=== PATIENT | female | born 1965 | race Caucasian/White ===

== ENCOUNTER 2016-06-18 16:03 | Emergency (ER) | payer BC ==
--- NOTE | 2016-06-18 17:11 | ED ---
General Adult HPI - General Chief complaint: Psychiatric Symptoms Stated complaint: Can't Sleep Time Seen by Provider: 06/18/16 16:38 Source: patient, family, RN notes reviewed Mode of arrival: ambulatory Limitations: no limitations - History of Present Illness Initial comments: Chief complaint and history of present illness is a 50-year-old female with a complaint of not being able to sleep for a prolonged period of time. States she 's been depressed. Denies being suicidal but says he just doesn't care anymore. - Related Data Home Medications Medication Instructions Recorded Confirmed QUEtiapine [SEROquel] 150 mg PO HS 06/18/16 06/18/16 Topiramate [Topamax] 100 mg PO HS 06/18/16 06/18/16 clonazePAM [KlonoPIN] 1 mg PO BID 06/18/16 06/18/16 Allergies Allergy/AdvReac Type Severity Reaction Status Date / Time Tetracyclines Allergy Anaphylaxis Verified 06/18/16 16:46 Review of Systems ROS Statement: Those systems with pertinent positive or pertinent negative responses have been documented in the HPI. Review of systems denying any headache or chest pain or shortness of breath no GI/ problems this time. Emotionally the patient is distressed Sleep. She seeing a psychiatrist has been manipulating medications nor can her sleep which she's not been able to. She does report she drinks wine 3 times weekly in order to help her sleep but is only good for several hours. Patient denying any chronic medical problems that need treatment at this time. All systems reviewed. Past medical problems significant for depression which started after she lost boy twin at 26 weeks of gestation. The sister survived. She is 25 years old now. The patient has had multiple surgeries to of which were new [place] pl[place] for hiatal hernia. The last one just 4 months ago. While in the hospital that time she started him difficulty sleeping has not been helpful to become regular since then. Other medical problems include chronic neck pain for which she is taking Botox injections which haven't helped. She's had a surgeries include hysterectomy, benign left knee surgeries 1 right knee surgery. Reconstruction left ankle, surgery left rotator cuff, tonsils and adenoids and cholecystectomy. Family history mother had uterine cancer, and uncle had colon cancer and a grandmother had pink ready cancer. She does not smoke. Drinks wine 3 times weekly. ROS Other: All systems not noted in ROS Statement are negative. Past Medical History Past Medical History: GERD/Reflux Additional Past Medical History / Comment(s): hypotension, CHRONIC NAUSEA History of Any Multi-Drug Resistant Organisms: None Reported Past Surgical History: Section, Cholecystectomy, Hysterectomy, Orthopedic Surgery Additional Past Surgical History / Comment(s): left shoulder, left knee x9, left ankle ligament sx, right leg burstula, breast cyst, hip cyst, neck surgery , greg 4 years ago Past Anesthesia/Blood Transfusion Reactions: No Reported Reaction Past Psychological History: Anxiety, Depression Smoking Status: Former smoker Past Alcohol Use History: Occasional Past Drug Use History: None Reported - Past Family History Mother Family Medical History: Cancer Additional Family Medical History / Comment(s): cervical cancer General Exam - General Exam Comments Initial Comments: General: The patient is awake and alert, crying and distress. States she is depressed, states she just doesn't care anymore. States she's not able to sleep at all. His fatigued all the time. Medication alterations by her psychiatrist haven't resulted in adequate resolution of the sleep problems. Vital signs show temperature 90.8 pulse 83 respiratory rate 20 pulse ox 98% room air blood pressure 137/101. Elevated systolic diastolic noted. Patient will be observed Eye: Pupils are equal, round and reactive to light, extra-ocular movements are intact ; there is normal conjunctiva bilaterally. No signs of icterus. Ears, nose, mouth and throat: There are moist mucous membranes and no oral lesions. Neck: The neck is supple, there is no tenderness or JVD. Cardiovascular: There is a regular rate and rhythm. No murmur, rub or gallop is appreciated. Respiratory: Lungs are clear to auscultation, respirations are non-labored, breath sounds are equal. No wheezes, stridor, rales, or rhonchi. Gastrointestinal: Soft, non-distended, non-tender abdomen without masses or organomegaly noted. There is no rebound or guarding present. No CVA tenderness. Bowel sounds are unremarkable. Back: There is no tenderness to palpation in the midline. There is no obvious deformity. No rashes noted. Musculoskeletal: Normal ROM, no tenderness, There is no pedal edema. There is no calf tenderness or swelling. Sensation intact. Pulses equal bilaterally 2+. Neurological: No evidence of any neuro deficits. No complaints of weakness numbness or tingling. Skin: Skin is warm and dry and no rashes or lesions are noted. Psychiatric: Cooperative, sad, depressed, denies suicide but states she just doesn't care anymore. Unable to sleep. No medications are helping. History of depression.. Limitations: no limitations Course Vital Signs 06/18/16 06/18/16 16:09 19:09 Temperature 98.4 F Pulse Rate 83 78 Respiratory 20 16 Rate Blood Pressure 137/101 131/94 O2 Sat by Pulse 98 98 Oximetry Medical Decision Making - Medical Decision Making Patient's breath alcohol was negative. Her urine drugs negative. She was evaluated by the psychiatric nurse who spoke with psychiatrist on-call. The plans for the patient be discharged home to the care of her . Her cervical be doubled the current dose. And she'll be following up with her psychiatrist this week. was told return emergency room with her should she have any difficulties. - Lab Data Lab Results 06/18/16 Range/Units 16:10 Urine Opiates Screen Not Detected (NotDetected) Ur Oxycodone Screen Not Detected (NotDetected) Urine Methadone Screen Not Detected (NotDetected) Ur Propoxyphene Screen Not Detected (NotDetected) Ur Barbiturates Screen Not Detected (NotDetected) U Tricyclic Antidepress Not Detected (NotDetected) Ur Phencyclidine Scrn Not Detected (NotDetected) Ur Amphetamines Screen Not Detected (NotDetected) U Methamphetamines Scrn Not Detected (NotDetected) U Benzodiazepines Scrn Not Detected (NotDetected) Urine Cocaine Screen Not Detected (NotDetected) U Marijuana (THC) Screen Not Detected (NotDetected) Disposition Clinical Impression: Depression Disposition: HOME SELF-CARE Condition: Fair Instructions: Depression (ED) Additional Instructions: Follow-up with your psychiatrist this week. He wants to do double her Seroquel dose here currently taking. Time of Disposition: 19:23
[2016-06-18 19:10] VITALS: RESP 16
[2016-06-18 20:45] VITALS: BP 137/90; PULSE 81; TEMP 98.1
== END 2016-06-18 20:44 | disposition home or self-care (01) ==
LOC: EC 16:03
DX: F32.9 Major depressive disorder, single episode, unspecified (principal); F41.9 Anxiety disorder, unspecified; Z87.891 Personal history of nicotine dependence; Z79.899 Other long term (current) drug therapy; Z88.1 Allergy status to other antibiotic agents
CPT/HCPCS: 80306; 82075; 99283

== ENCOUNTER → 2016-10-20 | Outpatient (CLI) | payer BC ==
--- NOTE | 2016-10-21 06:32 | CONS ---
DATE OF CONSULTATION: 10/20/2016 A 50-year-old lady had been evaluated in sleep center for sleep problem and possible obstructive sleep apnea hypopnea syndrome. HISTORY OF PRESENT ILLNESS/SLEEP WAKE EVALUATION: SLEEP SCHEDULE: The patient usually goes to bed around 9:30 to 10 p.m. FALLING ASLEEP: Sometimes she falls asleep well, but sometimes she takes for her long time to fall asleep and sometimes she referred that she does not sleep at all, although according to her she possibly sleeps, but does not realize how much. DURING SLEEP: She sleeps very short intervals and she wakes up multiple times with episodes of nocturia up to 3 times. She snores, wakes up with grinding teeth, dry mouth, panic attack, heartburn, restless legs, sweating. She has jerking movements and possible kicking during the night, night sweats. No clear history of hypnagogic hallucinations, sleep paralysis or cataplexy. DURING THE DAY/WAKE STATE: During the day, she feels extremely sleepy according to her. [place] sleepiness scale which increased to 24. PAST MEDICAL HISTORY: Positive for acid reflux, irritable bowel syndrome, allergy. PAST SURGICAL HISTORY: Tawnya fundoplication, hysterectomy, neck surgery, C- section, cholecystectomy, tonsillectomy, left knee surgery, left hip surgery and left shoulder surgery. MEDICATIONS: ( ), Flexeril, Prilosec, Topamax, Bentyl, multivitamins, Flonase, Zofran. SOCIAL HISTORY: Positive for smoking up to 2 packs a day for 20 years, quit about 7 years ago. Alcohol consumption occasional. REVIEW OF SYSTEMS: Awakenings from sleep, pain in her neck, probably with the bowel movements.No fevers. No double vision. No recent chest pain. No shortness of breath. No abdominal pain. No bleeding episodes. No blood in urine. No seizure episodes. FAMILY HISTORY: Hypertension, angina, heart problems, hyperlipidemia, stroke, arthritis, asthma, sinus problems, bronchitis, lung problems, sleep apnea, snoring, pneumonia, headaches, cancer, insomnia, acid reflux, ulcers, nasal polyps, anemia, mental illness, restless legs. PHYSICAL EXAMINATION: During physical exam, a 50-year-old lady without distress. VITAL SIGNS: BP 118/81. HR 82. RR 12. Height 64-1/2 inches, weight 142.2. BMI 23.9. Neck 13 inches in circumference. Temperature 98.. Oxygen saturation in room air 94%. HEENT: PERRLA, EOMI: Evaluation of oropharynx showed moderately low position of soft palate. Practically normal distance between soft palpate and posterior pharyngeal wall, slight restriction of nasal breathing. NECK: Supple No JVD. Thyroid is not palpable. LUNGS: Clear to percussion and to auscultation. Good air exchange. No wheezing or rhonchi. HEART: S1, S2 regular. No murmurs, gallops or rubs. ABDOMEN: Soft and nontender. Bowels sounds are present. No organomegaly appreciated. EXTREMITIES: No clubbing or cyanosis. RADIOLOGIC ELECTRONIC SPECIALIST: Awake, alert and oriented x3. Cranial nerves 2 to 7 intact. There is no fasciculation or atrophy noted. No focal deficits observed. IMPRESSION: 1. Snoring, multiple awakenings from sleep with multiple episodes of ( ) , tiredness and sleepiness during the day with extremely high [place] sleepiness scale 24. Rule out obstructive sleep apnea hypopnea syndrome. 2. Sleep state misperception. 3. History of kicking at night, periodic limb movements. 4. Restless leg syndrome. 5. Acid reflux. 6. Allergy. 7. Irritable bowel syndrome. 8. Status post Tawnya fundoplication. 9. Status post hysterectomy. 10. Status post left shoulder surgery. 11. Status post neck surgery. 12. Status post cholecystectomy. 13. Status post tonsillectomy. 14. Status post left knee surgery. 15. Status post left hip surgery. PLAN: 1. Polysomnography for evaluation of patient's breathing during sleep. 2. CPAP/BiPAP titration if sleep study confirms obstructive sleep apnea- hypopnea syndrome. 3. Preferable position during sleep on the side. 4. No driving if patient feels any sleepiness. Patient is aware of civil and criminal liability for unsafe driving. 5. I will see patient for follow-up visit to explain results of the testing and following plan. Thank you very much for referring this patient for consultation. Sincerely, Garrett Lopez MD, PhD, FAASM Diplomat of [place] [employer] Sleep Medicine Board by [place] [employer] [place] [employer] Network Support Analyst of [facility] [place]. PATRICK
== END | disposition home or self-care (01) ==
LOC: SLEEP 11:56
PROVIDERS: ATTEND Internal Medicine
DX: F51.02 Adjustment insomnia (principal); R06.83 Snoring; G25.81 Restless legs syndrome; K21.9 Gastro-esophageal reflux disease without esophagitis; T78.40XA Allergy, unspecified, initial encounter; K58.9 Irritable bowel syndrome, unspecified; Z90.710 Acquired absence of both cervix and uterus; Z90.49 Acquired absence of other specified parts of digestive tract; Z87.891 Personal history of nicotine dependence; Z98.890 Other specified postprocedural states
CPT/HCPCS: 99211

== ENCOUNTER → 2017-04-14 | Outpatient (CLI) | payer BC ==
--- NOTE | 2017-04-17 19:58 | MR ---
EXAMINATION TYPE: MR cervical spine wo/w con DATE OF EXAM: 04/14/2017 COMPARISON: Cervical spine radiographs dated 12/04/2014 HISTORY: Neck pain, headaches, BUE weakness TECHNIQUE: Multiplanar, multisequence images of the cervical spine were acquired utilizing 7.5 mL intravenous Ga davist gadolinium contrast. Diffusion weighted imaging was performed. FINDINGS: There is postsurgical anterior cervical fusion device from C4 through C6. Multilevel disc d esiccation is seen in the cervical spine. There is no evidence of malalignment or vertebral body heig ht loss. T1/T2 hyperintense well-circumscribed vertebral body hemangioma is present of T3. Degenerati ve endplate changes seen at the inferior end plate of C2. Otherwise bone marrow signal is within norm al limits. Spinal cord segment is also within normal limits. There is no abnormal postcontrast enhanc ement within the spinal cord or cervical spine. Visualized portion of the posterior fossa is grossly unremarkable. C2-C3: There is a broad-based posterior central disc osteophyte complex without significant spinal ca nal stenosis or neural foraminal narrowing. C3-C4: There is a small posterior disc osteophyte complex minimally narrowing the spinal canal gratin g mild spinal canal stenosis as it narrows the ventral subarachnoid space. No neural foraminal narrow ing is seen. C4-C5: Postsurgical changes of a cervical fusion are noted. No significant residual disc disease or n eural foraminal narrowing. No spinal canal stenosis. C5-C6: Postsurgical changes of a cervical fusion are noted. No significant residual disc disease or r ight-sided foraminal narrowing. Uncovertebral hypertrophy creates mild left neural foraminal narrowin g. No spinal canal stenosis. C6-C7: Small left paracentral disc herniation creates mild spinal canal stenosis as a narrows the anat tral subarachnoid space. Uncovertebral hypertrophy also creates mild bilateral neural foraminal narro wing. C7-T1: No evidence for degenerative disc disease. No disc bulge/herniation or protrusion. No Canal stenosis. Foramina are patent bilaterally. Cervical segments are intact. There is normal alignment. Cervical spinal cord is of normal signal. Craniovertebral junction relationships are within normal limits. IMPRESSION: Small left paracentral disc herniation at C6-C7 creating mild spinal canal stenosis. Uncovertebral hy pertrophy at this level creates mild bilateral neural foraminal narrowing. 2. Postsurgical changes of anterior cervical fusion device from C4 through C6 without abnormal postco ntrast enhancement to suggest epidural fibrosis. 3. Mild multilevel degenerative disc disease of the cervical spine as described above creating mild l eft neural foraminal narrowing at C5-C6, mild spinal canal stenosis at C3-C4, and mild bilateral neur al foraminal narrowing at C6-C7.
== END | disposition home or self-care (01) ==
LOC: RADMRIMAIN 15:45
PROVIDERS: ATTEND Family Medicine
DX: M48.02 Spinal stenosis, cervical region (principal); M99.71 Connective tissue and disc stenosis of intervertebral foramina of cervical region; M50.123 Cervical disc disorder at C6-C7 level with radiculopathy; Z98.1 Arthrodesis status
CPT/HCPCS: 72156; A9581

== ENCOUNTER 2017-05-13 09:19 | Emergency (ER) | payer BC ==
[2017-05-13 09:25] VITALS: RESP 16
[2017-05-13] MEDS ORDERED: PROPARACAINE 0.5% OPHTH DROPS 15 ML BTL ONE (09:46)
[2017-05-13] MEDS ORDERED: PROPARACAINE 0.5% OPHTH DROPS 15 ML BTL LEFT EYE STA (09:46)
--- NOTE | 2017-05-13 10:29 | ED ---
General Adult HPI - General Chief complaint: Eye Problems Stated complaint: [place] paint in eye Time Seen by Provider: 05/13/17 09:45 Source: patient, family, RN notes reviewed Mode of arrival: ambulatory Limitations: no limitations - History of Present Illness Initial comments: Patient 51-year-old female who presents emergency room today with chief complaint of increased irritation to both right and left side. She states that yesterday she was using some spray pain. She states she uses turpentine to cleaning up afterwards. She states she believes and she washed her face and maybe had some leftover residue of the turpentine and hands. She states as the day went on she had increased irritation especially to the right eye with some mild irritation to the left. Patient does admit that she did something similar back in the summer time. She denies any other complaints or symptoms. Patient denies any recent fever, chills, shortness of breath, chest pain, back pain, abdominal pain, nausea or vomiting, numbness or tingling, headaches, or any other complaints. - Related Data Home Medications Medication Instructions Recorded Confirmed QUEtiapine [SEROquel] 150 mg PO HS 06/18/16 06/18/16 Topiramate [Topamax] 100 mg PO HS 06/18/16 06/18/16 clonazePAM [KlonoPIN] 1 mg PO BID 06/18/16 06/18/16 Previous Rx's Medication Instructions Recorded Tobramycin 0.3% Ophth Soln [Tobrex 1 - 2 drop BOTH EYES QID 7 Days ml 05/13/17 0.3% Ophth Soln] Allergies Allergy/AdvReac Type Severity Reaction Status Date / Time Tetracyclines Allergy Anaphylaxis Verified 05/13/17 09:25 Review of Systems ROS Statement: Those systems with pertinent positive or pertinent negative responses have been documented in the HPI. ROS Other: All systems not noted in ROS Statement are negative. Past Medical History Past Medical History: GERD/Reflux Additional Past Medical History / Comment(s): hypotension, CHRONIC NAUSEA History of Any Multi-Drug Resistant Organisms: None Reported Past Surgical History: Section, Cholecystectomy, Hysterectomy, Orthopedic Surgery Additional Past Surgical History / Comment(s): left shoulder, left knee x9, left ankle ligament sx, right leg burstula, breast cyst, hip cyst, neck surgery , greg 4 years ago Past Anesthesia/Blood Transfusion Reactions: No Reported Reaction Past Psychological History: Anxiety, Depression Smoking Status: Former smoker Past Alcohol Use History: Occasional Past Drug Use History: None Reported - Past Family History Mother Family Medical History: Cancer Additional Family Medical History / Comment(s): cervical cancer General Exam - General Exam Comments Initial Comments: General: The patient is awake and alert, in no distress, and does not appear acutely ill. Eye: Pupils are equal, round and reactive to light, extra-ocular movements are intact. No nystagmus. There is normal conjunctiva bilaterally. No signs of icterus. Watery discharge bilaterally. Ears, nose, mouth and throat: There are moist mucous membranes and no oral lesions. Neck: The neck is supple, there is no tenderness or JVD. Musculoskeletal: Normal ROM, no tenderness. Strength 5/5. Sensation intact. Pulses equal bilaterally 2+. Neurological: A&O x 3. CN II-XII intact, There are no obvious motor or sensory deficits. Coordination appears grossly intact. Speech is normal. Skin: Skin is warm and dry and no rashes or lesions are noted. Psychiatric: Cooperative, appropriate mood & affect, normal judgment. Limitations: no limitations Course Vital Signs 05/13/17 09:22 Temperature 97.8 F Pulse Rate 91 Respiratory 16 Rate Blood Pressure 119/58 O2 Sat by Pulse 98 Oximetry Procedures - Procedures Initial comment: Both left and right eye were anesthetized locally with proparacaine. Fluorescein was used to stain the eyes with Wood's lamp revealing small abrasions on conjunctiva bilaterally. No signs of foreign body which were inverted. Patient's eyes were flushed with saline. Feeling much better at this time. Will be discharged home placed on antibiotic to cover for any infection. Advised follow-up with refuge manager over the next 2 days. Advised use artificial tears without preservative as needed for comfort. Disposition Clinical Impression: Corneal abrasion Disposition: HOME SELF-CARE Condition: Good Instructions: Corneal Abrasion (ED) Additional Instructions: Please use eyedrops as prescribed in artificial tears without preservative as needed for comfort. Please follow-up the refuge manager over the next 2 days if symptoms persist or return here to emergency room if any symptoms increase or worsen or for any other concerns. Prescriptions: Tobramycin 0.3% Ophth Soln [Tobrex 0.3% Ophth Soln] 1 - 2 drop BOTH EYES QID 7 Days ml Referrals: Raghavendra Hodge Jr, [Primary Care Provider] - 1-2 days Arvin Tineo MD [STAFF PHYSICIAN] - 1-2 days Time of Disposition: 10:27
[2017-05-13 10:34] VITALS: BP 121/60; PULSE 82; TEMP 97.9
== END 2017-05-13 10:34 | disposition home or self-care (01) ==
LOC: EC 09:19
DX: S05.02XA Injury of conjunctiva and corneal abrasion without foreign body, left eye, initial encounter (principal); S05.01XA Injury of conjunctiva and corneal abrasion without foreign body, right eye, initial encounter; F32.9 Major depressive disorder, single episode, unspecified; Z87.891 Personal history of nicotine dependence; Z79.899 Other long term (current) drug therapy; Z88.1 Allergy status to other antibiotic agents; X58.XXXA Exposure to other specified factors, initial encounter; Y93.89 Activity, other specified
CPT/HCPCS: 99283

== ENCOUNTER → 2017-07-06 | Outpatient (CLI) | payer BC ==
[2017-07-06 16:07] LABS: Partial Thromboplastin Time 24.1 sec (22.0-30.0); Prothrombin Time 9.8 sec (9.0-12.0)
[2017-07-06 16:34] LABS: T4, Free (Free Thyroxine) 0.72 ng/dL (0.78-2.19)
[2017-07-07 00:41] LABS: Protein, Total 6.7 g/dL (6.2-8.2)
[2017-07-07 00:50] LABS: DNA Double-Stranded NEGATIVE (NEGATIVE)
[2017-07-07 04:01] LABS: Hemoglobin A1C 5.3 % (4.0-6.0)
[2017-07-07 13:21] LABS: Lyme IgG/IgM 0.1 Index
== END | disposition home or self-care (01) ==
LOC: LABWHC1 15:25
PROVIDERS: ATTEND Psychiatry & Neurology Neurology
DX: R53.1 Weakness (principal); G62.9 Polyneuropathy, unspecified
CPT/HCPCS: 36415; 82550; 82607; 82747; 83036; 84165; 84439; 84443; 85610; 85652; 85730; 86038; 86225; 86618; 86780

== ENCOUNTER → 2017-07-21 | Outpatient (CLI) | payer BC ==
--- NOTE | 2017-07-21 13:45 | MR ---
EXAMINATION TYPE: MR angio head wo con DATE OF EXAM: 07/21/2017 COMPARISON: NONE HISTORY: Migraine without aura CONTRAST: None TECHNIQUE: Multiplanar multiecho imaging on a 3.0 Kimberly magnet is performed through the [place]. 3-D [id number] imaging is performed. Source images are reviewed on the computer in the axi al plane. Reconstructed images rotating on the computer are reviewed. FINDINGS: The internal carotid arteries bifurcate normally into A1 and M1 segments. The A2 segments are normal. Middle cerebral artery branches are normal. Anterior communicating artery is patent. The right posterior communicating artery is small but patent. The left posterior communicating artery is small but patent. Vertebrobasilar arteries within the [id number] are normal. Posterior cerebral vasculature is norm al. No suspicious aneurysm or aneurysmal dilatation is evident. No obstructions are identified. No significant flow-limiting stenosis is evident. IMPRESSIONS: 1. NORMAL MRA [place].
--- NOTE | 2017-07-21 13:52 | MR ---
EXAMINATION TYPE: MR brain wo/w con DATE OF EXAM: 07/21/2017 COMPARISON: NONE HISTORY: Migraine without aura CONTRAST: Performed utilizing 6.5 mL intravenous Gadavist gadolinium contrast. TECHNIQUE: Multiplanar, multiecho imaging on a 3.0 Kimberly magnet is performed through the brain. Stud y is performed within 24 hours of arrival to the hospital. The craniovertebral junction is normal. The pituitary is normal. Diffusion-weighted imaging is performed. No abnormal hyperintensity is present to suggest an acute i ntracranial infarct or acute ischemic change. There are 4 punctate hyperintensities on T2 and inversion recovery weighted sequences. The largest in the anterior frontal lobe adjacent to the anterior horn lateral ventricle. Series 501 image 18. Thi s measures 0.4 cm in diameter . The largest on the right is in the superior subcortical right lobe fr ontal white matter and measures 0.3 cm series 501 image 25. Findings are nonspecific. Findings can be compatible with migraine headaches. Microvascular ischemic change among other etiologies should be c onsidered. Ventricles and sulci are appropriate for the patient age. No abnormal enhancement is evident. IMPRESSIONS: 1. Nonspecific white matter changes not out of portion of the patient age. This finding can be associ ated with migraine headaches. 2. No acute abnormality evident
== END | disposition home or self-care (01) ==
LOC: RADMRIMAIN 12:12
PROVIDERS: ATTEND Psychiatry & Neurology Neurology
DX: R90.89 Other abnormal findings on diagnostic imaging of central nervous system (principal); G43.019 Migraine without aura, intractable, without status migrainosus
CPT/HCPCS: 70544; 70553; A9581

== ENCOUNTER → 2017-10-11 | Outpatient (CLI) | payer BC ==
--- NOTE | 2017-10-12 10:45 | MM ---
Reason for exam: screening (asymptomatic). Last mammogram was performed 2 years and 10 months ago. History: 2 benign excisional biopsies of the left breast. Took hormonal contraceptives for 10 years beginning at age 18. Physical Findings: A clinical breast exam by your physician is recommended on an annual basis and results should be correlated with mammographic findings. MG Screening Mammo w CAD Bilateral CC and MLO view(s) were taken. Prior study comparison: December 04, 2014, bilateral MG screening mammo w CAD. November 01, 2013, bilateral MG screening mammo w CAD. The breast tissue is extremely dense which could obscure a lesion on mammography. There is no discrete abnormality. No significant changes when compared with prior studies. ASSESSMENT: Negative, BI-RAD 1 RECOMMENDATION: Routine screening mammogram of both breasts in 1 year.
== END | disposition home or self-care (01) ==
LOC: RADMAMWWP 14:15
PROVIDERS: ATTEND Obstetrics & Gynecology
DX: Z12.31 Encounter for screening mammogram for malignant neoplasm of breast (principal)
CPT/HCPCS: 77067

== ENCOUNTER → 2017-10-24 | Outpatient (CLI) | payer BC ==
--- NOTE | 2017-10-24 17:31 | MR ---
EXAMINATION TYPE: MR cervical spine wo/w con DATE OF EXAM: 10/24/2017 COMPARISON: 04/14/2017 HISTORY: 51-year-old female cervicalgia and neck pain, prior surgery Technique: Multiplanar, multisequence images of the cervical spine were obtained before and after adm inistration of 6 mL intravenous Gadavist gadolinium contrast. FINDINGS: The craniocervical junction anomaly, predental space widening, or prevertebral soft tissue swelling. Redemonstrated postsurgical changes of C4-C6 ACDF. There is a component of very mild congenital spina l canal narrowing of the cervical spine with AP canal dimension of 1.1 cm. Mild degenerative disc disease along the unfused portion characterized by disc desiccation. Redemonstrated tiny left paracentral disc protrusion at C6-C7 below the fusion now with an annular fi ssure. Scattered facet degenerative changes present. At C2-C3, there is facet degenerative change without significant canal or foraminal stenosis. At C3-C4, tiny central disc protrusion may be slightly increased but does not contribute to significa nt spinal canal stenosis. Mild facet degenerative change without significant neural foraminal stenosi s. At C4-C5, diffuse level, mild facet arthropathy without significant canal or foraminal stenosis. At C5-C6, there is some posterior osteophytic ridging with uncovertebral joint arthropathy on the rig ht and mild facet degenerative change. This causes mild right-sided neural foraminal narrowing, simil ar to the prior exam. Similar relatively mild narrowing of the canal without significant spinal canal stenosis. At C6-C7, tiny left paracentral disc protrusion. This slightly accentuates the mild congenital canal narrowing as seen previously. No cord compression or significant cord deformity. Uncovertebral joint and facet degenerative changes present without significant neural foraminal stenosis. At C7-T1, mild facet degenerative change without significant canal or foraminal stenosis. Normal course and signal intensity of the cervical cord. No abnormal enhancement within the spinal canal. IMPRESSION: 1. Redemonstrated post surgical changes of C4-C6 ACDF. 2. A component of mild congenital spinal canal narrowing throughout the cervical spine. There is supe rimposed multilevel mild degenerative disc disease along the unfused portions and scattered mild unco vertebral joint and facet arthropathy. 3. Redemonstrated tiny left paracentral disc protrusion at C6-C7. This slightly accentuates the mild congenital canal narrowing but does not cause any cord deformation or canal compromise. There is a ne w posterior annular fissure here. 4. Facet and uncovertebral joint arthropathy contribute to similar mild right-sided neural foraminal stenosis at C5-C6.
== END | disposition home or self-care (01) ==
LOC: RADMRIMAIN 15:42
PROVIDERS: ATTEND Physical Medicine & Rehabilitation
DX: M99.71 Connective tissue and disc stenosis of intervertebral foramina of cervical region (principal); M50.223 Other cervical disc displacement at C6-C7 level; M50.10 Cervical disc disorder with radiculopathy, unspecified cervical region; M46.92 Unspecified inflammatory spondylopathy, cervical region; G89.4 Chronic pain syndrome; R20.2 Paresthesia of skin; M75.50 Bursitis of unspecified shoulder; K59.03 Drug induced constipation; Z79.891 Long term (current) use of opiate analgesic; Z98.890 Other specified postprocedural states
CPT/HCPCS: 72156; A9581

== ENCOUNTER 2018-02-03 11:45 | Emergency (ER) | payer BC ==
[2018-02-03 11:53] VITALS: RESP 18
[2018-02-03] MEDS ORDERED: MORPHINE SULFATE 4 MG/ML SYRINGE IV STA (12:20)
[2018-02-03] MEDS ORDERED: ONDANSETRON 4 MG/2 ML VIAL IVP STA (12:20)
[2018-02-03] MEDS ORDERED: SODIUM CHLORIDE 0.9% 500 ML 500 ML IV STA (12:20)
[2018-02-03] MEDS ORDERED: PANTOPRAZOLE 40 MG/10 ML VIAL IVP STA (12:20)
[2018-02-03] MEDS ORDERED: SODIUM CHLORIDE 0.9% 1,000 ML IV STA ×3 (12:20→13:41)
--- NOTE | 2018-02-03 12:31 | ED ---
Abdominal Pain HPI - General Chief Complaint: Abdominal Pain Stated Complaint: Abd Pain Time Seen by Provider: 02/03/18 12:02 Source: patient, RN notes reviewed, old records reviewed Mode of arrival: ambulatory Limitations: no limitations - History of Present Illness Initial Comments: This is a 52-year-old female the ER for evaluation of epigastric abdominal pain , abdominal tenderness with nausea vomiting diarrhea. Patient has history of severe gastritis, she is having these patient, she does have history of pancreatitis or gallbladder has been removed. This feels just like prior history of pancreatitis MD Complaint: abdominal pain -: hour(s) Location: diffuse, epigastric Radiation: back Migration to: no migration Severity: severe Severity scale (1-10): 8 Quality: aching, dull, burning Consistency: constant Improves With: nothing Worsens With: nothing Associated Symptoms: nausea, vomiting, diarrhea - Related Data Home Medications Medication Instructions Recorded Confirmed Cetirizine HCl [Zyrtec] 10 mg PO HS 02/03/18 02/03/18 Cyclobenzaprine [Flexeril] 5 mg PO TID 02/03/18 02/03/18 Dicyclomine [Bentyl] 10 mg PO BID PRN 02/03/18 02/03/18 Fluticasone Nasal [place] [Flonase 2 spr EA NOSTRIL DAILY 02/03/18 02/03/18 Nasal [place]] L.acidoph,Paracasei, B.lactis 1 cap PO DAILY 02/03/18 02/03/18 [Probiotic] Lidocaine 5% Patch [Lidoderm] 3 patch TOPICAL HS 02/03/18 02/03/18 Naloxegol Oxalate [Movantik] 25 mg PO DAILY 02/03/18 02/03/18 Nitrofurantoin Monohyd/M-Cryst 100 mg PO DAILY PRN 02/03/18 02/03/18 [Macrobid] Omeprazole [PriLOSEC] 20 mg PO AC-BID 02/03/18 02/03/18 Ondansetron HCl [Zofran] 8 mg PO Q4H 02/03/18 02/03/18 Tapentadol HCl [Nucynta] 100 mg PO Q6H 02/03/18 02/03/18 traZODone HCL [Desyrel] 400 mg PO HS 02/03/18 02/03/18 Allergies Allergy/AdvReac Type Severity Reaction Status Date / Time Tetracyclines Allergy Anaphylaxis Verified 02/03/18 14:08 Review of Systems ROS Statement: Those systems with pertinent positive or pertinent negative responses have been documented in the HPI. ROS Other: All systems not noted in ROS Statement are negative. Past Medical History Past Medical History: GERD/Reflux Additional Past Medical History / Comment(s): hypotension, CHRONIC NAUSEA, chronic neck pain, migraines, pancreatitis History of Any Multi-Drug Resistant Organisms: None Reported Past Surgical History: Section, Cholecystectomy, Hysterectomy, Orthopedic Surgery Additional Past Surgical History / Comment(s): left shoulder, left knee x9, left ankle ligament sx, right leg burstula, breast cyst, hip cyst, neck surgery , greg 4 years ago Past Anesthesia/Blood Transfusion Reactions: No Reported Reaction Past Psychological History: Anxiety, Depression Smoking Status: Former smoker Past Alcohol Use History: Occasional Past Drug Use History: None Reported - Past Family History Mother Family Medical History: Cancer Additional Family Medical History / Comment(s): cervical cancer General Exam Limitations: no limitations General appearance: alert, in no apparent distress, anxious Head exam: Present: atraumatic, normocephalic, normal inspection Eye exam: Present: normal appearance, PERRL, EOMI. Absent: scleral icterus, conjunctival injection, periorbital swelling ENT exam: Present: normal exam, mucous membranes moist Neck exam: Present: normal inspection. Absent: tenderness, meningismus, lymphadenopathy Respiratory exam: Present: normal lung sounds bilaterally. Absent: respiratory distress, wheezes, rales, rhonchi, stridor Cardiovascular Exam: Present: regular rate, normal rhythm, normal heart sounds. Absent: systolic murmur, diastolic murmur, rubs, gallop, clicks GI/Abdominal exam: Present: soft, tenderness, guarding (epigastric), normal bowel sounds. Absent: distended, rebound, rigid Extremities exam: Present: normal inspection, full ROM, normal capillary refill. Absent: tenderness, pedal edema, joint swelling, calf tenderness Back exam: Present: normal inspection Neurological exam: Present: alert, oriented X3, CN II-XII intact Psychiatric exam: Present: normal affect, normal mood Skin exam: Present: warm, dry, intact, normal color. Absent: rash Course Vital Signs 02/03/18 11:51 Temperature 97 F L Pulse Rate 84 Respiratory 18 Rate Blood Pressure 109/69 O2 Sat by Pulse 95 Oximetry - Reevaluation(s) Reevaluation #1: 02/03/18 12:29 Medical record is reviewed Reevaluation #2: 02/03/18 12:29 Patient has adequate pain control Medical Decision Making - Medical Decision Making 52 female presents ER today for evaluation of bowel pain possible pancreatitis. Labwork is normal CT scan is negative, patient will be discharged home pain is now controlled - Lab Data Result diagrams: 02/03/18 12:38 02/03/18 12:38 Lab Results 02/03/18 02/03/18 Range/Units 12:38 12:38 WBC 4.1 (3.8-10.6) k/uL RBC 4.16 (3.80-5.40) m/uL Hgb 14.0 (11.4-16.0) gm/dL Hct 42.3 (34.0-46.0) % MCV 101.7 H (80.0-100.0) fL MCH 33.8 (25.0-35.0) pg MCHC 33.2 (31.0-37.0) g/dL RDW 12.3 (11.5-15.5) % Plt Count 239 (150-450) k/uL Neutrophils % 64 % Lymphocytes % 25 % Monocytes % 8 % Eosinophils % 1 % Basophils % 0 % Neutrophils # 2.6 (1.3-7.7) k/uL Lymphocytes # 1.0 (1.0-4.8) k/uL Monocytes # 0.3 (0-1.0) k/uL Eosinophils # 0.0 (0-0.7) k/uL Basophils # 0.0 (0-0.2) k/uL Sodium 137 (137-145) mmol/L Potassium 4.4 (3.5-5.1) mmol/L Chloride 104 (98-107) mmol/L Carbon Dioxide 26 (22-30) mmol/L Anion Gap 7 mmol/L BUN 14 (7-17) mg/dL Creatinine 0.67 (0.52-1.04) mg/dL Est GFR (CKD-EPI)AfAm >90 (>60 ml/min/1.73 sqM) Est GFR (CKD-EPI)NonAf >90 (>60 ml/min/1.73 sqM) Glucose 93 (74-99) mg/dL Calcium 10.0 (8.4-10.2) mg/dL Total Bilirubin 0.4 (0.2-1.3) mg/dL AST 26 (14-36) U/L ALT 43 (9-52) U/L Alkaline Phosphatase 31 L (38-126) U/L Total Protein 6.4 (6.3-8.2) g/dL Albumin 3.7 (3.5-5.0) g/dL Amylase 87 (30-110) U/L Lipase 154 (23-300) U/L - Radiology Data Radiology results: report reviewed (CT abdomen and pelvis negative for acute disease), image reviewed Disposition Clinical Impression: Abdominal pain Disposition: HOME SELF-CARE Condition: Good Instructions: Abdominal Pain (ED) Is patient prescribed a controlled substance at d/c from ED?: No Referrals: Raghavendra Hodge Jr, [Primary Care Provider] - 1-2 days
[2018-02-03 12:48] LABS: Basophils % (A) 0 %; Eosinophils % (A) 1 %; HCT 42.3 % (34.0-46.0); Lymphocytes % (A) 25 %; MCH 33.8 pg (25.0-35.0); MCHC 33.2 g/dL (31.0-37.0); MCV 101.7 fL (80.0-100.0); Mean Platelet Volume 6.8; Monocytes # (A) 0.3 k/uL (0-1.0); Monocytes % (A) 8 %; Neutrophils # (A) 2.6 k/uL (1.3-7.7); Neutrophils % (A) 64 %; Platelet Count 239 k/uL (150-450); RBC 4.16 m/uL (3.80-5.40); RDW 12.3 % (11.5-15.5); WBC 4.1 k/uL (3.8-10.6)
[2018-02-03 12:59] LABS: ALT 43 U/L (9-52); AST 26 U/L (14-36); Albumin 3.7 g/dL (3.5-5.0); Alkaline Phosphatase 31 U/L (38-126); Amylase 87 U/L (30-110); Anion Gap 7 mmol/L; Blood Urea Nitrogen 14 mg/dL (7-17); Carbon Dioxide 26 mmol/L (22-30); Chloride 104 mmol/L (98-107); Glucose 93 mg/dL (74-99); Lipase 154 U/L (23-300); Potassium 4.4 mmol/L (3.5-5.1); Sodium 137 mmol/L (137-145); Total Bilirubin 0.4 mg/dL (0.2-1.3); Total Protein 6.4 g/dL (6.3-8.2)
--- NOTE | 2018-02-03 14:28 | CT ---
EXAMINATION TYPE: CT abdomen pelvis w con DATE OF EXAM: 02/03/2018 COMPARISON: 03/25/2015 HISTORY: 52-year-old female with Right flank pain. TECHNIQUE: Contiguous axial scanning of the abdomen and pelvis following administration of 100 ml Iso luis 300 IV contrast. Delayed images through the kidneys and coronal/sagittal reconstructions perform ed. CT DLP: 563.9 mGycm Automated exposure control for dose reduction was used. FINDINGS: Heart normal size without pericardial effusion. Mild dependent atelectasis is mild peribronchial cuff ing in the visualized lower lungs. No pleural effusion. Some post surgical changes at the GE junction, suspected recent fundoplication. Liver limits of normal in size at 17.4 cm. There is mild intrahepatic biliary ductal dilatation rede monstrated. The bile duct measures 1.1 cm which is mildly dilated versus 1.0 cm, previously. Adrenal glands, spleen, and pancreas appear grossly unremarkable. Subcentimeter hypodensities in both kidneys too small for accurate CT characterization, likely cysts. Bilateral extrarenal pelves incidentally noted. Symmetric uptake and excretion of contrast from the kidneys. No dilated small bowel, free fluid, or free air. Some prominent fluid-filled small bowel loops in the lower abdomen and pelvis. No mesenteric or retroperitoneal lymphadenopathy identified. Normal appendix. Small Evans umbilical hernia involving a short segment small bowel loop. There is scattered mild stool. Segmental areas of moderate circumferential wall thickening suggested involving the cecum, proximal third transverse colon, the descending colon, and segments of the sigmo id colon. A few retained medication tablets are noted one in the sigmoid colon and a couple near the sigmoid colon. Mild circumferential bladder wall thickening. Uterus appears surgically absent. There is mild pelvic ascites. Pelvic phleboliths. Ovaries are visualized. 1.5 cm cyst within the right ovary is unchanged from 2015. Bones: Osteitis pubis. Mild degenerative changes at the SI joints. No osseous destructive process. IMPRESSION: 1. NONSPECIFIC COLITIS WITH SEGMENTAL AREAS OF MODERATE CIRCUMFERENTIAL WALL THICKENING OF THE COLON. 2. MILD PELVIC ASCITES IS LIKELY REACTIVE. 3. BILE DUCT MILDLY DILATED AT 1.1 CM LIKELY RELATING TO POST CHOLECYSTECTOMY STATUS. THIS CAN BE COR RELATED WITH ALKALINE PHOSPHATASE AND BILIRUBIN LEVELS. 4. SMALL EVANS-TYPE UMBILICAL HERNIA INVOLVING A SHORT SEGMENT SMALL BOWEL LOOP. 5. MILD CIRCUMFERENTIAL BLADDER WALL THICKENING. CORRELATE TO EXCLUDE CYSTITIS.
[2018-02-03] MEDS ORDERED: HYDROmorphone 1 MG/ML 1 ML SYRINGE IVP STA (14:35)
[2018-02-03 16:08] VITALS: BP 113/72; PULSE 61; TEMP 97.6
== END 2018-02-03 16:12 | disposition home or self-care (01) ==
LOC: EC 11:45
DX: R10.13 Epigastric pain (principal); R11.2 Nausea with vomiting, unspecified; R19.7 Diarrhea, unspecified; K21.9 Gastro-esophageal reflux disease without esophagitis; F41.9 Anxiety disorder, unspecified; F32.9 Major depressive disorder, single episode, unspecified; Z79.899 Other long term (current) drug therapy; Z88.1 Allergy status to other antibiotic agents; Z87.891 Personal history of nicotine dependence; Z90.49 Acquired absence of other specified parts of digestive tract; Z90.710 Acquired absence of both cervix and uterus
CPT/HCPCS: 36415; 80053; 82150; 83690; 85025; 74177; 99284; 96374; 96375 ×3; 96361 ×3; J2270; J2405; J1170; C9113; Q9967

== ENCOUNTER 2018-03-08 12:02 | Emergency (ER) | payer BC ==
[2018-03-08 12:06] VITALS: RESP 18
[2018-03-08] MEDS ORDERED: HYDROmorphone 1 MG/ML 1 ML SYRINGE IVP STA ×2 (12:28→14:11)
--- NOTE | 2018-03-08 13:51 | US ---
EXAMINATION TYPE: US venous doppler duplex LE LT DATE OF EXAM: 03/08/2018 1:17 PM COMPARISON: NONE CLINICAL HISTORY: Pain. Left total knee replacement on 02/27/2018. Pain. On blood thinners. SIDE PERFORMED: Left TECHNIQUE: The lower extremity deep venous system is examined utilizing real time linear array sonog el with graded compression, doppler sonography and color-flow sonography. VESSELS IMAGED: External Iliac Vein (EIV) Common Femoral Vein Deep Femoral Vein Greater Saphenous Vein * Femoral Vein Popliteal Vein Small Saphenous Vein * Proximal Calf Veins (* superficial vessels) Left Leg: Negative for DVT Grayscale, color doppler, spectral doppler imaging performed of the deep veins of the left lower extr emity. There is normal flow, compressibility, vascular waveforms. IMPRESSION: No ultrasound evidence for acute DVT in the left lower extremity.
--- NOTE | 2018-03-08 14:42 | ED ---
Extremity Problem HPI - General Chief complaint: Extremity Problem,Nontraumatic Stated complaint: POSS BLOOD CLOT LEFT LEG POST OP Time Seen by Provider: 03/08/18 12:14 Source: patient Mode of arrival: wheelchair Limitations: no limitations - History of Present Illness Initial comments: 52-year-old female with past medical history of multiple orthopedic procedure with most recent a TKA left performed by Dr. Yassine Hamilton at [facility] on 02/26. Pt states that she was at PT when she began experiencing posterior knee pain to palpation that stretched toward the left calf. Pt states that she takes eliquis only once daily instead of BID because she was told by her surgeon to reduce the dose due to pt experiencing nose bleeds on BID dosing. Pt was worried that she was subtherapeutic on only daily dosing and was concerned for possible blood clot of the left LE and presented for evaluation. Pt denies fever , chills,night sweats, increasing pain, redness or drainage from surgical site. Pt is afebrile upon arrival, however complains of post operative pain that has not changed since her surgery. Upon arrival pt appears well, ambulating with walker. VS revealed tachycardia otherwise within acceptable limits. - Related Data Home Medications Medication Instructions Recorded Confirmed Cetirizine HCl [Zyrtec] 10 mg PO HS 02/03/18 03/08/18 Cyclobenzaprine [Flexeril] 5 mg PO TID 02/03/18 03/08/18 Dicyclomine [Bentyl] 10 mg PO BID PRN 02/03/18 03/08/18 Fluticasone Nasal [place] [Flonase 2 spr EA NOSTRIL DAILY 02/03/18 03/08/18 Nasal [place]] L.acidoph,Paracasei, B.lactis 1 cap PO DAILY 02/03/18 03/08/18 [Probiotic] Lidocaine 5% Patch [Lidoderm] 3 patch TOPICAL HS 02/03/18 03/08/18 Naloxegol Oxalate [Movantik] 25 mg PO DAILY 02/03/18 03/08/18 Nitrofurantoin Monohyd/M-Cryst 100 mg PO DAILY PRN 02/03/18 03/08/18 [Macrobid] Omeprazole [PriLOSEC] 20 mg PO AC-BID 02/03/18 03/08/18 Ondansetron HCl [Zofran] 8 mg PO Q4H 02/03/18 03/08/18 Tapentadol HCl [Nucynta] 100 mg PO Q6H 02/03/18 03/08/18 traZODone HCL [Desyrel] 400 mg PO HS 02/03/18 03/08/18 Apixaban [Eliquis] 2.5 mg PO DAILY 03/08/18 03/08/18 Lubiprostone [Amitiza] 24 mcg PO BID 03/08/18 03/08/18 clonazePAM [KlonoPIN] 1 mg PO BID 03/08/18 03/08/18 Allergies Allergy/AdvReac Type Severity Reaction Status Date / Time Tetracyclines Allergy Anaphylaxis Verified 03/08/18 13:26 Review of Systems ROS Statement: Those systems with pertinent positive or pertinent negative responses have been documented in the HPI. ROS Other: All systems not noted in ROS Statement are negative. ENT: Denies: ear pain, throat pain Respiratory: Denies: cough, dyspnea, wheezes, hemoptysis, stridor Cardiovascular: Denies: chest pain, palpitations Gastrointestinal: Denies: abdominal pain, nausea, vomiting, diarrhea, constipation, hematemesis Genitourinary: Denies: urgency, dysuria Musculoskeletal: Reports: arthralgia (left knee pain post operative). Denies: as per HPI, back pain Neurological: Denies: weakness, numbness, paresthesias, confusion, abnormal gait Past Medical History Past Medical History: GERD/Reflux Additional Past Medical History / Comment(s): hypotension, CHRONIC NAUSEA, chronic neck pain, migraines, pancreatitis History of Any Multi-Drug Resistant Organisms: None Reported Past Surgical History: Section, Cholecystectomy, Hysterectomy, Joint Replacement, Orthopedic Surgery Additional Past Surgical History / Comment(s): left shoulder, left knee x9, left ankle ligament sx, right leg burstula, breast cyst, hip cyst, neck surgery , greg 4 years ago Past Anesthesia/Blood Transfusion Reactions: No Reported Reaction Past Psychological History: Anxiety, Depression Smoking Status: Former smoker Past Alcohol Use History: Occasional Past Drug Use History: None Reported - Past Family History Mother Family Medical History: Cancer Additional Family Medical History / Comment(s): cervical cancer General Exam - General Exam Comments Initial Comments: General: The patient is awake and alert, in no distress, and does not appear acutely ill. Eye: Pupils are equal, round and reactive to light, extra-ocular movements are intact. No nystagmus. There is normal conjunctiva bilaterally. No signs of icterus. Ears, nose, mouth and throat: There are moist mucous membranes and no oral lesions. Neck: The neck is supple, there is no tenderness or JVD. Cardiovascular: There is a regular rate and rhythm. No murmur, rub or gallop is appreciated. Respiratory: Lungs are clear to auscultation, respirations are non-labored, breath sounds are equal. No wheezes, stridor, rales, or rhonchi. Musculoskeletal: Pt able to range with some discomfort of the left knee. Strength 5/5. Sensation intact of the LE. Dp pulses equal bilaterally 2+. Neurological: A&O x 3. CN II-XII intact, There are no obvious motor or sensory deficits. Coordination appears grossly intact. Speech is normal. Skin: Skin is warm and dry and no rashes or lesions are noted. No masses lesions of the posterior knee. Knees are nonerythematous, there is midline incision on the anterior knee steristrips in place, C/D/I. No drainage. No erythema. Mild warmth to palpation.There is mild bruising to the medial aspect of the left knee. (-) Homans. Pain to palpation of the posterior left calf ~ 4inches from the posterior knee. Psychiatric: Cooperative, appropriate mood & affect, normal judgment. Limitations: no limitations Course Vital Signs 03/08/18 03/08/18 12:03 14:56 Temperature 98.3 F 97.9 F Pulse Rate 111 H 97 Respiratory 18 18 Rate Blood Pressure 114/75 100/75 O2 Sat by Pulse 99 99 Oximetry Medical Decision Making - Medical Decision Making Pt stated she hasnt taken home pain medication in some time, requesting Dilaudid for pain medication. Given total 1mg during visit, improved pain. Duplex US L LE (-) for DVT. Post operative changes on PE, no signs of infection at this time. There was mild warmth without erythema of the left knee, minimal swelling. All changes appeared to be consistent with post-operative changes. I contacted pt surgeon speaking to Dr. Orellana who was abalone fisherman for his colleague Dr. Hamilton. He states that warmth is consistent with post-operative changes. He stated as long as I had low suspicion for infection pt is stable for d/c with f/ u as scheduled with Dr. Hamilton. At this time I do no feel pt has an infection, pt was discharged with primary and surgical f/u recommendation. pt is agreeable with plan, ready for discharge. Pt discharged in stable condition after discussing case with Dr. Burgos. Disposition Clinical Impression: Pain of left calf Disposition: HOME SELF-CARE Condition: Good Instructions: Knee Replacement (DC) Additional Instructions: Please use previously prescribed medication as discussed. Please follow-up with your orthopedic surgeon as scheduled. Please see primary care provider Monday. Please return to emergency room if the symptoms increase or worsen or for any other concerns, including developing fever, chills, nightsweats. Is patient prescribed a controlled substance at d/c from ED?: No Referrals: Raghavendra Hodge Jr, DO [Primary Care Provider] - 1-2 days Time of Disposition: 14:42
[2018-03-08 14:57] VITALS: BP 100/75; PULSE 97; TEMP 97.9
== END 2018-03-08 14:56 | disposition home or self-care (01) ==
LOC: EC 12:02
DX: M25.562 Pain in left knee (principal); M25.462 Effusion, left knee; M54.2 Cervicalgia; G89.29 Other chronic pain; F32.9 Major depressive disorder, single episode, unspecified; F41.9 Anxiety disorder, unspecified; Z87.891 Personal history of nicotine dependence; Z79.01 Long term (current) use of anticoagulants; Z79.899 Other long term (current) drug therapy; Z88.1 Allergy status to other antibiotic agents; Z96.652 Presence of left artificial knee joint
CPT/HCPCS: 93971; 99284; 96374; 96376; J1170

== ENCOUNTER 2018-04-09 12:14 | Emergency (ER) | payer BC ==
[2018-04-09 12:22] VITALS: BP 96/62; PULSE 91; RESP 18; TEMP 97.6
--- NOTE | 2018-04-09 13:25 | ED ---
General Adult HPI - General Chief complaint: Skin/Abscess/Foreign Body Stated complaint: Rash on lt leg Time Seen by Provider: 04/09/18 12:45 Source: patient, RN notes reviewed Mode of arrival: ambulatory Limitations: no limitations - History of Present Illness Initial comments: Patient's a 52-year-old female presented to the emergency room today with a chief complaint of a rash to the left leg. She does admit that started one week ago. Patient does admit that she had a knee replacement done approximately 6-7 weeks ago. She did see her orthopedic doctor last week also and he was not concerned with the rash. Patient states that she's not had any new contacts or soaps or laundry detergents. Denies any lotions. Patient does admit that very itchy. Patient denies any other complaints or symptoms. Patient denies any recent fever, chills, shortness of breath, chest pain, back pain, abdominal pain, nausea or vomiting, numbness or tingling, headaches or visual changes, or any other complaints. - Related Data Home Medications Medication Instructions Recorded Confirmed Cetirizine HCl [Zyrtec] 10 mg PO HS 02/03/18 03/08/18 Cyclobenzaprine [Flexeril] 5 mg PO TID 02/03/18 03/08/18 Dicyclomine [Bentyl] 10 mg PO BID PRN 02/03/18 03/08/18 Fluticasone Nasal [place] [Flonase 2 spr EA NOSTRIL DAILY 02/03/18 03/08/18 Nasal [place]] L.acidoph,Paracasei, B.lactis 1 cap PO DAILY 02/03/18 03/08/18 [Probiotic] Lidocaine 5% Patch [Lidoderm] 3 patch TOPICAL HS 02/03/18 03/08/18 Naloxegol Oxalate [Movantik] 25 mg PO DAILY 02/03/18 03/08/18 Nitrofurantoin Monohyd/M-Cryst 100 mg PO DAILY PRN 02/03/18 03/08/18 [Macrobid] Omeprazole [PriLOSEC] 20 mg PO AC-BID 02/03/18 03/08/18 Ondansetron HCl [Zofran] 8 mg PO Q4H 02/03/18 03/08/18 Tapentadol HCl [Nucynta] 100 mg PO Q6H 02/03/18 03/08/18 traZODone HCL [Desyrel] 400 mg PO HS 02/03/18 03/08/18 Apixaban [Eliquis] 2.5 mg PO DAILY 03/08/18 03/08/18 Lubiprostone [Amitiza] 24 mcg PO BID 03/08/18 03/08/18 clonazePAM [KlonoPIN] 1 mg PO BID 03/08/18 03/08/18 Previous Rx's Medication Instructions Recorded Sulfamethox-Tmp 800-160Mg [Bactrim 1 tab PO Q12HR #20 tab 04/09/18 DS 800-160 mg] hydrOXYzine HCL [Atarax] 1 - 2 tab PO QID PRN #30 tab 04/09/18 Allergies Allergy/AdvReac Type Severity Reaction Status Date / Time acetaminophen [From Percocet] Allergy Rash/Hives Verified 04/09/18 12:22 oxycodone [From Percocet] Allergy Rash/Hives Verified 04/09/18 12:22 Tetracyclines Allergy Anaphylaxis Verified 04/09/18 12:22 Review of Systems ROS Statement: Those systems with pertinent positive or pertinent negative responses have been documented in the HPI. ROS Other: All systems not noted in ROS Statement are negative. Past Medical History Past Medical History: GERD/Reflux Additional Past Medical History / Comment(s): hypotension, CHRONIC NAUSEA, chronic neck pain, migraines, pancreatitis History of Any Multi-Drug Resistant Organisms: None Reported Past Surgical History: Section, Cholecystectomy, Hysterectomy, Joint Replacement, Orthopedic Surgery Additional Past Surgical History / Comment(s): left shoulder, left knee x9, left ankle ligament sx, right leg burstula, breast cyst, hip cyst, neck surgery , greg 4 years ago Past Anesthesia/Blood Transfusion Reactions: No Reported Reaction Past Psychological History: Anxiety, Depression Smoking Status: Former smoker Past Alcohol Use History: Occasional Past Drug Use History: None Reported - Past Family History Mother Family Medical History: Cancer Additional Family Medical History / Comment(s): cervical cancer General Exam - General Exam Comments Initial Comments: General: The patient is awake and alert, in no distress, and does not appear acutely ill. Eye: There is normal conjunctiva bilaterally. No signs of icterus. Neck: The neck is supple Musculoskeletal: Normal ROM, no tenderness. Strength 5/5. Sensation intact. Pulses equal bilaterally 2+. Neurological: A&O x 3. CN II-XII intact, There are no obvious motor or sensory deficits. Coordination appears grossly intact. Speech is normal. Skin: Patient does have red raised bumps throughout the leg. Rash consistent with folliculitis. No local redness or swelling to left knee. Psychiatric: Cooperative, appropriate mood & affect, normal judgment. Limitations: no limitations Course Vital Signs 04/09/18 12:19 Temperature 97.6 F Pulse Rate 91 Respiratory 18 Rate Blood Pressure 96/62 O2 Sat by Pulse 98 Oximetry Medical Decision Making - Medical Decision Making Case discussed in detail with attending physician Dr. Zee. Patient will be started on antibiotics cover for folliculitis. Patient will be given Atarax for itching. Patient advised follow-up family doctor over the next 2 days returning if symptoms increase worsen. Disposition Clinical Impression: Folliculitis Disposition: HOME SELF-CARE Condition: Good Instructions: Folliculitis (ED) Additional Instructions: Please use medication as discussed. Please follow-up with family doctor in the next 2 days of symptoms have not improved. Please return to emergency room if the symptoms increase or worsen or for any other concerns. Prescriptions: hydrOXYzine HCL [Atarax] 1 - 2 tab PO QID PRN #30 tab PRN Reason: Itching Sulfamethox-Tmp 800-160Mg [Bactrim DS 800-160 mg] 1 tab PO Q12HR #20 tab Is patient prescribed a controlled substance at d/c from ED?: No Referrals: Raghavendra Hodge Jr, DO [Primary Care Provider] - 1-2 days Time of Disposition: 13:25
== END 2018-04-09 13:35 | disposition home or self-care (01) ==
LOC: EC 12:14
DX: L73.9 Follicular disorder, unspecified (principal); K21.9 Gastro-esophageal reflux disease without esophagitis; F41.9 Anxiety disorder, unspecified; F32.9 Major depressive disorder, single episode, unspecified; Z96.612 Presence of left artificial shoulder joint; Z96.652 Presence of left artificial knee joint; Z87.891 Personal history of nicotine dependence; Z79.891 Long term (current) use of opiate analgesic; Z79.01 Long term (current) use of anticoagulants; Z79.899 Other long term (current) drug therapy; Z88.6 Allergy status to analgesic agent; Z88.5 Allergy status to narcotic agent; Z88.1 Allergy status to other antibiotic agents
CPT/HCPCS: 99282

== ENCOUNTER → 2018-10-15 | Outpatient (CLI) | payer BC ==
[2018-10-15 16:11] LABS: Basophils % (A) 1 %; Eosinophils % (A) 1 %; HCT 40.1 % (34.0-46.0); HGB 12.8 gm/dL (11.4-16.0); Lymphocytes # (A) 1.4 k/uL (1.0-4.8); Lymphocytes % (A) 31 %; MCH 33.5 pg (25.0-35.0); MCHC 31.9 g/dL (31.0-37.0); Macrocytosis Slight; Mean Platelet Volume 6.7; Monocytes # (A) 0.4 k/uL (0-1.0); Monocytes % (A) 9 %; Neutrophils # (A) 2.5 k/uL (1.3-7.7); Neutrophils % (A) 56 %; Platelet Count 268 k/uL (150-450); RBC 3.82 m/uL (3.80-5.40); RDW 12.1 % (11.5-15.5); WBC 4.5 k/uL (3.8-10.6)
== END | disposition home or self-care (01) ==
LOC: LABWHC1 15:21
PROVIDERS: ATTEND Family Medicine
DX: D75.89 Other specified diseases of blood and blood-forming organs (principal); Z98.1 Arthrodesis status
CPT/HCPCS: 36415; 85025

== ENCOUNTER → 2018-12-05 | Outpatient (CLI) | payer BC ==
[2018-12-05 12:45] LABS: Basophils % (A) 1 %; Eosinophils % (A) 1 %; HCT 41.5 % (34.0-46.0); HGB 13.4 gm/dL (11.4-16.0); Lymphocytes # (A) 1.5 k/uL (1.0-4.8); Lymphocytes % (A) 33 %; MCH 33.5 pg (25.0-35.0); MCHC 32.3 g/dL (31.0-37.0); MCV 103.9 fL (80.0-100.0); Macrocytosis Slight; Mean Platelet Volume 7.1; Monocytes # (A) 0.3 k/uL (0-1.0); Monocytes % (A) 7 %; Neutrophils # (A) 2.6 k/uL (1.3-7.7); Neutrophils % (A) 56 %; Platelet Count 317 k/uL (150-450); RBC 3.99 m/uL (3.80-5.40); RDW 13.9 % (11.5-15.5); WBC 4.6 k/uL (3.8-10.6)
[2018-12-05 19:53] LABS: African American GFR (CKD) 97.6 (60.0-200.0); Anion Gap 11.4 mmol/L (4.00-12.00); BUN/Creat Ratio 31.25 Ratio (12.00-20.00); Calcium 9.3 mg/dL (8.7-10.3); Carbon Dioxide 22.6 mmol/L (21.6-31.8); Non-African American GFR(CKD) 84.2 (60.0-200.0); Potassium 4.9 mmol/L (3.5-5.5)
[2018-12-05 20:12] LABS: Folate, Serum >24.0 ng/mL
== END | disposition home or self-care (01) ==
LOC: LABWHC1 11:50
PROVIDERS: ATTEND Family Medicine
DX: D75.89 Other specified diseases of blood and blood-forming organs (principal); K58.1 Irritable bowel syndrome with constipation
CPT/HCPCS: 36415; 80048; 82607; 82746; 85025

== ENCOUNTER → 2019-10-29 | Outpatient (CLI) | payer BC ==
--- NOTE | 2019-10-29 14:16 | MM ---
Reason for exam: clinical finding. Last mammogram was performed 2 years and 1 month ago. History: 2 benign excisional biopsies of the left breast. Took hormonal contraceptives for 10 years beginning at age 18. Physical Findings: Nurse did not find any significant physical abnormalities on exam. MG 3D Diag Mammo W/Cad MANAS Bilateral CC and MLO view(s) were taken. Prior study comparison: October 11, 2017, bilateral MG screening mammo w CAD. December 04, 2014, bilateral MG screening mammo w CAD. The breast tissue is extremely dense which could obscure a lesion on mammography. No significant new findings when compared with previous films. These results were verbally communicated with the patient and result sheet given to the patient on 10/29/19. ASSESSMENT: Negative, BI-RAD 1 RECOMMENDATION: Routine screening mammogram of both breasts in 1 year.
== END | disposition home or self-care (01) ==
LOC: RADMAMWWP 13:10
PROVIDERS: ATTEND Obstetrics & Gynecology
DX: R92.8 Other abnormal and inconclusive findings on diagnostic imaging of breast (principal)
CPT/HCPCS: 77062; 77066

== ENCOUNTER → 2019-12-17 | Outpatient (CLI) | payer BC ==
--- NOTE | 2019-12-17 22:25 | MR ---
MRI CERVICAL SPINE: CLINICAL HISTORY: Cervicalgia and cervical radiculopathy. Headache with neck pain causing pain or wea kness into both arms for 6 years per patient. TECHNIQUE: Multiplanar, multisequence imaging of the cervical spine is performed without and with IV contrast, 7 cc of gadolinium was given intravenously. COMPARISON: Prior MRI cervical spine October 24, 2017.. FINDINGS: Sagittal images of the cervical spine show the craniocervical junction to remain within nor mal limits. The cervical and upper thoracic spinal cord remains normal in course, caliber, and signa l. Vertebral alignment is stable and satisfactory. Redemonstration of artifact from anterior fusion plate C4-C6 levels. Vertebral body heights and disc space heights are maintained above and below surg ical levels. The bone marrow signal intensity is within normal limits above and below surgical level s. No suspicious postcontrast enhancement is seen. Axial images at C2-C3 level redemonstrate mild facet degenerative change bilaterally. No significant interval change. Axial images at C3-C4 level redemonstrate tiny central disc protrusion and mild facet degenerative ch anges bilaterally. No significant interval change. Axial images at C4-C5 level redemonstrated artifact from anterior fusion plate otherwise felt within normal limits. No significant interval progression. Axial images at C5-C6 level shows some posterior spurring and uncovertebral facet degenerative change causing mild effacement anterior thecal sac and right-sided neural foraminal narrowing. No significa nt change from prior MRI. Axial images at the C6-C7 level redemonstrate central disc protrusion mildly effacing the anterior th ecal sac. Prior left paracentral component less well seen. Mild facet Facet arthropathy bilaterally. No significant change from prior. Axial images at C7-T1 level remain within normal limits. IMPRESSION: Postsurgical changes C4-C6 level with stable and satisfactory alignment. Mild multilevel degenerative changes redemonstrated as detailed above. No significant interval change or progression from 2018 MRI.
== END | disposition home or self-care (01) ==
LOC: RADMRIMAIN 15:21
PROVIDERS: ATTEND Nurse Practitioner Women's Health
DX: M47.22 Other spondylosis with radiculopathy, cervical region (principal); M50.123 Cervical disc disorder at C6-C7 level with radiculopathy
CPT/HCPCS: 72156

== ENCOUNTER 2020-02-21 07:33 | Day surgery (SDC) | payer BC ==
[2020-02-20 15:53] VITALS: BMI 28.6
[~2020-02-21 07:33] MED LIST: LACTATED RINGERS 1,000 ML IV SCH
[2020-02-21 07:58] VITALS: TEMP 98.3
[2020-02-21 08:10] LABS: Glucose,Whole Blood 101 mg/dL (75-99)
[2020-02-21] MEDS ORDERED: LIDOCAINE 1% (10MG/ML) FOR IV START INTRADERMA ONE (08:16)
[2020-02-21] MEDS ORDERED: MIDAZOLAM 2 MG/2 ML VIAL ONE (09:04)
[2020-02-21] MEDS ORDERED: PROPOFOL 10 MG/ML 20 ML VIAL IV ONE (09:04)
[2020-02-21] MEDS ORDERED: ROPIVACAINE 5MG/ML 20ML VIAL ONE (09:05)
[2020-02-21] MEDS ORDERED: IV FLUID CONTINUATION 1,000 ML IV ONE (09:42)
[2020-02-21 09:49] VITALS: RESP 16
[2020-02-21 10:13] VITALS: BP 114/77; PULSE 64
--- NOTE | 2020-02-21 10:13 | P.PCN ---
Date of Procedure: 02/21/20 Procedure(s) Performed: PREOPERATIVE DIAGNOSIS: Cervical Spondylosis with Facet Arthropathy.without myelopathy POSTOPERATIVE DIAGNOSIS: Cervical Spondylosis Facet Arthropathy. Without myelopathy PROCEDURES: Diagnostic bilateral C2 , C3, C4 medial branch blocks, with fluoroscopic guidance (fluoroscopy images available in radiology department ) ( to target the facet joint at C2-3 , C3-4 ) ANESTHESIA: Monitored anesthesia care by anesthesia department. EBL: Minimal PROCEDURE INDICATION: The patient with neck pain secondary to cervical arthropathy unresponsive to more conservative treatments. PROCEDURE DESCRIPTION / TECHNIQUE: The patient was seen and identified in the preoperative area. Risks, benefits, complications, and alternatives were discussed with the patient, the patient agreed to proceed with the procedure and signed the consent. IV was started. Vital signs remained stable throughout the procedure. Patient was taken to the OR and time out was completed. The patient was placed in the prone position on the procedure table. A pillow was placed under the patients chest to increase the cervical interlaminar space. The cervical area was prepped and draped in the usual sterile fashion. Critical pause was taken. Vital signs were closely monitored during the procedure. Conscious sedation was used during the procedure to decrease patients anxiety. Using cross-table lateral fluoroscopy, the centroid of the trapezoid of right C2 , C3, C4 , was identified, marked, and localized with 1% lidocaine 1 ml at each level for skin and Sub Q infiltrations . Subsequently, a 22 G 3 spinal needle was advanced guided by fluoroscopy to the centroid of the trapezoid of Right C2 ,C3, C4 ,. [place] tip position was confirmed at the centroid of the trapezoids of Right C2 ,C3 , C4 , with anteroposterior fluoroscopy. Subsequently, 1.5 ml of preservative-free Ropivacaine 0.5% mixed with Depo- Medrol 20 mg and half ml of the mixture was injected after negative aspiration for blood and CSF. [place] was then removed intact the same procedure was repeated at the left C2 , C3 , C4 , levels. COMPLICATIONS: No acute complications. DISPOSITION / PLANS: The patient was placed in a supine position and transferred to the recovery area in a stable condition for observation and was discharged from the recovery room after meeting discharge criteria. Home discharge instructions given to the patient by the staff. The patient was reexamined prior to discharge. The patient will schedule a follow up in the clinic in 2-4 weeks.
--- NOTE | 2020-02-21 11:53 | FL ---
Fluoroscopy HISTORY: Pain 5 seconds fluoroscopy time supplied to the referring clinician. 4 intraoperative C-arm images docume nt the procedure. See dictated report from anesthesia.
== END 2020-02-21 10:15 | disposition home or self-care (01) ==
LOC: ORPAIN 07:33
PROVIDERS: ATTEND Specialist
DX: M47.812 Spondylosis without myelopathy or radiculopathy, cervical region (principal); Z90.710 Acquired absence of both cervix and uterus; Z88.1 Allergy status to other antibiotic agents; Z88.5 Allergy status to narcotic agent
CPT/HCPCS: 64490; 64491; J2250; J2704; J2795; 99152

== ENCOUNTER → 2020-03-06 | Day surgery (SDC) | payer BC ==
[~2020-03-06] MED LIST changes: +IOPAMIDOL M200 10 ML VIAL ONE; +IV FLUID CONTINUATION 1,000 ML IV ONE; +LACTATED RINGERS 1,000 ML IV ONE; -LACTATED RINGERS 1,000 ML IV SCH; +MIDAZOLAM 2 MG/2 ML VIAL ONE; +ROPIVACAINE 5MG/ML 20ML VIAL ONE; +fentaNYL (PF) 50 MCG/ML 2 ML AMP ONE
[2020-03-06 12:36] VITALS: TEMP 97.8
--- NOTE | 2020-03-06 13:23 | P.PCN ---
Date of Procedure: 03/06/20 Description of Procedure: PREOPERATIVE DIAGNOSIS: Cervical Spondylosis with Facet Arthropathy.without myelopathy POSTOPERATIVE DIAGNOSIS: Cervical Spondylosis Facet Arthropathy. Without myelopathy PROCEDURES: Diagnostic bilateral C2 , C3, C4 medial branch blocks, with fluoroscopic guidance #2 (fluoroscopy images available in radiology department ) ( to target the facet joint at C2-3 , C3-4 ) ANESTHESIA: Monitored anesthesia care by anesthesia department. EBL: Minimal PROCEDURE INDICATION: The patient with neck pain secondary to cervical arthropathy unresponsive to more conservative treatments. PROCEDURE DESCRIPTION / TECHNIQUE: The patient was seen and identified in the preoperative area. Risks, benefits, complications, and alternatives were discussed with the patient, the patient agreed to proceed with the procedure and signed the consent. IV was started. Vital signs remained stable throughout the procedure. Patient was taken to the OR and time out was completed. The patient was placed in the prone position on the procedure table. A pillow was placed under the patients chest to increase the cervical interlaminar space. The cervical area was prepped and draped in the usual sterile fashion. Critical pause was taken. Vital signs were closely monitored during the procedure. Conscious sedation was used during the procedure to decrease patients anxiety. Using cross-table lateral fluoroscopy, the centroid of the trapezoid of right C2 , C3, C4 , was identified, marked, and localized with 1% lidocaine 1 ml at each level for skin and Sub Q infiltrations . Subsequently, a 25 G 3 spinal needle was advanced guided by fluoroscopy to the centroid of the trapezoid of Right C2 ,C3, C4 ,. [place] tip position was confirmed at the centroid of the trapezoids of Right C2 ,C3 , C4 , with anteroposterior fluoroscopy. Sub sequently, 0.5 ml of preservative-free Ropivacaine 0.5% was injected after negative aspiration for blood and CSF. [place] was then removed intact the same procedure was repeated at the left C2 , C3 , C4 , levels. COMPLICATIONS: No acute complications. DISPOSITION / PLANS: The patient was placed in a supine position and transferred to the recovery area in a stable condition for observation and was discharged from the recovery room after meeting discharge criteria. Home discharge instructions given to the patient by the staff. The patient was reexamined prior to discharge. The patient will schedule a follow up in the clinic in 2-4 weeks.
--- NOTE | 2020-03-06 13:36 | FL ---
Fluoroscopy History: NECK PAIN CERVICAL STEROID INJECTION, 6SEC FL TIME
[2020-03-06 13:41] VITALS: BP 97/64; PULSE 50; RESP 17
== END ==
LOC: ORPAIN 11:52
PROVIDERS: ATTEND Anesthesiology
DX: M47.812 Spondylosis without myelopathy or radiculopathy, cervical region (principal); K21.9 Gastro-esophageal reflux disease without esophagitis; E78.5 Hyperlipidemia, unspecified; Z79.899 Other long term (current) drug therapy; Z88.1 Allergy status to other antibiotic agents
CPT/HCPCS: 64490; 64491; J2250; J3010; Q9966; J2795

== ENCOUNTER → 2020-03-23 | Outpatient (CLI) | payer BC ==
[2020-03-23 11:17] VITALS: BP 120/78; PULSE 78; RESP 16; TEMP 97.6
--- NOTE | 2020-03-23 21:02 | P.PN ---
Subjective Progress Note Date: 03/23/20 This is allowed visits for this 54 years old female with a chronic history of severe neck pain she is diagnosed with cervical spondylosis with cervical facet arthropathy recently we did a diagnostic medial branch block cervical area the first one her pain level was 7/10 which is dropped to 1/10 after the first diagnostic medial branch block and she gets similar result after the second diagnostic medial branch block and she reported that her pain relief lasted for a few days after each injection, the patient reported that she had the no motor or sensory deficits her pain is continuous and increases with any neck movement interfering with the quality of life and activity of daily livings she denies a ny fever or night sweats. She denies any change in the bowel movement or urination Objective - Vital Signs Vital signs: Vital Signs Temp 97.6 F 03/23/20 11:02 Pulse 78 03/23/20 11:02 Resp 16 03/23/20 11:02 BP 120/78 03/23/20 11:02 Pulse Ox 97 03/23/20 11:02 - Exam Physical Examinations : -Constitutiona : Cooperative , not in acute distress . -HEENT : nech : supple , no Lymphadenopathy , normal thyroid size . : eyes : no ptosis , no icterus, no photophobia . - neurologic : Cranial nerve II to XII intact , no focal neurological deffecit . -psychatric : alert , oriented X 3 , appropriate affect , intact judgment and insight . -Lymphatic : no Lymphadenopathy . - musculoskeltal : Cervical Spine motor stregnth in the deltoid and biceps, normal right side , normal Left side motor stregnth biceps and the wrist extensors normal right side ,normal left side . motor stregnth in the triceps muscle . normal Right side , normal Left side deep tendon reflexes normal at the biceps , normal at Brachioradialis , normal at triceps. cervical facet loading test= Positive Bilaterally Spurling test= positive bilaterally. Neck distraction test= positive bilaterally. Zander sign= positive bilaterally. Multiple trigger point identified in the cervical paraspinal muscles the rhomboid muscles and trapezius muscles Lumber spine moter stegnth lower extremities ,thigh and legs 5/5 Right side , 5/5 Left side Assessment and Plan Plan: Assessment and plan=1-cervical spondylosis with cervical facet arthropathy without myelopathy. 2-myofascial pain syndrome and cervical paraspinal muscles and trapezius muscles and rhomboid muscles Patient gets excellent pain relief after diagnostic medial branch block cervical area C2 ,C3 and C4, She will be good candidate to have RFA of the medial branch cervical area at C2 , C3, C4 bilaterally Also patient could benefit from trigger point injection at the cervical paraspinal muscles and trapezius and rhomboid muscles - PQRS measures = - Patient's medications are documented in the chart. -Tobacco use is negative and counseling.Given. -Patient's has not received pneumococcal vaccine. -Advanced care planning discussed, patient not eligible. -Opiate contract signed. -Pain positive and follow-up visit/procedure is scheduled. -Patient's blood pressure measured [ 120/78] , and documented in the record ,and patient will follow up with the primary care. -Patient's weight was measured and body mass index [26.9 ] above the normal limits and counseling was done. and patient instructed to follow-up with the primary care physician. -Patient was not identified as an unhealthy alcohol user Time with Patient: Less than 30
== END | disposition home or self-care (01) ==
LOC: PNWHC3 10:48
PROVIDERS: ATTEND Specialist
DX: M47.812 Spondylosis without myelopathy or radiculopathy, cervical region (principal); M79.18 Myalgia, other site
CPT/HCPCS: 99211

== ENCOUNTER 2020-04-21 12:35 | Day surgery (SDC) | payer BC ==
[2020-04-14 14:35] VITALS: BMI 26.7
[2020-04-21 12:59] VITALS: TEMP 98.7
[2020-04-21] MEDS ORDERED: LIDOCAINE 1% (10MG/ML) FOR IV START INTRADERMA ONE (12:59)
[2020-04-21] MEDS ORDERED: LACTATED RINGERS 1,000 ML IV ONE (12:59)
[2020-04-21] MEDS ORDERED: ROPIVACAINE 5MG/ML 20ML VIAL ONE (13:31)
[2020-04-21] MEDS ORDERED: IV FLUID CONTINUATION 1,000 ML IV ONE (13:40)
[2020-04-21 13:42] VITALS: RESP 18
--- NOTE | 2020-04-21 13:42 | P.OP ---
Date of Procedure: 04/21/20 Preoperative Diagnosis: Cervical myofascial pain syndrome Postoperative Diagnosis: Cervical myofascial pain syndrome Procedure(s) Performed: Cervical trigger point injection 9( bilateral paraspinal, bilateral trapezius, bilateral levator scapula) Anesthesia: local Surgeon: Hermelindo Sung Estimated Blood Loss (ml): 0 IV fluids (ml): 0 Urine output (ml): 0 Pathology: none sent Condition: stable Disposition: PACU Description of Procedure: Patient had a history of myofascial pain syndrome. Patient tried conservative therapy. Came here for intervention procedure for better pain relief. Procedure description: Patient was seen and identified in the holding area risk benefits competitions alternative discussed with the patient. Patient agreed to proceed for the procedure signed the consent. Patient taken to the procedure area. Timeout was completed. 9 trigger point area was marked with a sterile marker. After ChloraPrep X2 used to clean the area. Critical pause was taken. Using 25-gauge 1-1/2 [address] half way. He entered in each market site one mL of block solution injected at each level. The block solution containing 20 0.5% preservative-free ropivacaine. Needle removed intact skin cleaned and Band-Aid applied. Patient tolerated the procedure well. Disposition: Patient discharge home after meeting the discharge criteria from the recovery. Patient scheduled to follow up with the pain clinic in 4 weeks for follow-up visit Plan - Discharge Summary Discharge Rx Participant: No New Discharge Prescriptions: No Action Lidocaine 5% Patch [Lidoderm] 3 patch TOPICAL HS Nitrofurantoin Monohyd/M-Cryst [Macrobid] 100 mg PO DAILY PRN PRN Reason: INTERCOURSE traZODone HCL [Desyrel] 300 - 400 mg PO HS ondansetron HCL [Zofran] 8 mg PO Q4H Omeprazole [PriLOSEC] 20 mg PO DAILY Cetirizine HCl [Zyrtec] 10 mg PO HS Fluticasone Nasal [place] [Flonase Nasal [place]] 2 spr EA NOSTRIL DAILY clonazePAM [KlonoPIN] 1.5 mg PO BID Hyoscyamine Sulfate [Levsin] 0.125 mg PO TID PRN PRN Reason: gi distress lamoTRIgine [LaMICtal] 25 mg PO DAILY Tegaserod Hydrogen Maleate [Zelnorm] 6 mg PO BID Linaclotide [Linzess] 145 mcg PO DIRECTED valACYclovir HCL [Valtrex] 1,000 mg PO DAILY PRN PRN Reason: Cold Sores Vitamin B Complex 1 each PO DAILY Mucinex (Unknown Dose) 1 tab PO DIRECTED PRN PRN Reason: Allergy Symptoms Diclofenac Sodium [Pennsaid] 1 spray TOPICAL DIRECTED PRN PRN Reason: knee pain Turmeric (Unknown Dose) 1 tab PO BID Pnv No.95/Ferrous Fum/Folic AC [ Multivitamin Tablet] 1 each PO DAILY Phytoestrogens 1 tab PO DIRECTED PRN PRN Reason: hot flashes Baclofen [Lioresal] 10 mg PO TID Advil Dual Action 250/125mg 2 tab PO BID Capnaltrexone 1 cap PO HS Discharge Medication List Cetirizine HCl [Zyrtec] 10 mg PO HS 02/03/18 [History] Fluticasone Nasal [place] [Flonase Nasal [place]] 2 spr EA NOSTRIL DAILY 02/03/18 [History] Lidocaine 5% Patch [Lidoderm] 3 patch TOPICAL HS 02/03/18 [History] Nitrofurantoin Monohyd/M-Cryst [Macrobid] 100 mg PO DAILY PRN 02/03/18 [History] Omeprazole [PriLOSEC] 20 mg PO DAILY 02/03/18 [History] ondansetron HCL [Zofran] 8 mg PO Q4H 02/03/18 [History] traZODone HCL [Desyrel] 300 - 400 mg PO HS 02/03/18 [History] clonazePAM [KlonoPIN] 1.5 mg PO BID 03/08/18 [History] Hyoscyamine Sulfate [Levsin] 0.125 mg PO TID PRN 02/21/20 [History] Linaclotide [Linzess] 145 mcg PO DIRECTED 02/21/20 [History] Tegaserod Hydrogen Maleate [Zelnorm] 6 mg PO BID 02/21/20 [History] lamoTRIgine [LaMICtal] 25 mg PO DAILY 02/21/20 [History] Diclofenac Sodium [Pennsaid] 1 spray TOPICAL DIRECTED PRN 03/18/20 [History] Mucinex (Unknown Dose) 1 tab PO DIRECTED PRN 03/18/20 [History] Phytoestrogens 1 tab PO DIRECTED PRN 03/18/20 [History] Pnv No.95/Ferrous Fum/Folic AC [ Multivitamin Tablet] 1 each PO DAILY 03/18/20 [History] Turmeric (Unknown Dose) 1 tab PO BID 03/18/20 [History] Vitamin B Complex 1 each PO DAILY 03/18/20 [History] valACYclovir HCL [Valtrex] 1,000 mg PO DAILY PRN 03/18/20 [History] Advil Dual Action 250/125mg 2 tab PO BID 04/14/20 [History] Baclofen [Lioresal] 10 mg PO TID 04/14/20 [History] Capnaltrexone 1 cap PO HS 04/21/20 [History] Discharge/Stand Alone Forms: Anes Pain/[place] Instructions Discharge Disposition: HOME SELF-CARE
[2020-04-21] MEDS ORDERED: fentaNYL (PF) 50 MCG/ML 2 ML AMP ONE ×2 (13:54→14:14)
[2020-04-21] MEDS ORDERED: ACETAMINOPHEN TAB 500 MG TAB ONE (14:40)
[2020-04-21 14:44] VITALS: BP 129/80; PULSE 83
== END 2020-04-21 15:10 | disposition home or self-care (01) ==
LOC: ORPAIN 12:35
DX: M79.18 Myalgia, other site (principal); Z79.899 Other long term (current) drug therapy; Z90.710 Acquired absence of both cervix and uterus; Z88.1 Allergy status to other antibiotic agents; Z88.5 Allergy status to narcotic agent
CPT/HCPCS: 20553; J3010; J2795

== ENCOUNTER → 2020-05-18 | Outpatient (CLI) | payer BC ==
[2020-05-18 13:55] VITALS: BP 124/87; PULSE 89; RESP 16; TEMP 97.3
--- NOTE | 2020-05-18 14:07 | P.PN ---
Subjective Progress Note Date: 05/18/20 This is Follow up visits for this 54 years old female with a chronic history of severe neck pain she is diagnosed with cervical spondylosis with cervical facet arthropathy recently we did a diagnostic medial branch block cervical area at C2 ,C3 ,C4 ,x2 and she had positive results and we wanted to do RFA of the medial branch and the cervical area , and her insurance not approve the RFA,, he should continue to have severe neck pain with radiation to the upper extremity, occasional numbness and tingling sensation, the upper extremity, she had the no motor or sensory deficits her pain is continuous and increases with any neck movement interfering with the quality of life and activity of daily livings she denies any fever or night sweats. She denies any change in the bowel movement or urination Objective - Vital Signs Vital signs: Vital Signs Temp 97.3 F L 05/18/20 13:51 Pulse 89 05/18/20 13:51 Resp 16 05/18/20 13:51 BP 124/87 05/18/20 13:51 Pulse Ox 98 05/18/20 13:51 Intake & Output 05/17/20 05/18/20 05/18/20 18:59 06:59 18:59 Weight 72.575 kg - Exam -Constitutiona : Cooperative , not in acute distress . -HEENT : nech : supple , no Lymphadenopathy , normal thyroid size . : eyes : no ptosis , no icterus, no photophobia . - neurologic : Cranial nerve II to XII intact , no focal neurological deffecit . -psychatric : alert , oriented X 3 , appropriate affect , intact judgment and insight . -Lymphatic : no Lymphadenopathy . - musculoskeltal : Cervical Spine motor stregnth in the deltoid and biceps, normal right side , normal Left side motor stregnth biceps and the wrist extensors normal right side ,normal left side . motor stregnth in the triceps muscle . normal Right side , normal Left side deep tendon reflexes normal at the biceps , normal at Brachioradialis , normal at triceps. cervical facet loading test= Positive Bilaterally Spurling test= positive bilaterally. Neck distraction test= positive bilaterally. Zander sign= positive bilaterally. Multiple trigger point identified in the cervical paraspinal muscles the rhomboid muscles and trapezius muscles Lumber spine moter stegnth lower extremities ,thigh and legs 5/5 Right side , 5/5 Left side Assessment and Plan Plan: Assessment and plan=1-cervical spondylosis with cervical facet arthropathy without myelopathy. 2-myofascial pain syndrome and cervical paraspinal muscles and trapezius muscles and rhomboid muscles 3-history of cervical fusion at C4 5 level Patient gets excellent pain relief after diagnostic medial branch block cervical area C2 ,C3 and C4, Insurance did not approve the RFA of the medial branch cervical area patient could benefit from cervical epidural steroid injection at C7-T1 - PQRS measures = - Patient's medications are documented in the chart. -Tobacco use is negative and counseling.Given. -Patient's has not received pneumococcal vaccine. -Advanced care planning discussed, patient not eligible. -Opiate contract not signed. -Pain positive and follow-up visit/procedure is scheduled. -Patient's blood pressure measured [ 121/87] , and documented in the record ,and patient will follow up with the primary care. -Patient's weight was measured and body mass index [27.1 ] above the normal limits and counseling was done. and patient instructed to follow-up with the primary care physician. -Patient was not identified as an unhealthy alcohol user Time with Patient: Less than 30
== END | disposition home or self-care (01) ==
LOC: PNWHC3 13:26
PROVIDERS: ATTEND Specialist
DX: M47.812 Spondylosis without myelopathy or radiculopathy, cervical region (principal); M79.81 Nontraumatic hematoma of soft tissue
CPT/HCPCS: 99211

== ENCOUNTER 2020-06-09 08:05 | Day surgery (SDC) | payer BC ==
[2020-06-04 10:28] VITALS: BMI 27.3
[2020-06-09] MEDS ORDERED: LACTATED RINGERS 1,000 ML IV SCH (08:18)
[2020-06-09] MEDS ORDERED: LIDOCAINE 1% (10MG/ML) FOR IV START INTRADERMA ONE (08:30)
[2020-06-09] MEDS ORDERED: IOPAMIDOL M200 10 ML VIAL ONE (08:43)
[2020-06-09] MEDS ORDERED: MIDAZOLAM 2 MG/2 ML VIAL ONE (08:43)
[2020-06-09] MEDS ORDERED: fentaNYL (PF) 50 MCG/ML 2 ML AMP ONE (08:43)
[2020-06-09] MEDS ORDERED: DEXAMETHASONE SOD PHOSPHATE 10 MG/ML 1 ML VIAL ONE (08:43)
[2020-06-09 08:44] VITALS: RESP 16; TEMP 97.1
--- NOTE | 2020-06-09 08:54 | P.PCN ---
Date of Procedure: 06/09/20 Procedure(s) Performed: . PROCEDURE 1. Cervical epidural steroid injection under fluoroscopic guidance, C7-T1 (fluoroscopy images available in the radiology department ) 2. Cervical epidurogram. PREOPERATIVE DIAGNOSIS: 1- Cervical Degenerative Disc Diseases 2- Cervical radiculopathy., 3-cervical spondylosis with cervical Facet arthropathy without myelopathy POSTOPERATIVE DIAGNOSIS: : 1- Cervical Degenerative Disc Diseases , 2- Cervical radiculopathy. 3-,cervical spondylosis with cervical Facet arthropathy without myelopathy ANESTHESIA: Local anesthesia with lidocaine 1 % , and moderate sedation, with Versed 2 mg ,and Fentanyl 50 mcg. EBL 0 PROCEDURE INDICATION: The patient with neck pain and radiculitis unresponsive to conservative treatment consents for procedure. PROCEDURE DESCRIPTION / TECHNIQUE: The patient was seen and identified in the preoperative area. Risks, benefits, complications, including but not limited to infections ,bleeding , allergic reactions to the medications ,and not complete pain releife, and alternatives were discussed with the patient, the patient agreed to proceed with the procedure and signed the consent. Patient was taken to the OR and time out was completed. The patient was placed in the prone position on the procedure table. A pillow wa s placed under the patients chest to increase the cervical interlaminar space. The cervical area was prepped and draped in the usual sterile fashion. Vital signs were closely monitored during the procedure. Conscious sedation was used during the procedure to decrease patients anxiety. Using anterior-posterior fluoroscopy, the C7-T1 interlaminar space was identified and the skin over this site was marked and then infiltrated with 1% lidocaine subcutaneously. Subsequently, a 20-gauge 3-1/2-inch Tuohy epidural needle was inserted and advanced toward the epidural space by means of the ``hanging-drop technique and guided by AP and lateral fluoroscopy. The correct needle position in the epidural space was verified with the injection of 2 mL of the water soluble contrast dye Isovue-200 and observing an excellent epidurogram with the epidural spread of the dye, after negative aspiration for blood and CSF and in the absence of paresthesias. Again after negative aspiration, mixture containing 20 mg Dexamethasone and 2 ml of preservative- free normal saline injected and a washout of epidurogram was seen. Needle was withdrawn intact, skin was cleansed, and bandages were applied. Complications= none. Disposition= patient was placed in supine position and transferred to the recovery room area in stable condition and there was no evidence of upper or lower extremity motor or sensory deficit after the procedure patient was discharged from recovery room after discharge criteria met and home discharge instructions was given by the staff and patient will follow with the pain clinic in 2-4 weeks
[2020-06-09 09:20] VITALS: BP 107/72; PULSE 59
[2020-06-09] MEDS ORDERED: IV FLUID CONTINUATION 1,000 ML IV ONE (09:22)
--- NOTE | 2020-06-09 11:26 | FL ---
Fluoroscopy HISTORY: Pain 3 seconds fluoroscopy time supplied to the referring clinician. 1 intraoperative C-arm images docume nt the procedure. See dictated report from anesthesia.
== END 2020-06-09 09:31 | disposition home or self-care (01) ==
LOC: ORPAIN 08:05
PROVIDERS: ATTEND Specialist
DX: M50.10 Cervical disc disorder with radiculopathy, unspecified cervical region (principal); M47.22 Other spondylosis with radiculopathy, cervical region; K92.9 Disease of digestive system, unspecified; Z88.5 Allergy status to narcotic agent; Z90.710 Acquired absence of both cervix and uterus; Z88.1 Allergy status to other antibiotic agents; Z97.4 Presence of external hearing-aid
CPT/HCPCS: 62321; J2250; J1100; J3010; Q9966

== ENCOUNTER 2020-06-25 13:24 | Day surgery (SDC) | payer BC ==
[2020-06-22 10:50] VITALS: BMI 27.1
[~2020-06-25 13:24] MED LIST changes: -IOPAMIDOL M200 10 ML VIAL ONE; -IV FLUID CONTINUATION 1,000 ML IV ONE; -LACTATED RINGERS 1,000 ML IV ONE; +LACTATED RINGERS 1,000 ML IV SCH; -MIDAZOLAM 2 MG/2 ML VIAL ONE; -ROPIVACAINE 5MG/ML 20ML VIAL ONE; -fentaNYL (PF) 50 MCG/ML 2 ML AMP ONE
[2020-06-25 13:41] VITALS: TEMP 97.4
[2020-06-25] MEDS ORDERED: IOPAMIDOL M200 10 ML VIAL ONE (14:00)
[2020-06-25] MEDS ORDERED: fentaNYL (PF) 50 MCG/ML 2 ML AMP ONE (14:00)
[2020-06-25] MEDS ORDERED: DEXAMETHASONE SOD PHOSPHATE 10 MG/ML 1 ML VIAL ONE (14:00)
[2020-06-25] MEDS ORDERED: MIDAZOLAM 2 MG/2 ML VIAL ONE (14:00)
--- NOTE | 2020-06-25 14:10 | P.PCN ---
Date of Procedure: 06/25/20 Procedure(s) Performed: PROCEDURE 1. Cervical epidural steroid injection under fluoroscopic guidance, C7-T1 (fluoroscopy images available in the radiology department ) 2. Cervical epidurogram. PREOPERATIVE DIAGNOSIS: 1- Cervical Degenerative Disc Diseases 2- Cervical radiculopathy., 3-cervical spondylosis with cervical Facet arthropathy without myelopathy POSTOPERATIVE DIAGNOSIS: : 1- Cervical Degenerative Disc Diseases , 2- Cervical radiculopathy. 3-,cervical spondylosis with cervical Facet arthropathy without myelopathy ANESTHESIA: Local anesthesia with lidocaine 1 % , and moderate sedation, with Versed 2 mg ,and Fentanyl 50 mcg. EBL 0 PROCEDURE INDICATION: The patient with neck pain and radiculitis unresponsive to conservative treatment consents for procedure. PROCEDURE DESCRIPTION / TECHNIQUE: The patient was seen and identified in the preoperative area. Risks, benefits, complications, including but not limited to infections ,bleeding , allergic reactions to the medications ,and not complete pain releife, and alternatives were discussed with the patient, the patient agreed to proceed with the procedure and signed the consent. Patient was taken to the OR and time out was completed. The patient was placed in the prone position on the procedure table. A pillow was placed under the patients chest to increase the cervical interlaminar space. The cervical area was prepped and draped in the usual sterile fashion. Vital signs were closely monitored during the procedure. Conscious sedation was used during the procedure to decrease patients anxiety. Using anterior-posterior fluoroscopy, the C7-T1 interlaminar space was identified and the skin over this site was marked and then infiltrated with 1% lidocaine subcutaneously. Subsequently, a 20-gauge 3-1/2-inch Tuohy epidural needle was inserted and advanced toward the epidural space by means of the ``hanging-drop technique and guided by AP and lateral fluoroscopy. The correct needle position in the epidural space was verified with the injection of 2 mL of the water soluble contrast dye Isovue-200 and observing an excellent epidurogram with the epidural spread of the dye, after negative aspiration for blood and CSF and in the absence of paresthesias. Again after negative aspiration, mixture containing 20 mg Dexamethasone and 2 ml of preservative- free normal saline injected and a washout of epidurogram was seen. Needle was withdrawn intact, skin was cleansed, and bandages were applied. Complications= none. Disposition= patient was placed in supine position and transferred to the recovery room area in stable condition and there was no evidence of upper or lower extremity motor or sensory deficit after the procedure patient was discharged from recovery room after discharge criteria met and home discharge instructions was given by the staff and patient will follow with the pain clinic in 2-4 weeks
[2020-06-25] MEDS ORDERED: IV FLUID CONTINUATION 750 ML IV ONE (14:15)
[2020-06-25 14:20] VITALS: RESP 20
[2020-06-25 14:44] VITALS: BP 114/72; PULSE 71
--- NOTE | 2020-06-25 16:42 | FL ---
EXAMINATION TYPE: FL guided pain mgmt statistic DATE OF EXAM: 06/25/2020 FLUOROSCOPY Fluoroscopy time of 2 seconds was used during cervical epidural steroid injection. 1 image/s documen t/s the procedure.
== END 2020-06-25 14:15 | disposition home or self-care (01) ==
LOC: ORPAIN 13:24
PROVIDERS: ATTEND Specialist
DX: M47.22 Other spondylosis with radiculopathy, cervical region (principal); M50.10 Cervical disc disorder with radiculopathy, unspecified cervical region; Z88.1 Allergy status to other antibiotic agents; Z88.5 Allergy status to narcotic agent
CPT/HCPCS: 62321; J2250; J1100; J3010; Q9966

== ENCOUNTER → 2020-07-15 | Outpatient (CLI) | payer BC ==
[2020-07-15 11:21] VITALS: BP 111/74; PULSE 85; RESP 16; TEMP 97.8
--- NOTE | 2020-07-15 11:45 | P.PN ---
Subjective Progress Note Date: 07/15/20 Hieu is a 54-year-old female who presents today for follow-up. She recently had a cervical epidural steroid injection which she reports gave her about 60% relief of her neck and shoulder pain. Unfortunately the steroids have caused her to have oral thrush. Stairs also cause significant weight gain. She has noticed that she's had these issues in the past when she's had steroid injections in her joints from orthopedic surgeons. She continues to have neck pain along both sides of her neck, the pain extends into her shoulders without any radiation into her arms. She has had radiofrequency ablation of the cervical spine in the past at [facility] which she reports offered her 8090% relief. She was able to come off opioid medications and off of steroid injections during that time. Unfortunately her insurance company has denied the request for repeat of the radiofrequency ablation despite the relief after the previous radiofrequency ablations. Review of Systems: Denies any New chest pain, short of breath, Nausea/vomitting, abdominal pain, bowel or bladder incontinence, or any overt new neurologic symptoms in his upper or lower extremities. Objective - Vital Signs Vital signs: Vital Signs Temp 97.8 F 07/15/20 11:19 Pulse 85 07/15/20 11:19 Resp 16 07/15/20 11:19 BP 111/74 07/15/20 11:19 Pulse Ox 95 07/15/20 11:19 - Exam General: Awake and alert oriented 3 no distress Respiratory exam: No audible wheezing no accessory muscle usage Cardiovascular exam: regular rate, palpable bilateral pulses, no lower extremity edema Abdominal exam: No distention nontender to palpation Cervical spine: Alignment is midline, Spurling's is negative for any radicular symptoms. Upper extremity strength is normal in the biceps, triceps, brachial radialis. 5 out of 5. Facet loading is positive bilaterally. There is limitation in the range of motion with right and left lateral sidebending. Lumbar spine: Loss of lordosis, normal alignment. Lower extremity strength is 5 out of 5. Neuro exam: Normal sensation in bilateral upper extremities, deep tendon reflexes are 2+ bilateral upper extremities. Normal sensation in bilateral lower extremities. Deep tendon reflexes are 2+ in lower extremities Psych exam: Cooperative, appropriate mood Assessment and Plan Assessment: #1 cervical spondylosis without myelopathy #2 history of opioid dependence Plan: John presented for follow-up today. Unfortunately in the past the cervical radiofrequency ablation has been the most effective procedure for her. Its offered her long-term relief of greater than 80%. Steroids have been causing her some side effects unfortunately, she has not done well with them and really wants to avoid steroids as well as opioids. She has been successful staying off opioid medications at this time. The patient has had successful radio frequency ablation within the last 2 years, she's had successful diagnostic testing as well as MRI reviews. I believe should be an excellent candidate for repeat of the cervical radiofrequency ablation of C2/3, C 3/4 bilaterally. We will attempt to get approval from the insurance and possibly do [id number] review If needed. I have spent 34 minutes on patient care today. The time was used to review the medical records including relevant urine studies and Prescription history (MAPs), review of the available imaging, evaluation and examination of the patient, coordination of care with the medical staff and if applicable referring physicians, as well as creation of the medical record. Maps were checked and appropriate, opioid start talking form is on file and updated, urine drug screens of been appropriate and have been reviewed.
== END ==
LOC: PNWHC3 11:04
PROVIDERS: ATTEND Hospitalist
DX: M47.812 Spondylosis without myelopathy or radiculopathy, cervical region (principal); F11.21 Opioid dependence, in remission; Z87.891 Personal history of nicotine dependence
CPT/HCPCS: 99211

== ENCOUNTER → 2020-10-23 | Outpatient (CLI) | payer BC | END | disposition home or self-care (01) | DX: R22.1 Localized swelling, mass and lump, neck (principal) ==

== ENCOUNTER → 2020-11-16 | Outpatient (CLI) | payer BC ==
--- NOTE | 2020-11-16 15:04 | XR ---
EXAMINATION TYPE: XR chest 2V DATE OF EXAM: 11/16/2020 COMPARISON: 01/05/2015 INDICATION: Cough, congestion TECHNIQUE: Frontal and lateral views of the chest are obtained. FINDINGS: The heart size is normal. The pulmonary vasculature is normal. The lungs are clear. Overlying the breast on the left lateral direction is a curvilinear density not identified on the fro ntal projection.This can be external to the patient. IMPRESSION: 1. No acute pulmonary process. 2. Radiopaque foreign body overlying the breast on the lateral projection of uncertain etiology.
== END | disposition home or self-care (01) ==
LOC: RADXRMAIN 12:25
PROVIDERS: ATTEND Family Medicine
DX: R09.89 Other specified symptoms and signs involving the circulatory and respiratory systems (principal)
CPT/HCPCS: 71046

== ENCOUNTER → 2020-11-16 | Outpatient (CLI) | payer BC ==
[2020-11-16 19:17] LABS: Basophils # (A) 0.04 X 10*3/uL (0.00-0.10); Basophils % (A) 0.7 %; Eosinophils # (A) 0.14 X 10*3/uL (0.04-0.35); Eosinophils % (A) 2.4 %; HCT 41.7 % (37.2-46.3); HGB 13.5 g/dL (12.0-15.0); Lymphocytes # (A) 1.38 X 10*3/uL (0.90-5.00); Lymphocytes % (A) 23.6 %; MCH 33.8 pg (27.0-32.0); MCHC 32.4 g/dL (32.0-37.0); MCV 104.3 fL (80.0-97.0); Mean Platelet Volume 10.8 fL (9.5-12.2); Monocytes % (A) 8.6 %; Neutrophils # (A) 3.76 X 10*3/uL (1.80-7.70); Neutrophils % (A) 64.4 %; Platelet Count 272 X 10*3/uL (140-440); RDW 14.5 % (11.5-14.5); WBC 5.84 X 10*3/uL (4.50-10.00)
[2020-11-16 20:15] LABS: African American GFR (CKD) 73.4 (60.0-200.0); Albumin 4.4 g/dL (3.80-4.90); Albumin/Globulin Ratio 1.69 (1.60-3.17); Anion Gap 6.3 mmol/L (4.00-12.00); Calcium 9.8 mg/dL (8.7-10.3); Carbon Dioxide 27.7 mmol/L (21.6-31.8); Chol/HDL Ratio 2.85; Globulin 2.6 g/dL (1.6-3.3); LDL Cholesterol,Calculated 105.2 mg/dL (0.0-131.0); Non-African American GFR(CKD) 63.4 (60.0-200.0); Potassium 4.7 mmol/L (3.5-5.5); Total Bilirubin 0.3 mg/dL (0.2-1.2); VLDL Calculation 38.8 mg/dL (5.00-40.00)
== END | disposition home or self-care (01) ==
LOC: LABWHC1 12:49
PROVIDERS: ATTEND Family Medicine
DX: Z00.00 Encounter for general adult medical examination without abnormal findings (principal); Z13.29 Encounter for screening for other suspected endocrine disorder; Z13.220 Encounter for screening for lipoid disorders
CPT/HCPCS: 36415; 80053; 80061; 84439; 84443; 84481; 85025; 86803

== ENCOUNTER → 2021-04-29 | Outpatient (CLI) | payer BC ==
--- NOTE | 2021-04-30 09:08 | CT ---
EXAMINATION TYPE: CT chest abdomen w con DATE OF EXAM: 04/29/2021 COMPARISON: Abdomen and pelvis 02/03/2018 HISTORY: 55-year-old female chest pain and reflux TECHNIQUE: Contiguous axial scanning of the chest and abdomen following administration of 100 ml Isov ue 300 IV contrast. Delayed images through the kidneys and coronal/sagittal reconstructions performe d. CT DLP: 830 mGycm Automated exposure control for dose reduction was used. FINDINGS: CHEST: The heart is normal size with trace anterior pericardial fluid. Aorta normal caliber with conventional branching anatomy. No thoracic lymphadenopathy by CT size criteria. No consolidation or pleural effusion. ABDOMEN: Postsurgical change around the GE junction. No hiatal hernia is identified. There is some folding or partial swirling of the fundus of the stomach likely relating to prior fundoplication. The distal eso phagus appears pulled down with the GE junction located 2.8 cm below the level of the diaphragmatic h iatus (refer to sagittal image 54 and 57). The wrap may be incomplete. The images can be reviewed by surgery. Stable 7 mm hypodensity mid liver likely small cyst. Similar mild intrahepatic biliary ductal dilatat ion and bile duct dilated up to 1.1 cm. Gallbladder surgically absent. Adrenal glands, left kidney, spleen, pancreas and no gross abnormality. A couple of subcentimeter cortical hypodensities within the right kidney measuring up to 5 mm likely multiple cortical cysts. No dilated small bowel, free fluid, or free air. Interval development of a small to moderate-sized umbilical hernia containing some omental fat and a partial of nonobstructed small bowel. No mesenteric or retroperitoneal lymphadenopathy. There is moderate mixed liquid and solid stool especially in the right hemicolon. There is some annul ar thickening and narrowing at the splenic flexure of the colon, axial image 60. No pericolonic infla mmatory change. The pelvis is not imaged. BONES: No osseous destructive process. IMPRESSION (chest and abdomen): 1. POSTSURGICAL CHANGE AROUND THE GE JUNCTION. THERE IS SOME FOLDING OR SWIRLING OF THE FUNDUS OF THE STOMACH LIKELY RELATED TO PRIOR FUNDOPLICATION. THE DISTAL ESOPHAGUS APPEARS PULLED DOWN WITH THE GE JUNCTION LOCATED 2.8 CM BELOW THE LEVEL OF THE DIAPHRAGMATIC HIATUS (SAGITTAL IMAGE 54). ALSO, THE W RAP MAY BE INCOMPLETE. THE CLINICAL SIGNIFICANCE OF THESE FINDINGS SHOULD BE ASSESSED BY THE PATIENT' S SURGEON. CONSIDER REVIEWING IMAGES 45 THROUGH 57. 2. MODERATE MIXED LIQUID AND SOLID STOOL ESPECIALLY IN THE RIGHT SIDE OF THE COLON. CORRELATE TO EXCL UDE DIARRHEAL STATE. 3. SOME ANNULAR THICKENING AND NARROWING AT THE SPLENIC FLEXURE OF THE COLON COULD REPRESENT A FOCAL SPASM. DIRECT VISUALIZATION TO EXCLUDE NEOPLASM IF ROUTINE SCREENING COLONOSCOPY IS NOT BEING PERFORM ED.
== END | disposition home or self-care (01) ==
LOC: RADCTMAIN 16:09
PROVIDERS: ATTEND Thoracic Surgery (Cardiothoracic Vascular Surgery)
DX: K63.89 Other specified diseases of intestine (principal); R19.5 Other fecal abnormalities; Z98.890 Other specified postprocedural states
CPT/HCPCS: 71260; 74160; Q9967

== ENCOUNTER → 2021-05-02 | Outpatient (CLI) | payer BC ==
--- NOTE | 2021-05-02 12:29 | MR ---
EXAMINATION TYPE: MR lumbar spine wo/w con DATE OF EXAM: 05/02/2021 COMPARISON: NONE HISTORY: Low back pain that radiates down left leg. TECHNIQUE: T1 and T2 axial and sagittal images of the lumbar spine are submitted. FINDINGS: There is no abnormal signal seen within the visualized spinal cord or paraspinal soft tissu es. At L1-2 there is no disc herniation or canal stenosis. No foraminal encroachment. At L2-3 there is no disc herniation or canal stenosis. No foraminal encroachment. Mild hypertrophic c hange of the facets and ligamentum flavum. At L3-4 there is mild to moderate degenerative disc disease with hypertrophic change of the facets an d ligamentum flavum. Mild broad-based disc bulging and effacement of thecal sac. No Canal stenosis. V odalys minimal bilateral foraminal encroachment. At L4-5 there is annular tear and broad-based central disc bulging without evidence of focal herniati on. Facet arthropathy and ligamentum flavum hypertrophy noted. No Canal stenosis. Minimal bilateral f oraminal encroachment. At L5-S1 there is degenerative disc disease with facet arthropathy but no disc herniation, canal sten osis or foraminal encroachment. No pathologic enhancement postcontrast administration. Visualized spinal cord demonstrates a normal s ignal pattern with no abnormal enhancement. Heterogeneous marrow signal is nonspecific. IMPRESSION: 1. Multilevel mild degenerative disc disease with annular tear L4-L5 but no focal herniation or canal stenosis. 2. broad-based disc bulging with hypertrophic changes L3-L4 and mild effacement of thecal sac but no focal herniation. Very minimal bilateral foraminal encroachment. 3. Nonspecific heterogeneous marrow signal. Associated marrow distribution or osteopenia. Less likely etiologies included within the differential diagnosis includes lymphoproliferative disorders correla te clinically.
== END | disposition home or self-care (01) ==
LOC: RADMRIMAIN 11:31
PROVIDERS: ATTEND Orthopaedic Surgery Orthopaedic Surgery of the Spine
DX: M51.36 Other intervertebral disc degeneration, lumbar region (principal); M51.26 Other intervertebral disc displacement, lumbar region
CPT/HCPCS: 72158; A9585

== ENCOUNTER 2021-08-17 17:10 | Inpatient (IN) | payer BC ==
[2021-08-17] MEDS ORDERED: SODIUM CHLORIDE 0.9% 1,000 ML IV STA (20:26)
[2021-08-17] MEDS ORDERED: METOCLOPRAMIDE 5 MG/ML 2 ML VIAL IVP STA (20:26)
[2021-08-17] MEDS ORDERED: fentaNYL (PF) 50 MCG/ML 2 ML AMP IVP STA ×2 (20:28→21:47)
--- NOTE | 2021-08-17 20:33 | ED ---
General Adult HPI - General Chief complaint: Abdominal Pain Stated complaint: Abdominal Pain, IBS Time Seen by Provider: 08/17/21 20:20 Source: patient, RN notes reviewed, old records reviewed Mode of arrival: ambulatory Limitations: no limitations - History of Present Illness Initial comments: This is a 55-year-old female that presents with constipation for one week. She states that she tried three saline enemas today with no results. She states her last bowel movement was 5 days ago, hard small stool. She states that she does have nausea but no vomiting. She denies any fevers. She is currently seeing Dr. Riley , a colon and rectal surgeon and has an appointment on . Patient has a history of cholecystectomy, hysterectomy and bladder surgery, fibromyalgia, GERD, irritable bowel syndrome and pancreatitis -: week(s) (1) Location: abdomen Severity scale (1-10): 8 Quality: constant Consistency: constant Improves with: none Associated Symptoms: denies other symptoms Treatments Prior to Arrival: other (saline enema x3) - Related Data Home Medications Medication Instructions Recorded Confirmed Fluticasone Nasal [place] [Flonase 1 - 2 spr EA NOSTRIL HS 02/03/18 08/17/21 Nasal [place]] Omeprazole [PriLOSEC] 20 mg PO DAILY 02/03/18 08/17/21 traZODone HCL [Desyrel] 200 mg PO HS 02/03/18 08/17/21 clonazePAM [KlonoPIN] 1 mg PO BID 03/08/18 08/17/21 Hyoscyamine Sulfate [Levsin] 0.125 mg PO Q4H PRN 02/21/20 08/17/21 Cyclobenzaprine [Flexeril] 10 mg PO BID 05/13/20 08/17/21 Ondansetron Odt [Zofran Odt] 8 mg PO AC-TID PRN 05/13/20 08/17/21 Topiramate [Topamax] 50 mg PO BID 06/22/20 08/17/21 Acyclovir 5% Oint [Zovirax Oint] 1 applic TOPICAL Q3H PRN 08/17/21 08/17/21 Azelastine 0.15% Nasal [place] 1 spray EA NOSTRIL DAILY 08/17/21 08/17/21 Botox 1 applic SQ Q90D 08/17/21 08/17/21 Chlorpheniramine Maleate 4 mg PO Q4H PRN 08/17/21 08/17/21 DULoxetine HCL [Cymbalta] 30 mg PO DAILY 08/17/21 08/17/21 Fexofenadine HCl [Candy Allergy] 180 mg PO DAILY 08/17/21 08/17/21 Ibgard 1 cap PO ACHS PRN 08/17/21 08/17/21 Naltrexone 3mg Compounded Caps 3 mg PO HS 08/17/21 08/17/21 Prochlorperazine [Compazine] 5 mg PO Q6H PRN 08/17/21 08/17/21 Simethicone [Gas-X] 125 mg PO ACHS PRN 08/17/21 08/17/21 Super B Complex 1 tab PO DAILY 08/17/21 08/17/21 Valerian Root 1200 Mg 2,400 mg PO HS 08/17/21 08/17/21 Young Living "Essential Zymes-4" 1 cap PO TID-W/MEALS 08/17/21 08/17/21 Allergies Allergy/AdvReac Type Severity Reaction Status Date / Time oxycodone [From Percocet] Allergy Itching Verified 08/17/21 22:40 pregabalin [From Lyrica] Allergy Rash/Hives Verified 08/17/21 22:40 Tetracyclines Allergy Anaphylaxis Verified 08/17/21 22:40 codeine AdvReac Nausea & Verified 08/17/21 22:40 Vomiting Review of Systems ROS Statement: Those systems with pertinent positive or pertinent negative responses have been documented in the HPI. ROS Other: All systems not noted in ROS Statement are negative. Past Medical History Past Medical History: Fibromyalgia, GERD/Reflux Additional Past Medical History / Comment(s): hypotension, CHRONIC NAUSEA, chronic neck pain, migraines, pancreatitis, frequent cold sores, environmental allergies, IBS., receives Botox injections. LOWER BACK PAIN History of Any Multi-Drug Resistant Organisms: None Reported Past Surgical History: Back Surgery, Section, Cholecystectomy, Hysterectomy, Joint Replacement, Orthopedic Surgery Additional Past Surgical History / Comment(s): left shoulder, left knee x10 & total knee.,, left ankle ligament sx, right leg burstula, breast cyst, hip cyst, cervical fusion, greg x2, pain clinic procedures, botox shots., EGD, Past Anesthesia/Blood Transfusion Reactions: No Reported Reaction Past Psychological History: Anxiety, Depression Smoking Status: Former smoker Past Alcohol Use History: Occasional Past Drug Use History: None Reported - Past Family History Mother Family Medical History: Cancer Additional Family Medical History / Comment(s): cervical cancer. General Exam Limitations: no limitations General appearance: alert, in no apparent distress Head exam: Present: atraumatic Eye exam: Absent: scleral icterus, conjunctival injection ENT exam: Present: mucous membranes moist Neck exam: Present: normal inspection, full ROM. Absent: meningismus Respiratory exam: Present: normal lung sounds bilaterally. Absent: respiratory distress, accessory muscle use Cardiovascular Exam: Present: regular rate, normal rhythm GI/Abdominal exam: Present: soft, distended, hyperactive bowel sounds. Absent: tenderness, guarding, rebound, rigid Extremities exam: Present: normal capillary refill. Absent: pedal edema Back exam: Absent: tenderness, CVA tenderness (R), CVA tenderness (L) Neurological exam: Present: alert, oriented X3, normal gait Psychiatric exam: Present: normal affect, normal mood Skin exam: Present: warm, dry, intact, normal color. Absent: cyanosis, diaphoretic, petechiae, pallor Course Vital Signs 08/17/21 08/17/21 08/17/21 17:13 20:15 22:15 Temperature 97.4 F L Pulse Rate 74 86 78 Respiratory 20 18 16 Rate Blood Pressure 117/87 108/81 123/82 O2 Sat by Pulse 98 98 98 Oximetry EKG Findings - EKG Results: EKG: sinus rhythm (Ventricular rate 76, RI interval 0.150, QRS 0.87, QTC 0.410) Medical Decision Making - Medical Decision Making X-ray shows air-fluid levels consistent with ileus or partial bowel obstruction. There is stool within the left colon and rectum. Abdomen is soft but distended. Patient was given 2 doses of fentanyl for pain relief and reglan and zofran for nausea. Patient is not vomiting at this time so NG tube was held. IV fluids were initiated. Patient was admitted to the hospital with surgical consult to Dr. Gomez as patient did not want to be seen by Dr. De La Cruz. Case discussed with Dr. Roy - Lab Data Result diagrams: 08/17/21 20:28 08/17/21 20:59 Lab Results 08/17/21 08/17/21 08/17/21 Range/Units 20:28 20:28 20:28 WBC 6.5 (3.8-10.6) k/uL RBC 4.19 (3.80-5.40) m/uL Hgb 13.8 (11.4-16.0) gm/dL Hct 43.3 (34.0-46.0) % MCV 103.5 H (80.0-100.0) fL MCH 32.9 (25.0-35.0) pg MCHC 31.8 (31.0-37.0) g/dL RDW 12.6 (11.5-15.5) % Plt Count 317 (150-450) k/uL MPV 7.3 Neutrophils % 62 % Lymphocytes % 26 % Monocytes % 6 % Eosinophils % 3 % Basophils % 2 % Neutrophils # 4.0 (1.3-7.7) k/uL Lymphocytes # 1.7 (1.0-4.8) k/uL Monocytes # 0.4 (0-1.0) k/uL Eosinophils # 0.2 (0-0.7) k/uL Basophils # 0.1 (0-0.2) k/uL Macrocytosis Slight PT 9.9 (9.0-12.0) sec INR 0.9 (<1.2) APTT 24.2 (22.0-30.0) sec Sodium (137-145) mmol/L Potassium (3.5-5.1) mmol/L Chloride (98-107) mmol/L Carbon Dioxide (22-30) mmol/L Anion Gap mmol/L BUN (7-17) mg/dL Creatinine (0.52-1.04) mg/dL Est GFR (CKD-EPI)AfAm (>60 ml/min/1.73 sqM) Est GFR (CKD-EPI)NonAf (>60 ml/min/1.73 sqM) Glucose (74-99) mg/dL Plasma Lactic Acid Luis (0.7-2.0) mmol/L Calcium (8.4-10.2) mg/dL Total Bilirubin (0.2-1.3) mg/dL AST (14-36) U/L ALT (4-34) U/L Alkaline Phosphatase (38-126) U/L Total Protein (6.3-8.2) g/dL Albumin (3.5-5.0) g/dL Amylase (30-110) U/L Lipase (23-300) U/L Urine Color Yellow Urine Appearance Cloudy H (Clear) Urine pH 7.5 (5.0-8.0) Ur Specific [place] 1.014 (1.001-1.035) Urine Protein Negative (Negative) Urine Glucose (UA) Negative (Negative) Urine Ketones Negative (Negative) Urine Blood Negative (Negative) Urine Nitrite Negative (Negative) Urine Bilirubin Negative (Negative) Urine Urobilinogen <2.0 (<2.0) mg/dL Ur Leukocyte Esterase Trace H (Negative) Urine RBC 1 (0-5) /hpf Urine WBC 6 H (0-5) /hpf Ur Squamous Epith Cells 8 H (0-4) /hpf Amorphous Sediment Rare H (None) /hpf Urine Bacteria Few H (None) /hpf Hyaline Casts 3 H (0-2) /lpf Waxy Casts 4 (0) /lpf Urine Mucus Rare H (None) /hpf 08/17/21 08/17/21 Range/Units 20:28 20:59 WBC (3.8-10.6) k/uL RBC (3.80-5.40) m/uL Hgb (11.4-16.0) gm/dL Hct (34.0-46.0) % MCV (80.0-100.0) fL MCH (25.0-35.0) pg MCHC (31.0-37.0) g/dL RDW (11.5-15.5) % Plt Count (150-450) k/uL MPV Neutrophils % % Lymphocytes % % Monocytes % % Eosinophils % % Basophils % % Neutrophils # (1.3-7.7) k/uL Lymphocytes # (1.0-4.8) k/uL Monocytes # (0-1.0) k/uL Eosinophils # (0-0.7) k/uL Basophils # (0-0.2) k/uL Macrocytosis PT (9.0-12.0) sec INR (<1.2) APTT (22.0-30.0) sec Sodium 136 L (137-145) mmol/L Potassium 4.4 (3.5-5.1) mmol/L Chloride 102 (98-107) mmol/L Carbon Dioxide 31 H (22-30) mmol/L Anion Gap 3 mmol/L BUN 24 H (7-17) mg/dL Creatinine 0.91 (0.52-1.04) mg/dL Est GFR (CKD-EPI)AfAm 82 (>60 ml/min/1.73 sqM) Est GFR (CKD-EPI)NonAf 71 (>60 ml/min/1.73 sqM) Glucose 91 (74-99) mg/dL Plasma Lactic Acid Luis 0.7 (0.7-2.0) mmol/L Calcium 9.6 (8.4-10.2) mg/dL Total Bilirubin 0.4 (0.2-1.3) mg/dL AST 36 (14-36) U/L ALT 38 H (4-34) U/L Alkaline Phosphatase 69 (38-126) U/L Total Protein 7.2 (6.3-8.2) g/dL Albumin 4.3 (3.5-5.0) g/dL Amylase 112 H (30-110) U/L Lipase 127 (23-300) U/L Urine Color Urine Appearance (Clear) Urine pH (5.0-8.0) Ur Specific [place] (1.001-1.035) Urine Protein (Negative) Urine Glucose (UA) (Negative) Urine Ketones (Negative) Urine Blood (Negative) Urine Nitrite (Negative) Urine Bilirubin (Negative) Urine Urobilinogen (<2.0) mg/dL Ur Leukocyte Esterase (Negative) Urine RBC (0-5) /hpf Urine WBC (0-5) /hpf Ur Squamous Epith Cells (0-4) /hpf Amorphous Sediment (None) /hpf Urine Bacteria (None) /hpf Hyaline Casts (0-2) /lpf Waxy Casts (0) /lpf Urine Mucus (None) /hpf Disposition Clinical Impression: Bowel obstruction Disposition: ADMITTED IP TO THIS [facility] Decision Date: 08/17/21 Decision Time: 21:24
[2021-08-17 20:40] LABS: Basophils # (A) 0.1 k/uL (0-0.2); Basophils % (A) 2 %; Eosinophils # (A) 0.2 k/uL (0-0.7); Eosinophils % (A) 3 %; HCT 43.3 % (34.0-46.0); HGB 13.8 gm/dL (11.4-16.0); Lymphocytes # (A) 1.7 k/uL (1.0-4.8); Lymphocytes % (A) 26 %; MCH 32.9 pg (25.0-35.0); MCHC 31.8 g/dL (31.0-37.0); MCV 103.5 fL (80.0-100.0); Macrocytosis Slight; Mean Platelet Volume 7.3; Monocytes # (A) 0.4 k/uL (0-1.0); Monocytes % (A) 6 %; Neutrophils % (A) 62 %; Platelet Count 317 k/uL (150-450); RBC 4.19 m/uL (3.80-5.40); RDW 12.6 % (11.5-15.5); WBC 6.5 k/uL (3.8-10.6)
--- NOTE | 2021-08-17 20:50 | XR ---
EXAMINATION TYPE: XR KUB DATE OF EXAM: 08/17/2021 8:36 PM INDICATION: Patient age:Female; 55 years old; Reason for study: abdominal pain; COMPARISON: CT abdomen 04/29/2021. TECHNIQUE: One radiographic view of the abdomen was obtained. FINDINGS: Right upper quadrant cholecystectomy clips are present. There is a moderate stool burden mo st pronounced in left colon. There are few scattered air-fluid levels present in the right abdomen. T he osseous structures are intact. No abnormal calcifications are present. Fecal material and gas are demonstrated throughout the colon and rectum. IMPRESSION: Few scattered air-fluid levels correlate for underlying ileus or partial bowel obstruction given fece s seen within the left colon and rectum.
[2021-08-17 20:51] LABS: Amorphous Sediment,Urine Rare /hpf; Appearance,Urine Cloudy (Clear); Bacteria,Urine Few /hpf; Bilirubin,Urine Negative (Negative); Blood,Urine Negative (Negative); Color,Urine Yellow; Glucose,Urine (UA) Negative (Negative); Hyaline Casts,Urine 3 /lpf (0-2); INR 0.9 (<1.2); Ketones,Urine Negative (Negative); Leukocyte Esterase,Urine Trace (Negative); Mucus,Urine Rare /hpf; Nitrite,Urine Negative (Negative); PH, Urine 7.5 (5.0-8.0); Partial Thromboplastin Time 24.2 sec (22.0-30.0); Protein,Urine Negative (Negative); Prothrombin Time 9.9 sec (9.0-12.0); RBC,Urine 1 /hpf (0-5); Specific Gravity,Urine 1.014 (1.001-1.035); Squamous Epithelial Cell,Urine 8 /hpf (0-4); Urobilinogen,Urine <2.0 mg/dL (<2.0); WBC,Urine 6 /hpf (0-5); Waxy Casts,Urine 4 /lpf (0)
[2021-08-17 21:30] LABS: Albumin 4.3 g/dL (3.5-5.0); Total Protein 7.2 g/dL (6.3-8.2)
[2021-08-17 21:31] LABS: Calcium 9.6 mg/dL (8.4-10.2); Potassium 4.4 mmol/L (3.5-5.1); Total Bilirubin 0.4 mg/dL (0.2-1.3)
[2021-08-17] MEDS ORDERED: NALOXONE 0.4 MG/ML 1 ML VIAL IV PRN (21:44)
[2021-08-17] MEDS: SODIUM CHLORIDE 0.9% 1,000 ML IV SCH (23:26)
[2021-08-18] MEDS: HYDROmorphone 1 MG/ML 1 ML SYRINGE IVP PRN ×6 (02:13→22:13)
[2021-08-18] MEDS ORDERED: valACYclovir HCL 1,000 MG TABLET PO PRN (10:20)
[2021-08-18] MEDS ORDERED: MAGNESIUM CITRATE 296 ML BOTTLE PO ONE (12:10)
--- NOTE | 2021-08-18 12:15 | P.GSCN ---
History of Present Illness Consult date: 08/18/21 History of present illness: 55-year-old female presents to the emergency department with significant abdominal pain. She states she has not had a bowel movement in 6 days. She states that her issue with constipation started approximately 2 years ago. She states she underwent a Greg fundoplication with Dr. Salmeron for which things became too tight and she was unable to tolerate oral intake. She states she had significant weight loss. She had to find a new surgeon to fix that previous operation and she found Dr. Pulido in [place]. She did have a partial wrap performed at that time. She states that she has had on and off issues since that time with bowel function. She has followed with the [facility] and is following with colorectal surgery for possibility of colon resection. She states that over the past 24 hours prior to admission she had multiple enemas without success and also tried magnesium without success. She complains of nausea but denies any emesis episodes. She states her last colonoscopy was within the last year or 2 without any significant findings. Review of Systems All systems: negative Past Medical History Past Medical History: Fibromyalgia, GERD/Reflux Additional Past Medical History / Comment(s): hypotension, CHRONIC NAUSEA, chronic neck pain, migraines, pancreatitis, frequent cold sores, environmental allergies, IBS., receives Botox injections. LOWER BACK PAIN History of Any Multi-Drug Resistant Organisms: None Reported Past Surgical History: Back Surgery, Section, Cholecystectomy, Hysterectomy, Joint Replacement, Orthopedic Surgery Additional Past Surgical History / Comment(s): left shoulder, left knee x10 & total knee.,, left ankle ligament sx, right leg burstula, breast cyst, hip cyst, cervical fusion, greg x2, pain clinic procedures, botox shots., EGD, Past Anesthesia/Blood Transfusion Reactions: No Reported Reaction Past Psychological History: Anxiety, Bipolar, Depression Smoking Status: Former smoker Past Alcohol Use History: Occasional Additional Past Alcohol Use History / Comment(s): quit smoking 10 yrs ago. Past Drug Use History: None Reported - Past Family History Mother Family Medical History: Cancer Additional Family Medical History / Comment(s): cervical cancer. Medications and Allergies Home Medications Medication Instructions Recorded Confirmed Type Fluticasone Nasal [place] [Flonase 1 - 2 spr EA NOSTRIL HS 02/03/18 08/17/21 History Nasal [place]] Omeprazole [PriLOSEC] 20 mg PO DAILY 02/03/18 08/17/21 History traZODone HCL [Desyrel] 200 mg PO HS 02/03/18 08/17/21 History clonazePAM [KlonoPIN] 1 mg PO BID 03/08/18 08/17/21 History Hyoscyamine Sulfate [Levsin] 0.125 mg PO Q4H PRN 02/21/20 08/17/21 History Cyclobenzaprine [Flexeril] 10 mg PO BID 05/13/20 08/17/21 History Ondansetron Odt [Zofran Odt] 8 mg PO AC-TID PRN 05/13/20 08/17/21 History Topiramate [Topamax] 50 mg PO BID 06/22/20 08/17/21 History Acyclovir 5% Oint [Zovirax Oint] 1 applic TOPICAL Q3H PRN 08/17/21 08/17/21 History Azelastine 0.15% Nasal [place] 1 spray EA NOSTRIL DAILY 08/17/21 08/17/21 History Botox 1 applic SQ Q90D 08/17/21 08/17/21 History Chlorpheniramine Maleate 4 mg PO Q4H PRN 08/17/21 08/17/21 History DULoxetine HCL [Cymbalta] 30 mg PO DAILY 08/17/21 08/17/21 History Fexofenadine HCl [Candy Allergy] 180 mg PO DAILY 08/17/21 08/17/21 History Ibgard 1 cap PO ACHS PRN 08/17/21 08/17/21 History Naltrexone 3mg Compounded Caps 3 mg PO HS 08/17/21 08/17/21 History Prochlorperazine [Compazine] 5 mg PO Q6H PRN 08/17/21 08/17/21 History Simethicone [Gas-X] 125 mg PO ACHS PRN 08/17/21 08/17/21 History Super B Complex 1 tab PO DAILY 08/17/21 08/17/21 History Valerian Root 1200 Mg 2,400 mg PO HS 08/17/21 08/17/21 History Young Living "Essential Zymes-4" 1 cap PO TID-W/MEALS 08/17/21 08/17/21 History Allergies Allergy/AdvReac Type Severity Reaction Status Date / Time oxycodone [From Percocet] Allergy Itching Verified 08/17/21 22:40 pregabalin [From Lyrica] Allergy Rash/Hives Verified 08/17/21 22:40 Tetracyclines Allergy Anaphylaxis Verified 08/17/21 22:40 codeine AdvReac Nausea & Verified 08/17/21 22:40 Vomiting Surgical - Exam Osteopathic Statement: *. No significant issues noted on an osteopathic structural exam other than those noted in the History and Physical/Consult. Vital Signs Temp Pulse Resp BP Pulse Ox 97.4 F L 74 20 117/87 98 08/17/21 17:13 08/17/21 17:13 08/17/21 17:13 08/17/21 17:13 08/17/21 17:13 - General well nourished, no distress - ENT no hearing loss - Neck trachea midline - Respiratory normal respiratory effort - Abdomen Soft, mild distention, no rebound, no guarding, mild generalized tenderness to palpation - Psychiatric oriented to time, oriented to person, oriented to place Results - Labs 08/17/21 20:28 08/17/21 20:59 Abnormal Lab Results - Last 24 Hours (Table) 08/17/21 08/17/21 08/17/21 Range/Units 20:28 20:28 20:59 MCV 103.5 H (80.0-100.0) fL Sodium 136 L (137-145) mmol/L Carbon Dioxide 31 H (22-30) mmol/L BUN 24 H (7-17) mg/dL ALT 38 H (4-34) U/L Amylase 112 H (30-110) U/L Urine Appearance Cloudy H (Clear) Ur Leukocyte Esterase Trace H (Negative) Urine WBC 6 H (0-5) /hpf Ur Squamous Epith Cells 8 H (0-4) /hpf Amorphous Sediment Rare H (None) /hpf Urine Bacteria Few H (None) /hpf Hyaline Casts 3 H (0-2) /lpf Urine Mucus Rare H (None) /hpf Diabetes panel 08/17/21 Range/Units 20:59 Sodium 136 L (137-145) mmol/L Potassium 4.4 (3.5-5.1) mmol/L Chloride 102 (98-107) mmol/L Carbon Dioxide 31 H (22-30) mmol/L BUN 24 H (7-17) mg/dL Creatinine 0.91 (0.52-1.04) mg/dL Glucose 91 (74-99) mg/dL Calcium 9.6 (8.4-10.2) mg/dL AST 36 (14-36) U/L ALT 38 H (4-34) U/L Alkaline Phosphatase 69 (38-126) U/L Total Protein 7.2 (6.3-8.2) g/dL Albumin 4.3 (3.5-5.0) g/dL Calcium panel 08/17/21 Range/Units 20:59 Calcium 9.6 (8.4-10.2) mg/dL Albumin 4.3 (3.5-5.0) g/dL Pituitary panel 08/17/21 Range/Units 20:59 Sodium 136 L (137-145) mmol/L Potassium 4.4 (3.5-5.1) mmol/L Chloride 102 (98-107) mmol/L Carbon Dioxide 31 H (22-30) mmol/L BUN 24 H (7-17) mg/dL Creatinine 0.91 (0.52-1.04) mg/dL Glucose 91 (74-99) mg/dL Calcium 9.6 (8.4-10.2) mg/dL Adrenal panel 08/17/21 Range/Units 20:59 Sodium 136 L (137-145) mmol/L Potassium 4.4 (3.5-5.1) mmol/L Chloride 102 (98-107) mmol/L Carbon Dioxide 31 H (22-30) mmol/L BUN 24 H (7-17) mg/dL Creatinine 0.91 (0.52-1.04) mg/dL Glucose 91 (74-99) mg/dL Calcium 9.6 (8.4-10.2) mg/dL Total Bilirubin 0.4 (0.2-1.3) mg/dL AST 36 (14-36) U/L ALT 38 H (4-34) U/L Alkaline Phosphatase 69 (38-126) U/L Total Protein 7.2 (6.3-8.2) g/dL Albumin 4.3 (3.5-5.0) g/dL Assessment and Plan Plan: 55-year-old female with finding of constipation. Abdominal x-ray was examined with finding of ileus, likely secondary to constipation. We will begin the patient on a bowel regimen including magnesium citrate, Dulcolax suppositories and senna. We will evaluate results of this regimen. If unsuccessful, we will begin the patient on a bowel prep. I did also recommend that the patient continue to follow with her colorectal services as an outpatient as she appears to be in the surgical planning stages with her colorectal surgeon.
--- NOTE | 2021-08-18 12:27 | P.HPIM ---
History of Present Illness H&P Date: 08/18/21 Chief Complaint: Abdominal pain This is a 55-year-old female with past medical history of multiple abdominal surgeries ; cholecystectomy, hysterectomy, bladder surgery , Eddy with resulting dysphagia,fibromyalgia, gastroesophageal reflux disease, hypotension, chronic nausea, chronic pain syndrome, migraines, pancreatitis, IBS, anxiety, depression, prior nicotine dependence and multiple other medical issues presented to the ER with bilateral lower quadrant abdominal pain, reporting constipation 1 week, attempted saline enemas 3 yesterday with no results. Reports prior to her constipation bowel movements had either been like a "cowpie" or extremely narrow to the diameter of her "pinky-size." Follows with a specialist, Dr. Alarcon at [facility] and has an appointment on and 08/18/2021. Denies chest pain, palpitations or shortness of breath. Maintaining O2 sats in the high 90s on room air.Afebrile, normal WBC. Hematology unremarkable with the exception of MCV 103.5. Sodium 136 ,potassium 4.4, bicarbonate 31, BUN 24, creatinine 0.91, minimally elevated ALT, 38, amylase 112. UA reported few bacteria, trace leukocytes, WBC 6, negative for nitrates, 3 hyaline casts. KUB reporting she scattered air-fluid levels chronic from underlying ileus or partial bowel suction and feces within the left colon and rectum. Denies chest pain, palpitations or shortness of breath. IV fluids initiated. General surgery consult in place, recommendations pending. Review of Systems ROS Statement: Those systems with pertinent positive or pertinent negative responses have been documented in the HPI. ROS Other: All systems not noted in ROS Statement are negative. Past Medical History Past Medical History: Fibromyalgia, GERD/Reflux Additional Past Medical History / Comment(s): hypotension, CHRONIC NAUSEA, chronic neck pain, migraines, pancreatitis, frequent cold sores, environmental allergies, IBS., receives Botox injections. LOWER BACK PAIN History of Any Multi-Drug Resistant Organisms: None Reported Past Surgical History: Back Surgery, Section, Cholecystectomy, Hysterectomy, Joint Replacement, Orthopedic Surgery Additional Past Surgical History / Comment(s): left shoulder, left knee x10 & total knee.,, left ankle ligament sx, right leg burstula, breast cyst, hip cyst, cervical fusion, greg x2, pain clinic procedures, botox shots., EGD, Past Anesthesia/Blood Transfusion Reactions: No Reported Reaction Past Psychological History: Anxiety, Bipolar, Depression Smoking Status: Former smoker Past Alcohol Use History: Occasional Additional Past Alcohol Use History / Comment(s): quit smoking 10 yrs ago. Past Drug Use History: None Reported - Past Family History Mother Family Medical History: Cancer Additional Family Medical History / Comment(s): cervical cancer. Medications and Allergies Home Medications Medication Instructions Recorded Confirmed Type Fluticasone Nasal [place] [Flonase 1 - 2 spr EA NOSTRIL HS 02/03/18 08/17/21 History Nasal [place]] Omeprazole [PriLOSEC] 20 mg PO DAILY 02/03/18 08/17/21 History traZODone HCL [Desyrel] 200 mg PO HS 02/03/18 08/17/21 History clonazePAM [KlonoPIN] 1 mg PO BID 03/08/18 08/17/21 History Hyoscyamine Sulfate [Levsin] 0.125 mg PO Q4H PRN 02/21/20 08/17/21 History Cyclobenzaprine [Flexeril] 10 mg PO BID 05/13/20 08/17/21 History Ondansetron Odt [Zofran Odt] 8 mg PO AC-TID PRN 05/13/20 08/17/21 History Topiramate [Topamax] 50 mg PO BID 06/22/20 08/17/21 History Acyclovir 5% Oint [Zovirax Oint] 1 applic TOPICAL Q3H PRN 08/17/21 08/17/21 History Azelastine 0.15% Nasal [place] 1 spray EA NOSTRIL DAILY 08/17/21 08/17/21 History Botox 1 applic SQ Q90D 08/17/21 08/17/21 History Chlorpheniramine Maleate 4 mg PO Q4H PRN 08/17/21 08/17/21 History DULoxetine HCL [Cymbalta] 30 mg PO DAILY 08/17/21 08/17/21 History Fexofenadine HCl [Candy Allergy] 180 mg PO DAILY 08/17/21 08/17/21 History Ibgard 1 cap PO ACHS PRN 08/17/21 08/17/21 History Naltrexone 3mg Compounded Caps 3 mg PO HS 08/17/21 08/17/21 History Prochlorperazine [Compazine] 5 mg PO Q6H PRN 08/17/21 08/17/21 History Simethicone [Gas-X] 125 mg PO ACHS PRN 08/17/21 08/17/21 History Super B Complex 1 tab PO DAILY 08/17/21 08/17/21 History Valerian Root 1200 Mg 2,400 mg PO HS 08/17/21 08/17/21 History Young Living "Essential Zymes-4" 1 cap PO TID-W/MEALS 08/17/21 08/17/21 History Allergies Allergy/AdvReac Type Severity Reaction Status Date / Time oxycodone [From Percocet] Allergy Itching Verified 08/17/21 22:40 pregabalin [From Lyrica] Allergy Rash/Hives Verified 08/17/21 22:40 Tetracyclines Allergy Anaphylaxis Verified 08/17/21 22:40 codeine AdvReac Nausea & Verified 08/17/21 22:40 Vomiting Physical Exam Vitals: Vital Signs Temp Pulse Pulse Resp BP BP Pulse Ox 08/18/21 04:55 97.7 F 69 16 112/77 98 08/18/21 02:00 16 08/18/21 01:54 97.6 F 63 16 121/78 99 08/17/21 22:15 78 16 123/82 98 08/17/21 20:15 86 18 108/81 98 08/17/21 17:13 97.4 F L 74 20 117/87 98 Intake and Output 08/17/21 08/18/21 08/18/21 22:59 06:59 14:59 Intake Total 0 Balance 0 Intake: Oral 0 Other: Voiding Method Toilet # Voids 2 Weight 64.864 kg 64.864 kg PHYSICAL EXAM: VITAL SIGNS: [As above] GENERAL: Sitting up in bed, no acute distress HEENT: Conjunctivae normal. eyes normal. NECK: No JVD. No thyroid enlargement. No LNs CARDIOVASCULAR: S1, S2 regular. No murmur RESPIRATION: Breath sounds diminished in the bases. No rhonchi or crackles. No bronchial breathing. ABDOMEN: Soft, distended, bilateral lower quadrant tenderness, greatest on the left. No guarding. no masses palpable. No ascites, No hepatosplenomegaly.hyperactive bowel sounds heard. LEGS: No edema. no swelling PSYCHIATRY: Alert and oriented X3, mood and affect normal. NERVOUS SYSTEM: Cranial N 2-12 grossly normal. No focal deficits. Strength and sensation grossly intact. Skin: Warm and dry, no rash Results CBC & Chem 7: 08/17/21 20:28 08/17/21 20:59 Labs: Abnormal Lab Results - Last 24 Hours (Table) 08/17/21 08/17/21 08/17/21 Range/Units 20:28 20:28 20:59 MCV 103.5 H (80.0-100.0) fL Sodium 136 L (137-145) mmol/L Carbon Dioxide 31 H (22-30) mmol/L BUN 24 H (7-17) mg/dL ALT 38 H (4-34) U/L Amylase 112 H (30-110) U/L Urine Appearance Cloudy H (Clear) Ur Leukocyte Esterase Trace H (Negative) Urine WBC 6 H (0-5) /hpf Ur Squamous Epith Cells 8 H (0-4) /hpf Amorphous Sediment Rare H (None) /hpf Urine Bacteria Few H (None) /hpf Hyaline Casts 3 H (0-2) /lpf Urine Mucus Rare H (None) /hpf Thrombosis Risk Factor Assmnt - Choose All That Apply Any of the Below Risk Factors Present?: Yes Each Factor Represents 1 point: Age 41-60 years Other Risk Factors: No Other congenital or acquired thrombophilia - If yes, enter type in comment: No Thrombosis Risk Factor Assessment Total Risk Factor Score: 1 Thrombosis Risk Factor Assessment Level: Low Risk Assessment and Plan Assessment: Abdominal pain, constipation 1 week, ileus, possible partial bowel obstruction, in a patient with history of multiple bowel surgeries, including Eddy, general surgery following. Gastroesophageal reflux disease, PPI ordered Hx of IBS Chronic pain syndrome Fibromyalgia Bipolar, anxiety depression Former nicotine dependence Plan: Continue current medication regime, monitoring and symptomatic treatment. IV fluid hydration. General surgery consult in place with recommendations pending. Soap suds enemas followed by Molasses enema. Discharge planning in progress pending . The impression and plan of care has been dictated as directed. : I performed a history and examination of this patient, discussed the same with the dictator. I agree with the dictator's note ,documented as a scribe. Any additional findings or plans will be noted.
[2021-08-18] MEDS: SENNOSIDES 8.6 MG TAB PO SCH ×2 (12:51→21:11)
[2021-08-18] MEDS: SODIUM CHLORIDE 0.9% 1,000 ML IV SCH (12:57)
[2021-08-18] MEDS: ONDANSETRON 4 MG/2 ML VIAL IVP PRN (13:01)
[2021-08-18] MEDS: PANTOPRAZOLE 40 MG/10 ML VIAL IVP SCH (13:01)
[2021-08-18] MEDS: bisacodyL 10 MG SUPP RECTAL SCH (13:01)
[2021-08-18] MEDS: AZELASTINE 137MCG/SPRAY EA NOSTRIL SCH (13:12)
[2021-08-18] MEDS: FLUTICASONE 50MCG/SPRAY NASAL 16GM EA NOSTRIL SCH (21:43)
[2021-08-19] MEDS: HYDROmorphone 1 MG/ML 1 ML SYRINGE IVP PRN ×7 (01:35→20:58)
[2021-08-19] MEDS: SODIUM CHLORIDE 0.9% 1,000 ML IV SCH ×2 (01:39→12:03)
[2021-08-19] MEDS: bisacodyL 10 MG SUPP RECTAL SCH (08:31)
[2021-08-19] MEDS: PANTOPRAZOLE 40 MG/10 ML VIAL IVP SCH (08:31)
[2021-08-19] MEDS: ONDANSETRON 4 MG/2 ML VIAL IVP PRN (08:31)
[2021-08-19] MEDS: SENNOSIDES 8.6 MG TAB PO SCH ×2 (08:31→20:57)
[2021-08-19] MEDS: AZELASTINE 137MCG/SPRAY EA NOSTRIL SCH (08:32)
--- NOTE | 2021-08-19 11:21 | P.PN ---
Subjective Progress Note Date: 08/19/21 08/18/21 This is a 55-year-old female with past medical history of multiple abdominal surgeries ; cholecystectomy, hysterectomy, bladder surgery , Eddy with resulting dysphagia,fibromyalgia, gastroesophageal reflux disease, hypotension, chronic nausea, chronic pain syndrome, migraines, pancreatitis, IBS , anxiety, depression, prior nicotine dependence and multiple other medical issues presented to the ER with bilateral lower quadrant abdominal pain, reporting constipation 1 week, attempted saline enemas 3 yesterday with no results. Reports prior to her constipation bowel movements had either been like a "cowpie" or extremely narrow to the diameter of her "pinky-size." Follows with a specialist, Dr. Alarcon at [facility] and has an appointment on and 08/18/2021. Denies chest pain, palpitations or shortness of breath. Maintaining O2 sats in the high 90s on room air.Afebrile, normal WBC. Hematology unremarkable with the exception of MCV 103.5. Sodium 136 ,potassium 4.4, bicarbonate 31, BUN 24, creatinine 0.91, minimally elevated ALT, 38, amylase 112. UA reported few bacteria, trace leukocytes, WBC 6, negative for nitrates, 3 hyaline casts. KUB reporting she scattered air-fluid levels chronic from underlying ileus or partial bowel suction and feces within the left colon and rectum. Denies chest pain, palpitations or shortness of breath. IV fluids initiated. General surgery consult in place, recommendations pending. 08/19/2021 Evaluated by surgery, radiology films reviewed and does not suspect partial bowel obstruction.Bowel regimen initiated with a mag citrate, Dulcolax suppositories, senna , soapsuds enema, molasses enema. Reports nausea with only brown water return. Patient reports her colorectal specialist will be calling in to speak with both her and her around 1300. Objective - Vital Signs Vital signs: Vital Signs Temp 97.7 F 08/19/21 05:00 Pulse 73 08/19/21 05:00 Resp 18 08/19/21 05:00 BP 103/65 08/19/21 05:00 Pulse Ox 96 08/19/21 05:00 Intake & Output 08/18/21 08/19/21 08/19/21 18:59 06:59 18:59 Intake Total 450 Balance 450 Intake: Oral 450 Other: Voiding Method Toilet # Voids 1 2 - Exam PHYSICAL EXAM: VITAL SIGNS: [As above] GENERAL: Alert and oriented 3, Sitting up in bed, nauseated HEENT: Conjunctivae normal. eyes normal. NECK: No JVD. No thyroid enlargement. No LNs CARDIOVASCULAR: S1, S2 regular. No murmur RESPIRATION: Breath sounds diminished in the bases. No rhonchi or crackles. ABDOMEN: Soft, distended, left lower quadrant tenderness. No guarding. positive bowel sounds heard. LEGS: No edema. no swelling NERVOUS SYSTEM: Cranial N 2-12 grossly normal. No focal deficits. Strength and sensation grossly intact. Skin: Warm and dry, no rash - Labs CBC & Chem 7: 08/17/21 20:28 08/17/21 20:59 Assessment and Plan Assessment: Abdominal pain, ileus secondary to constipation 1 week, ileus, no partial bowel obstruction suspected at this time as per surgery , in a patient with history of multiple bowel surgeries, including Eddy, general surgery fo llowing. Gastroesophageal reflux disease Hx of IBS Chronic pain syndrome Fibromyalgia Bipolar, anxiety depression Former nicotine dependence Plan: Continue current medication regime, monitoring and symptomatic treatment. Maintain IV fluid hydration, antiemetics. Repeat molasses enema. Further recommendations pending per general surgery. The impression and plan of care has been dictated as directed. : I performed a history and examination of this patient, discussed the same with the dictator. I agree with the dictator's note ,documented as a scribe. Any additional findings or plans will be noted.
[2021-08-19 11:37] LABS: African American GFR (CKD) >90 (>60 ml/min/1.73 sqM); Anion Gap 2 mmol/L; Blood Urea Nitrogen 9 mg/dL (7-17); Calcium 8.6 mg/dL (8.4-10.2); Carbon Dioxide 28 mmol/L (22-30); Chloride 109 mmol/L (98-107); Glucose 82 mg/dL (74-99); Non-African American GFR(CKD) 87 (>60 ml/min/1.73 sqM); Potassium 4.2 mmol/L (3.5-5.1); Sodium 139 mmol/L (137-145)
[2021-08-19 13:25] VITALS: RESP 16
--- NOTE | 2021-08-19 13:44 | P.PN ---
Subjective Progress Note Date: 08/19/21 Patient seen and examined at bedside. States that yesterday after receiving magnesium citrate, Senokot, Dulcolax suppository that she did not have a bowel movement. She states that she has had 2 enemas for much only a small amount of brown water was evacuated. She complains of abdominal pain and nausea. Objective - Vital Signs Vital signs: Vital Signs Temp 98.1 F 08/19/21 12:44 Pulse 72 08/19/21 12:44 Resp 16 08/19/21 12:44 BP 100/71 08/19/21 12:44 Pulse Ox 98 08/19/21 12:44 Intake & Output 08/18/21 08/19/21 08/19/21 18:59 06:59 18:59 Intake Total 450 Balance 450 Intake: Oral 450 Other: Voiding Method Toilet Toilet # Voids 1 2 - Constitutional General appearance: Present: cooperative - Gastrointestinal Gastrointestinal Comment(s): Soft, generalized tenderness to palpation, no rebound, no guarding - Musculoskeletal Musculoskeletal: Present: generalized weakness - Psychiatric Psychiatric: Present: A&O x's 3 - Labs CBC & Chem 7: 08/17/21 20:28 08/19/21 10:42 Labs: Abnormal Lab Results - Last 24 Hours (Table) 08/19/21 Range/Units 10:42 Chloride 109 H (98-107) mmol/L Assessment and Plan Plan: Patient did not have success with significant bowel regimen of magnesium citrate, senna, Dulcolax suppository. Patient has not had a bowel movement for over a week and is significantly uncomfortable. She has dealt with this type of constipation issue and is being followed by colorectal surgery as an outpatient. According to her family, she has been offered a possible ileostomy for lifestyle improvement. At this point, without success of the initial bowel regimen, we will try a bowel prep with GoLYTELY. This was discussed with the patient. Due to her nausea, we will closely monitor for any further nausea or vomiting episodes. We will provide the patient with Reglan as well. Further recommendations based on progress after bowel prep.
[2021-08-19] MEDS ORDERED: PEG 3350-NA SULF,BICARB,CL/KCL 4,000 ML BOTTLE PO ONE (14:00)
[2021-08-19] MEDS: METOCLOPRAMIDE 5 MG/ML 2 ML VIAL IVP SCH ×2 (14:59→18:10)
[2021-08-19] MEDS: FLUTICASONE 50MCG/SPRAY NASAL 16GM EA NOSTRIL SCH (20:57)
[2021-08-20] MEDS: HYDROmorphone 1 MG/ML 1 ML SYRINGE IVP PRN ×4 (00:17→13:25)
[2021-08-20] MEDS: METOCLOPRAMIDE 5 MG/ML 2 ML VIAL IVP SCH ×3 (00:18→12:21)
[2021-08-20] MEDS: SODIUM CHLORIDE 0.9% 1,000 ML IV SCH (00:24)
[2021-08-20] MEDS: PANTOPRAZOLE 40 MG/10 ML VIAL IVP SCH (08:08)
[2021-08-20] MEDS: bisacodyL 10 MG SUPP RECTAL SCH (08:08)
[2021-08-20] MEDS: SENNOSIDES 8.6 MG TAB PO SCH (08:08)
[2021-08-20] MEDS: AZELASTINE 137MCG/SPRAY EA NOSTRIL SCH (08:09)
[2021-08-20 09:31] LABS: Anion Gap 9.3 mmol/L (10.00-18.00); BUN/Creat Ratio 6.71 Ratio (12.00-20.00); Blood Urea Nitrogen 4.7 mg/dL (9.0-27.0); Calcium 8.9 mg/dL (8.7-10.3); Carbon Dioxide 24.7 mmol/L (20.0-27.5); Non-African American GFR(CKD) 97.5 (60.0-200.0); Potassium 4.1 mmol/L (3.5-5.5)
[2021-08-20 12:16] VITALS: BP 103/70; PULSE 97; TEMP 98
--- NOTE | 2021-08-20 16:24 | P.DS ---
Providers Date of admission: 08/17/21 21:11 Expected date of discharge: 08/20/21 Attending physician: Jatinder Dominguez Consults: 08/17/21 21:46 Consult Physician Routine Consulting Provider: Melina Gomez Consult Reason/Comments: Ileus versus bowel obstruction Do you want consulting provider notified?: Yes Primary care physician: Jatinder Dominguez Hospital Course: Final diagnoses Abdominal pain, ileus secondary to constipation 1 week, ileus, no partial bowel obstruction suspected at this time as per surgery , in a patient with history of multiple bowel surgeries, including Eddy, general surgery following. Gastroesophageal reflux disease Hx of IBS Chronic pain syndrome Fibromyalgia Bipolar, anxiety depression Former nicotine dependence Hospital course:08/18/21 This is a 55-year-old female with past medical history of multiple abdominal surgeries ; cholecystectomy, hysterectomy, bladder surgery , Eddy with resulting dysphagia,fibromyalgia, gastroesophageal reflux disease, hypotension, chronic nausea, chronic pain syndrome, migraines, pancreatitis, IBS, anxiety, depression, prior nicotine dependence and multiple other medical issues presented to the ER with bilateral lower quadrant abdominal pain, reporting constipation 1 week, attempted saline enemas 3 yesterday with no results. Reports prior to her constipation bowel movements had either been like a "cowpie" or extremely narrow to the diameter of her "pinky-size." Follows with a specialist, Dr. Alarcon at [facility] and has an appointment on and 08/18/2021. Denies chest pain, palpitations or shortness of breath. Maintaining O2 sats in the high 90s on room air.Afebrile, normal WBC. Hematology unremarkable with the exception of MCV 103.5. Sodium 136 ,potassium 4.4, bicarbonate 31, BUN 24, creatinine 0.91, minimally elevated ALT, 38, amylase 112. UA reported few bacteria, trace leukocytes, WBC 6, negative for nitrates, 3 hyaline casts. KUB reporting she scattered air-fluid levels chronic from underlying ileus or partial bowel suction and feces within the left colon and rectum. Denies chest pain, palpitations or shortness of breath. IV fluids initiated. General surgery consult in place, recommendations pending. 08/19/2021 Evaluated by surgery, radiology films reviewed and does not suspect partial bowel obstruction.Bowel regimen initiated with a mag citrate, Dulcolax suppositories, senna , soapsuds enema, molasses enema. Reports nausea with only brown water return. Patient reports her colorectal specialist will be calling in to speak with both her and her around 1300. Reports only having brown water return, left lower quadrant pain/cramping. Patient and spoke with her GI/colorectal specialist, Dr. Oviedo from [place] and requesting to be discharged so that they might be able to proceed to [place] and follow up with her doctor there. Discussed with Dr Gomez, neurosurgery, who is in agreement with the plan. Patient will be discharged home today in stable condition with instructions to proceed straight to [facility], to follow-up with her GI specialist there. Denies any chest pain, palpitations or shortness of breath. Denies any lightheadedness dizziness or focal deficits. The impression and plan of care has been dictated as directed. : I performed a history and examination of this patient, discussed the same with the dictator. I agree with the dictator's note ,documented as a scribe. Any additional findings or plans will be noted. Patient Condition at Discharge: Stable Plan - Discharge Summary Discharge Rx Participant: No New Discharge Prescriptions: New Sennosides [Senokot] 8.6 mg PO BID tab valACYclovir HCL [Valtrex] 2,000 mg PO BID PRN tablet PRN Reason: cold sores Continue traZODone HCL [Desyrel] 200 mg PO HS Omeprazole [PriLOSEC] 20 mg PO DAILY Fluticasone Nasal [place] [Flonase Nasal [place]] 1 - 2 spr EA NOSTRIL HS clonazePAM [KlonoPIN] 1 mg PO BID Hyoscyamine Sulfate [Levsin] 0.125 mg PO Q4H PRN PRN Reason: Gi Upset Ondansetron Odt [Zofran ODT] 8 mg PO AC-TID PRN PRN Reason: Nausea Cyclobenzaprine [Flexeril] 10 mg PO BID Topiramate [Topamax] 50 mg PO BID Super B Complex 1 tab PO DAILY Naltrexone 3mg Compounded Caps 3 mg PO HS Prochlorperazine [Compazine] 5 mg PO Q6H PRN PRN Reason: Pain Azelastine 0.15% Nasal [place] 1 spray EA NOSTRIL DAILY Acyclovir 5% Oint [Zovirax Oint] 1 applic TOPICAL Q3H PRN PRN Reason: COLD SORES X7 DAYS DULoxetine HCL [Cymbalta] 30 mg PO DAILY Ibgard 1 cap PO ACHS PRN PRN Reason: Gi Upset Simethicone [Gas-X] 125 mg PO ACHS PRN PRN Reason: GAS Chlorpheniramine Maleate 4 mg PO Q4H PRN PRN Reason: ITCHING/ALLERGIES Botox 1 applic SQ Q90D Valerian Root 1200 Mg 2,400 mg PO HS Fexofenadine HCl [Candy Allergy] 180 mg PO DAILY Young Living "Essential Zymes-4" 1 cap PO TID-W/MEALS Discharge Medication List Fluticasone Nasal [place] [Flonase Nasal [place]] 1 - 2 spr EA NOSTRIL HS 02/03/18 [History] Omeprazole [PriLOSEC] 20 mg PO DAILY 02/03/18 [History] traZODone HCL [Desyrel] 200 mg PO HS 02/03/18 [History] clonazePAM [KlonoPIN] 1 mg PO BID 03/08/18 [History] Hyoscyamine Sulfate [Levsin] 0.125 mg PO Q4H PRN 02/21/20 [History] Cyclobenzaprine [Flexeril] 10 mg PO BID 05/13/20 [History] Ondansetron Odt [Zofran ODT] 8 mg PO AC-TID PRN 05/13/20 [History] Topiramate [Topamax] 50 mg PO BID 06/22/20 [History] Acyclovir 5% Oint [Zovirax Oint] 1 applic TOPICAL Q3H PRN 08/17/21 [History] Azelastine 0.15% Nasal [place] 1 spray EA NOSTRIL DAILY 08/17/21 [History] Botox 1 applic SQ Q90D 08/17/21 [History] Chlorpheniramine Maleate 4 mg PO Q4H PRN 08/17/21 [History] DULoxetine HCL [Cymbalta] 30 mg PO DAILY 08/17/21 [History] Fexofenadine HCl [Candy Allergy] 180 mg PO DAILY 08/17/21 [History] Ibgard 1 cap PO ACHS PRN 08/17/21 [History] Naltrexone 3mg Compounded Caps 3 mg PO HS 08/17/21 [History] Prochlorperazine [Compazine] 5 mg PO Q6H PRN 08/17/21 [History] Simethicone [Gas-X] 125 mg PO ACHS PRN 08/17/21 [History] Super B Complex 1 tab PO DAILY 08/17/21 [History] Valerian Root 1200 Mg 2,400 mg PO HS 08/17/21 [History] Young Living "Essential Zymes-4" 1 cap PO TID-W/MEALS 08/17/21 [History] Sennosides [Senokot] 8.6 mg PO BID tab 08/19/21 [Rx] valACYclovir HCL [Valtrex] 2,000 mg PO BID PRN tablet 08/19/21 [Rx] Follow up Appointment(s)/Referral(s): Jatinder Dominguez MD [Primary Care Provider] - 08/26/21 1:30 pm Patient Instructions/Handouts: Bowel Obstruction (DC), Ileus (DC) Activity/Diet/Wound Care/Special Instructions: As discussed with Dr. Jones, patient and wish to be discharged to proceed to [facility] ER ,where Dr. Alarcon patient's GI specialist is working this weekend. Patient will be discharged and proceed directly to [facility]- to drive/ transport. General surgery, Dr. Jones agrees with plan.
== END 2021-08-20 13:47 | disposition home or self-care (01) | DRG 390 ==
LOC: EC 17:10 → 4SSUR 21:11 → 5NMEDONC 22:16
PROVIDERS: ADMIT Family Medicine; ATTEND Family Medicine
DX: K56.7 Ileus, unspecified (principal); F31.9 Bipolar disorder, unspecified; F41.9 Anxiety disorder, unspecified; G89.4 Chronic pain syndrome; M54.2 Cervicalgia; M54.50 Low back pain, unspecified; K21.9 Gastro-esophageal reflux disease without esophagitis; K58.1 Irritable bowel syndrome with constipation; M79.7 Fibromyalgia; Z79.899 Other long term (current) drug therapy; Z90.49 Acquired absence of other specified parts of digestive tract; Z90.710 Acquired absence of both cervix and uterus; Z98.890 Other specified postprocedural states; Z87.891 Personal history of nicotine dependence; Z88.3 Allergy status to other anti-infective agents; Z88.5 Allergy status to narcotic agent; Z88.8 Allergy status to other drugs, medicaments and biological substances; Z80.49 Family history of malignant neoplasm of other genital organs
CPT/HCPCS: 36415; 74018; 80048; 80053; 81001; 82150; 83605; 83690; 85025; 85610; 85730; 93005; 96361; 96374; 96375; 96376; 99285

== ENCOUNTER → 2021-10-20 | Outpatient (CLI) | payer BC | END | disposition home or self-care (01) | LOC: LABWHC1 11:41 | PROVIDERS: ATTEND Otolaryngology | DX: J30.89 Other allergic rhinitis (principal) | CPT/HCPCS: 36415 ==

== ENCOUNTER 2021-10-23 16:41 | Emergency (ER) | payer BC ==
[2021-10-23 16:53] VITALS: TEMP 98.1
[2021-10-23] MEDS ORDERED: SODIUM CHLORIDE 0.9% 1,000 ML IV STA (17:16)
[2021-10-23] MEDS ORDERED: ONDANSETRON 4 MG/2 ML VIAL IVP STA (17:22)
[2021-10-23] MEDS ORDERED: HYDROmorphone 1 MG/ML 1 ML SYRINGE IVP STA ×2 (17:22→18:42)
--- NOTE | 2021-10-23 17:26 | ED ---
Abdominal Pain HPI - General Chief Complaint: Abdominal Pain Stated Complaint: Abdominal Pain Time Seen by Provider: 10/23/21 17:07 Source: patient, RN notes reviewed Mode of arrival: ambulatory Limitations: no limitations - History of Present Illness Initial Comments: This is a pleasant 55-year-old female who presents to emergency by complaint constipation which started yesterday. Patient only able to get out a small amount of stool. Patient states that today she has not had a bowel movement, continues to have abdominal cramping with constipation, has stopped passing gas. Patient previously has had a partial small bowel obstruction with multiple previous abdominal surgeries. Patient states that she has had some nausea. Patient has a history of 2 Eddy fundoplication's. She really cannot vomit due to the surgeries. Other surgeries as listed in the chart. No headache, no fever or chills, no changes in vision or hearing, no sore throat or difficulty with speech, no neck pain, no chest pain or shortness of breath,no changes in urination or bowel movements, no numbness or tingling, no extremity pain, no skin rashes or lesions. MD Complaint: abdominal pain Onset/Timin -: days(s) Location: diffuse - Related Data Home Medications Medication Instructions Recorded Confirmed Fluticasone Nasal [place] [Flonase 2 spr EA NOSTRIL HS 02/03/18 10/23/21 Nasal [place]] traZODone HCL [Desyrel] 200 mg PO HS 02/03/18 10/23/21 clonazePAM [KlonoPIN] 1 mg PO BID 03/08/18 10/23/21 Hyoscyamine Sulfate [Levsin] 0.125 mg PO QID PRN 02/21/20 10/23/21 Topiramate [Topamax] 50 mg PO BID 06/22/20 10/23/21 Azelastine 0.15% Nasal [place] 1 spray EA NOSTRIL DAILY 08/17/21 10/23/21 Botox 1 applic SQ Q90D 08/17/21 10/23/21 Chlorpheniramine Maleate 4 mg PO Q4H PRN 08/17/21 10/23/21 [Chlor-Trimeton] DULoxetine HCL [Cymbalta] 30 mg PO DAILY 08/17/21 10/23/21 Naltrexone 3mg Compounded Caps 3 mg PO HS 08/17/21 10/23/21 Super B Complex 1 tab PO DAILY 08/17/21 10/23/21 Valerian Root 1200 Mg 2,400 mg PO HS 08/17/21 10/23/21 Amoxic-Pot Clav 875-125Mg 1 tab PO Q12HR 10/23/21 10/23/21 [Augmentin 875-125] Biotin 5 mg PO DAILY 10/23/21 10/23/21 L.acidoph,Paracasei, B.lactis 1 cap PO DAILY 10/23/21 10/23/21 [Probiotic] [place]-3 Fatty Acids [[place]-3] 1,000 mg PO DAILY 10/23/21 10/23/21 tiZANidine [Zanaflex] 4 mg PO BID 10/23/21 10/23/21 Previous Rx's Medication Instructions Recorded Dicyclomine [Bentyl] 20 mg PO QID #24 tablet 10/23/21 Allergies Allergy/AdvReac Type Severity Reaction Status Date / Time oxycodone [From Percocet] Allergy Itching Verified 10/23/21 18:18 pregabalin [From Lyrica] Allergy Rash/Hives Verified 10/23/21 18:18 Tetracyclines Allergy Anaphylaxis Verified 10/23/21 18:18 codeine AdvReac Nausea & Verified 10/23/21 18:18 Vomiting Review of Systems ROS Statement: Those systems with pertinent positive or pertinent negative responses have been documented in the HPI. ROS Other: All systems not noted in ROS Statement are negative. Past Medical History Past Medical History: Fibromyalgia, GERD/Reflux Additional Past Medical History / Comment(s): hypotension, CHRONIC NAUSEA, chronic neck pain, migraines, pancreatitis, frequent cold sores, environmental allergies, IBS., receives Botox injections. LOWER BACK PAIN History of Any Multi-Drug Resistant Organisms: None Reported Past Surgical History: Back Surgery, Section, Cholecystectomy, Hysterectomy, Joint Replacement, Orthopedic Surgery Additional Past Surgical History / Comment(s): left shoulder, left knee x10 & total knee.,, left ankle ligament sx, right leg burstula, breast cyst, hip cyst, cervical fusion, greg x2, pain clinic procedures, botox shots., EGD, Past Anesthesia/Blood Transfusion Reactions: No Reported Reaction Past Psychological History: Anxiety, Bipolar, Depression Smoking Status: Former smoker Past Alcohol Use History: Occasional Past Drug Use History: None Reported - Past Family History Mother Family Medical History: Cancer Additional Family Medical History / Comment(s): cervical cancer. General Exam - General Exam Comments Initial Comments: Nontoxic appearing female in moderate distress secondary to abdominal pain. Vital signs reviewed, appears to be adequately perfused. Limitations: no limitations General appearance: alert, in no apparent distress Head exam: Present: atraumatic, normocephalic, normal inspection Eye exam: Present: normal appearance, PERRL, EOMI. Absent: scleral icterus, conjunctival injection, periorbital swelling ENT exam: Present: normal exam, normal oropharynx, mucous membranes moist, normal external ear exam. Absent: mucous membranes dry Neck exam: Present: normal inspection, full ROM. Absent: tenderness, meningismus, lymphadenopathy Respiratory exam: Present: normal lung sounds bilaterally. Absent: respiratory distress, wheezes, rales, rhonchi, stridor, chest wall tenderness, accessory muscle use Cardiovascular Exam: Present: regular rate, normal rhythm, normal heart sounds. Absent: systolic murmur, diastolic murmur, rubs, gallop, clicks GI/Abdominal exam: Present: soft, tenderness (Generalized tenderness, more so on the left abdomen with no guarding or rebound), hypoactive bowel sounds. Absent: distended, guarding, rebound, rigid Extremities exam: Present: normal inspection, full ROM, normal capillary refill. Absent: tenderness, pedal edema, joint swelling, calf tenderness Back exam: Present: normal inspection Neurological exam: Present: alert, oriented X3, CN II-XII intact Psychiatric exam: Present: normal affect, normal mood Skin exam: Present: warm, dry, intact, normal color. Absent: rash Course Vital Signs 10/23/21 10/23/21 16:51 18:51 Temperature 98.1 F Pulse Rate 97 61 Respiratory 22 18 Rate Blood Pressure 124/81 108/67 O2 Sat by Pulse 96 99 Oximetry - Reevaluation(s) Reevaluation #1: 10/23/21 19:17 Medical record is reviewed Symptoms are improved here in the emergency department Patient is informed of results and questions answered Patient in no distress Reevaluation #2: 10/23/21 20:15 Medical record is reviewed Symptoms are improved here in the emergency department Patient is informed of results and questions answered Patient in no distress Medical Decision Making - Medical Decision Making Symptomology consistent with constipation versus early small bowel obstruction versus ileus. Given the patient's history and going to order computed tomography scan abdomen and pelvis. Patient has stopped passing gas at this point. Seems less likely to be infectious etiology or inflammatory etiology such as diverticulitis. Given the presentation unlikely to be bowel perforation. All findings discussed with the patient and her . All questions answered. Treatment plan discussed. Patient was told to return to the ER for any signs or symptoms worsen. Told to return immediately if any other problems arise. All questions answered. Treatment plan discussed. Patient in agreement Every effort has been made to ensure accuracy of this dictation. However, due to the limitations of electronic medical records and dictation devices, errors in charting still occur. Medical Assistant Secretary Dr. Santacruz - Lab Data Result diagrams: 10/23/21 17:27 10/23/21 17:27 Lab Results 10/23/21 10/23/21 10/23/21 Range/Units 17:27 17:27 17:27 WBC 5.7 (3.8-10.6) k/uL RBC 4.06 (3.80-5.40) m/uL Hgb 13.9 (11.4-16.0) gm/dL Hct 42.1 (34.0-46.0) % MCV 103.5 H (80.0-100.0) fL MCH 34.2 (25.0-35.0) pg MCHC 33.0 (31.0-37.0) g/dL RDW 12.3 (11.5-15.5) % Plt Count 268 (150-450) k/uL MPV 7.6 Neutrophils % 64 % Lymphocytes % 25 % Monocytes % 5 % Eosinophils % 3 % Basophils % 2 % Neutrophils # 3.7 (1.3-7.7) k/uL Lymphocytes # 1.4 (1.0-4.8) k/uL Monocytes # 0.3 (0-1.0) k/uL Eosinophils # 0.2 (0-0.7) k/uL Basophils # 0.1 (0-0.2) k/uL Macrocytosis Slight Sodium 139 (137-145) mmol/L Potassium 4.4 (3.5-5.1) mmol/L Chloride 106 (98-107) mmol/L Carbon Dioxide 24 (22-30) mmol/L Anion Gap 9 mmol/L BUN 17 (7-17) mg/dL Creatinine 1.02 (0.52-1.04) mg/dL Est GFR (CKD-EPI)AfAm 72 (>60 ml/min/1.73 sqM) Est GFR (CKD-EPI)NonAf 62 (>60 ml/min/1.73 sqM) Glucose 101 H (74-99) mg/dL Plasma Lactic Acid Luis 0.5 L (0.7-2.0) mmol/L Calcium 10.1 (8.4-10.2) mg/dL Total Bilirubin 0.4 (0.2-1.3) mg/dL AST 49 H (14-36) U/L ALT 42 H (4-34) U/L Alkaline Phosphatase 58 (38-126) U/L Total Protein 7.2 (6.3-8.2) g/dL Albumin 4.6 (3.5-5.0) g/dL Lipase 191 (23-300) U/L Urine Color Urine Appearance (Clear) Urine pH (5.0-8.0) Ur Specific [place] (1.001-1.035) Urine Protein (Negative) Urine Glucose (UA) (Negative) Urine Ketones (Negative) Urine Blood (Negative) Urine Nitrite (Negative) Urine Bilirubin (Negative) Urine Urobilinogen (<2.0) mg/dL Ur Leukocyte Esterase (Negative) Urine RBC (0-5) /hpf Urine WBC (0-5) /hpf Ur Squamous Epith Cells (0-4) /hpf Amorphous Sediment (None) /hpf Urine Bacteria (None) /hpf Hyaline Casts (0-2) /lpf Granular Casts (0) /lpf Urine Mucus (None) /hpf 10/23/21 Range/Units 19:13 WBC (3.8-10.6) k/uL RBC (3.80-5.40) m/uL Hgb (11.4-16.0) gm/dL Hct (34.0-46.0) % MCV (80.0-100.0) fL MCH (25.0-35.0) pg MCHC (31.0-37.0) g/dL RDW (11.5-15.5) % Plt Count (150-450) k/uL MPV Neutrophils % % Lymphocytes % % Monocytes % % Eosinophils % % Basophils % % Neutrophils # (1.3-7.7) k/uL Lymphocytes # (1.0-4.8) k/uL Monocytes # (0-1.0) k/uL Eosinophils # (0-0.7) k/uL Basophils # (0-0.2) k/uL Macrocytosis Sodium (137-145) mmol/L Potassium (3.5-5.1) mmol/L Chloride (98-107) mmol/L Carbon Dioxide (22-30) mmol/L Anion Gap mmol/L BUN (7-17) mg/dL Creatinine (0.52-1.04) mg/dL Est GFR (CKD-EPI)AfAm (>60 ml/min/1.73 sqM) Est GFR (CKD-EPI)NonAf (>60 ml/min/1.73 sqM) Glucose (74-99) mg/dL Plasma Lactic Acid Luis (0.7-2.0) mmol/L Calcium (8.4-10.2) mg/dL Total Bilirubin (0.2-1.3) mg/dL AST (14-36) U/L ALT (4-34) U/L Alkaline Phosphatase (38-126) U/L Total Protein (6.3-8.2) g/dL Albumin (3.5-5.0) g/dL Lipase (23-300) U/L Urine Color Yellow Urine Appearance Cloudy H (Clear) Urine pH 6.5 (5.0-8.0) Ur Specific [place] 1.013 (1.001-1.035) Urine Protein Negative (Negative) Urine Glucose (UA) Negative (Negative) Urine Ketones Negative (Negative) Urine Blood Negative (Negative) Urine Nitrite Negative (Negative) Urine Bilirubin Negative (Negative) Urine Urobilinogen <2.0 (<2.0) mg/dL Ur Leukocyte Esterase Small H (Negative) Urine RBC <1 (0-5) /hpf Urine WBC 3 (0-5) /hpf Ur Squamous Epith Cells 2 (0-4) /hpf Amorphous Sediment Rare H (None) /hpf Urine Bacteria Rare H (None) /hpf Hyaline Casts 7 H (0-2) /lpf Granular Casts 12 (0) /lpf Urine Mucus Rare H (None) /hpf - Radiology Data Radiology results: report reviewed, image reviewed Disposition Clinical Impression: Constipation, Abdominal cramping Disposition: HOME SELF-CARE Condition: Stable Instructions (If sedation given, give patient instructions): Constipation (ED) Additional Instructions: No headache, no fever or chills, no changes in vision or hearing, no sore throat or difficulty with speech, no neck pain, no chest pain or shortness of breath, no abdominal pain, no nausea or vomiting, no changes in urination or bowel movements, no numbness or tingling, no extremity pain, no skin rashes or lesions. Prescriptions: Dicyclomine [Bentyl] 20 mg PO QID #24 tablet Is patient prescribed a controlled substance at d/c from ED?: No Referrals: Jatinder Dominguez MD [Primary Care Provider] - 10/25/21 Time of Disposition: 20:14
[2021-10-23 17:46] LABS: Basophils # (A) 0.1 k/uL (0-0.2); Basophils % (A) 2 %; Eosinophils # (A) 0.2 k/uL (0-0.7); Eosinophils % (A) 3 %; HCT 42.1 % (34.0-46.0); HGB 13.9 gm/dL (11.4-16.0); Lymphocytes # (A) 1.4 k/uL (1.0-4.8); Lymphocytes % (A) 25 %; MCH 34.2 pg (25.0-35.0); MCV 103.5 fL (80.0-100.0); Macrocytosis Slight; Mean Platelet Volume 7.6; Monocytes # (A) 0.3 k/uL (0-1.0); Monocytes % (A) 5 %; Neutrophils # (A) 3.7 k/uL (1.3-7.7); Neutrophils % (A) 64 %; Platelet Count 268 k/uL (150-450); RBC 4.06 m/uL (3.80-5.40); RDW 12.3 % (11.5-15.5); WBC 5.7 k/uL (3.8-10.6)
[2021-10-23 17:59] LABS: Albumin 4.6 g/dL (3.5-5.0); Calcium 10.1 mg/dL (8.4-10.2); Potassium 4.4 mmol/L (3.5-5.1); Total Bilirubin 0.4 mg/dL (0.2-1.3); Total Protein 7.2 g/dL (6.3-8.2)
--- NOTE | 2021-10-23 18:44 | XR ---
EXAMINATION TYPE: XR chest 1V portable DATE OF EXAM: 10/23/2021 COMPARISON: 11/16/2020 HISTORY: Chest pain TECHNIQUE: FINDINGS: Heart and mediastinum are normal. Lungs are clear. Diaphragm is normal. Bony thorax appears normal. IMPRESSION: Normal chest. No change.
[2021-10-23 19:56] LABS: Amorphous Sediment,Urine Rare /hpf; Appearance,Urine Cloudy (Clear); Bacteria,Urine Rare /hpf; Bilirubin,Urine Negative (Negative); Blood,Urine Negative (Negative); Color,Urine Yellow; Glucose,Urine (UA) Negative (Negative); Granular Casts,Urine 12 /lpf (0); Hyaline Casts,Urine 7 /lpf (0-2); Ketones,Urine Negative (Negative); Leukocyte Esterase,Urine Small (Negative); Mucus,Urine Rare /hpf; Nitrite,Urine Negative (Negative); PH, Urine 6.5 (5.0-8.0); Protein,Urine Negative (Negative); RBC,Urine <1 /hpf (0-5); Specific Gravity,Urine 1.013 (1.001-1.035); Squamous Epithelial Cell,Urine 2 /hpf (0-4); Urobilinogen,Urine <2.0 mg/dL (<2.0); WBC,Urine 3 /hpf (0-5)
--- NOTE | 2021-10-23 19:59 | CT ---
EXAMINATION TYPE: CT abdomen pelvis wo con DATE OF EXAM: 10/23/2021 COMPARISON: 04/29/2021 HISTORY: abdominal pain and constipation. hx of IBS CT DLP: 446 mGycm Automated exposure control for dose reduction was used. Images obtained from the diaphragm to the floor the pelvis with no contrast. Lung bases are clear. No pleural effusion. Heart size is normal. No pericardial effusion. Liver spleen stomach appear intact. There is no pancreatic mass. There are clips from cholecystectomy . There is large common bile duct measures 1.5 cm. Intrahepatic bile ducts are not dilated. No retrop eritoneal adenopathy. There is no adrenal mass. Kidneys show normal size and contour. Ureters are not dilated. There is int act urinary bladder. No inguinal hernia. There is tiny amount of fluid in the pelvis.. No evidence of a pelvic mass. There is hysterectomy. Appendix appears normal. No mesenteric edema. No ascites or free air. No bowel obstruction. The lumbar vertebrae have normal a lignment. No compression fracture. The bony pelvis is intact. The hip joints are intact. Sacroiliac j oints are intact. IMPRESSION: No acute abnormality in the abdomen and pelvis. Tiny amount of fluid in the pelvis of doubtful and un certain significance. Normal appendix. No adverse change. No evidence of any significant constipation .
[2021-10-23 20:34] VITALS: BP 109/78; PULSE 65; RESP 16
== END 2021-10-23 20:34 | disposition home or self-care (01) ==
LOC: EC 16:41
DX: R10.9 Unspecified abdominal pain (principal); K59.00 Constipation, unspecified; K21.9 Gastro-esophageal reflux disease without esophagitis; M79.7 Fibromyalgia; Z88.5 Allergy status to narcotic agent; Z88.8 Allergy status to other drugs, medicaments and biological substances; Z88.1 Allergy status to other antibiotic agents; Z90.49 Acquired absence of other specified parts of digestive tract; Z87.891 Personal history of nicotine dependence; Z79.899 Other long term (current) drug therapy
CPT/HCPCS: 36415; 80053; 83605; 83690; 85025; 81001; 71045; 74176; 99284; 96374; 96375; 96376; 96361; J2405; J1170

== ENCOUNTER → 2021-11-02 | Outpatient (CLI) | payer BC ==
--- NOTE | 2021-11-02 16:57 | CT ---
EXAMINATION TYPE: CT sinus wo con CT DLP: 660.90 mGycm, Automated exposure control for dose reduction was used. DATE OF EXAM: 11/02/2021 4:30 PM COMPARISON: CT neck 10/23/2020. CLINICAL INDICATION:Female, 56 years old with history of Chronic sinusitis CONTRAST: None. TECHNIQUE: Multiple thin axial images were obtained through the paranasal sinuses without the use of IV contrast. Additional coronal and sagittal reformatted images were submitted for evaluation. FINDINGS: Frontal sinuses: Right frontal sinus is normally developed and aerated. 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 Frontal Recess: Clear Modified [place]-Mary Score: Right 0 = 0% Opacified Maxillary Sinuses: Normally developed and aerated. Mild mucosal thickening in the right maxillary sin us. Modified [place]-Mary Score: Right 1 = 1-25% Opacified, Left 0 = 0% Opacified Maxillary Infundibula(OM[facility]): Clear, bilateral Richard cells without narrowing. Modified [place] Score: Right 0 = Completely patent, Left 0 = Completely patent Ethmoid sinuses: Normally developed and aerated. Ethmoidal notch: Protected and abutting the lateral lamina. Modified [place]-Mary Score: Anterior Right 0 = 0% Opacified, Left 0 = 0% Opacified Posterior Right 0 = 0% Opacified, Left 0 = 0% Opacified Sphenoid sinuses: Normally developed and aerated. There is conchal sphenoid sinus pneumatization with out evidence of dehiscence. No dehiscence of carotid canal. No evidence of optic nerve dehiscence wi thin the sphenoid sinus. No evidence of [place] cells. Sphenoethmoidal recesses: Clear. Modified [place]-Mary Score: Right 0 = 0% Opacified, Left 0 = 0% Opacified. Nasal septum: Right nasal spurring. Nasal Turbinates: Within normal limits. No johnson bullosa. Mastoid air cells & middle ears: The air cells are clear. The middle ears are grossly unremarkable. Modified Soft tissues & Brain: Partially seen without gross abnormality. Globes are intact. Other: Cribriform plate demonstrates symmetric Keros classification type 2 cribriform plate. No evidence of bony dehiscence of skull base. Lamina papyracea is intact without evidence of remote orbital fracture or orbital prolapse into the e thmoid sinus. IMPRESSION: 1. Minimal mucosal sinus disease of the right maxillary sinus. 2. The ostiomeatal units, frontonasal and sphenoethmoidal recesses are clear.
== END | disposition home or self-care (01) ==
LOC: RADCTMAIN 15:50
PROVIDERS: ATTEND Otolaryngology
DX: J34.89 Other specified disorders of nose and nasal sinuses (principal)
CPT/HCPCS: 70486

== ENCOUNTER 2021-11-05 17:48 | Emergency (ER) | payer BC ==
[2021-11-05 18:13] VITALS: BP 104/76; PULSE 86; RESP 20; TEMP 98
[2021-11-05] MEDS ORDERED: HYDROmorphone 0.5 MG/0.5 ML SYRINGE IVP STA ×2 (19:35→21:03)
[2021-11-05] MEDS ORDERED: KETOROLAC 15 MG/ML 1 ML VIAL IVP STA (19:35)
[2021-11-05] MEDS ORDERED: ORPHENADRINE 30 MG/ML 2 ML VIAL IVP STA (19:36)
[2021-11-05] MEDS ORDERED: diazePAM 5 MG TAB PO STA (19:49)
--- NOTE | 2021-11-05 20:05 | ED ---
General Adult HPI - General Chief complaint: Neck Pain/Injury Stated complaint: Neck & back pain Time Seen by Provider: 11/05/21 18:15 Source: patient, RN notes reviewed, old records reviewed Mode of arrival: ambulatory Limitations: no limitations - History of Present Illness Initial comments: This is a 56-year-old female presents emergency Department complaining of chronic neck and lower back pain. Patient states she played golf 3 or 4 days ago and the pain since that is gotten worse in both her neck and back particularly over the last 2 days. Patient states she has occasional radiculopathy down her arms and one leg which is typical however today she is not having any of that she has mostly pain in the trapezius muscle area bilaterally. Patient states she's had a recent MRI and she's had no blunt trauma or injury to the neck or lower back. The only thing she can think of is that she went golfing recently. Patient denies any loss of sensation or function denies any urinary incontinence or retention - Related Data Home Medications Medication Instructions Recorded Confirmed Fluticasone Nasal [place] [Flonase 2 spr EA NOSTRIL HS 02/03/18 10/23/21 Nasal [place]] traZODone HCL [Desyrel] 200 mg PO HS 02/03/18 10/23/21 clonazePAM [KlonoPIN] 1 mg PO BID 03/08/18 10/23/21 Hyoscyamine Sulfate [Levsin] 0.125 mg PO QID PRN 02/21/20 10/23/21 Topiramate [Topamax] 50 mg PO BID 06/22/20 10/23/21 Azelastine 0.15% Nasal [place] 1 spray EA NOSTRIL DAILY 08/17/21 10/23/21 Botox 1 applic SQ Q90D 08/17/21 10/23/21 Chlorpheniramine Maleate 4 mg PO Q4H PRN 08/17/21 10/23/21 [Chlor-Trimeton] DULoxetine HCL [Cymbalta] 30 mg PO DAILY 08/17/21 10/23/21 Naltrexone 3mg Compounded Caps 3 mg PO HS 08/17/21 10/23/21 Super B Complex 1 tab PO DAILY 08/17/21 10/23/21 Valerian Root 1200 Mg 2,400 mg PO HS 08/17/21 10/23/21 Amoxic-Pot Clav 875-125Mg 1 tab PO Q12HR 10/23/21 10/23/21 [Augmentin 875-125] Biotin 5 mg PO DAILY 10/23/21 10/23/21 L.acidoph,Paracasei, B.lactis 1 cap PO DAILY 10/23/21 10/23/21 [Probiotic] [place]-3 Fatty Acids [[place]-3] 1,000 mg PO DAILY 10/23/21 10/23/21 tiZANidine [Zanaflex] 4 mg PO BID 10/23/21 10/23/21 Previous Rx's Medication Instructions Recorded Dicyclomine [Bentyl] 20 mg PO QID #24 tablet 10/23/21 Allergies Allergy/AdvReac Type Severity Reaction Status Date / Time oxycodone [From Percocet] Allergy Itching Verified 11/05/21 18:13 pregabalin [From Lyrica] Allergy Rash/Hives Verified 11/05/21 18:13 Tetracyclines Allergy Anaphylaxis Verified 11/05/21 18:13 codeine AdvReac Nausea & Verified 11/05/21 18:13 Vomiting Review of Systems ROS Statement: Those systems with pertinent positive or pertinent negative responses have been documented in the HPI. ROS Other: All systems not noted in ROS Statement are negative. Past Medical History Past Medical History: Fibromyalgia, GERD/Reflux Additional Past Medical History / Comment(s): hypotension, CHRONIC NAUSEA, chronic neck pain, migraines, pancreatitis, frequent cold sores, environmental allergies, IBS., receives Botox injections. LOWER BACK PAIN History of Any Multi-Drug Resistant Organisms: None Reported Past Surgical History: Back Surgery, Section, Cholecystectomy, Hysterectomy, Joint Replacement, Orthopedic Surgery Additional Past Surgical History / Comment(s): left shoulder, left knee x10 & total knee.,, left ankle ligament sx, right leg burstula, breast cyst, hip cyst, cervical fusion, greg x2, pain clinic procedures, botox shots., EGD, Past Anesthesia/Blood Transfusion Reactions: No Reported Reaction Past Psychological History: Anxiety, Bipolar, Depression Smoking Status: Former smoker Past Alcohol Use History: Occasional Past Drug Use History: None Reported - Past Family History Mother Family Medical History: Cancer Additional Family Medical History / Comment(s): cervical cancer. General Exam - General Exam Comments Initial Comments: GENERAL: Patient is well-developed and well-nourished. Patient is nontoxic and well- hydrated and is in moderate distress. ENT: Neck is soft and supple. No significant lymphadenopathy is noted. Oropharynx is clear. Moist mucous membranes. Neck has full range of motion without eliciting any pain. EYES: The sclera were anicteric and conjunctiva were pink and moist. Extraocular movements were intact and pupils were equal round and reactive to light. Eyelids were unremarkable. SKIN: Skin is clear with no lesions or rashes and otherwise unremarkable. NEUROLOGIC: Patient is alert and oriented x3. Cranial nerves II through XII are grossly intact. Motor and sensory are also intact. Normal speech, volume and content. Symmetrical smile. MUSCULOSKELETAL: Normal extremities with adequate strength and full range of motion. Patient has tenderness bilateral trapezius muscles. LYMPHATICS: No significant lymphadenopathy is noted PSYCHIATRIC: Normal psychiatric evaluation. Limitations: no limitations Course Vital Signs 11/05/21 18:11 Temperature 98 F Pulse Rate 86 Respiratory 20 Rate Blood Pressure 104/76 O2 Sat by Pulse 97 Oximetry Medical Decision Making - Medical Decision Making Patient received Valium and Toradol and 0.5 of Dilaudid in the emergency department. I went back and reevaluated the patient she was feeling little bit better but still continued to have some pain. Patient got a shot of 0.5 of Dilaudid and we discharged home to follow-up with primary medical care doctor Disposition Clinical Impression: Chronic neck pain, Chronic lower back pain Disposition: HOME SELF-CARE Condition: Good Instructions (If sedation given, give patient instructions): Chronic Neck Pain (DC), Chronic Back Pain (DC) Is patient prescribed a controlled substance at d/c from ED?: No Referrals: Jatinder Dominguez MD [Primary Care Provider] - 1-2 days Time of Disposition: 21:04
== END 2021-11-05 22:19 | disposition home or self-care (01) ==
LOC: EC 17:48
DX: M54.2 Cervicalgia (principal); M54.50 Low back pain, unspecified; G89.4 Chronic pain syndrome; K21.9 Gastro-esophageal reflux disease without esophagitis; F41.9 Anxiety disorder, unspecified; F31.9 Bipolar disorder, unspecified; Z87.891 Personal history of nicotine dependence; Z88.5 Allergy status to narcotic agent; Z88.8 Allergy status to other drugs, medicaments and biological substances; Z88.1 Allergy status to other antibiotic agents; Z79.899 Other long term (current) drug therapy
CPT/HCPCS: 99283; 96374; 96375 ×2; 96376; J2360; J1885; J1170

== ENCOUNTER → 2022-02-24 | Outpatient (CLI) | payer BC ==
[2022-02-24 18:20] LABS: HCT 40.3 % (37.2-46.3); HGB 13.1 g/dL (12.0-15.0); MCH 34.2 pg (27.0-32.0); MCHC 32.5 g/dL (32.0-37.0); MCV 105.2 fL (80.0-97.0); Mean Platelet Volume 10.1 fL (9.5-12.2); NRBC Per 100 WBC 0 /100 WBCS (0.0-0.0); Platelet Count 284 X 10*3/uL (140-440); RBC 3.83 X 10*6/uL (4.10-5.20); RDW 13.1 % (11.5-14.5); WBC 3.28 X 10*3/uL (4.50-10.00)
[2022-02-24 18:46] LABS: Chol/HDL Ratio 2.65 Ratio; LDL Cholesterol,Calculated 104.7 mg/dL (0.0-131.0)
[2022-02-24 18:48] LABS: Basophils # (A) 0.03 X 10*3/uL (0.00-0.10); Basophils % (A) 0.9 %; Eosinophils # (A) 0.11 X 10*3/uL (0.04-0.35); Eosinophils % (A) 3.4 %; Immature Grans, Automated 0.3 %; Lymphocytes % (A) 39.6 %; Monocytes # (A) 0.33 X 10*3/uL (0.20-1.00); Monocytes % (A) 10.1 %; Neutrophils % (A) 45.7 %
[2022-02-24 18:49] LABS: RBC Morphology NORMAL
[2022-02-24 19:22] LABS: Vitamin B12 >3600.0 pg/mL (200.0-944.0)
[2022-02-24 20:12] LABS: ALT 29 U/L (8-44); AST 26 U/L (13-35); African American GFR (CKD) 87.9 (60.0-200.0); Albumin 4.5 g/dL (3.8-4.9); Albumin/Globulin Ratio 1.89 (1.60-3.17); Alkaline Phosphatase 51 U/L (41-126); Blood Urea Nitrogen 18.6 mg/dL (9.0-27.0); Calcium 9.5 mg/dL (8.7-10.3); Carbon Dioxide 27.5 mmol/L (20.0-27.5); Chloride 108 mmol/L (96-109); Globulin 2.4 g/dL (1.6-3.3); Glucose 103 mg/dL (70-110); Non-African American GFR(CKD) 75.8 (60.0-200.0); Potassium 4.7 mmol/L (3.5-5.5); Sodium 144 mmol/L (135-145); Total Bilirubin <0.15 mg/dL (0.30-1.20); Total Protein 6.8 g/dL (6.2-8.2)
[2022-02-24 22:27] LABS: Gliadin AB IgG, Deaminated NEGATIVE (NEGATIVE); Gliadin AB IgG, Unit <0.4 U/mL
[2022-02-25 04:29] LABS: Gliadin AB IgA, Deaminated NEGATIVE (NEGATIVE); Gliadin AB IgA, Unit <0.2 U/mL
== END | disposition home or self-care (01) ==
LOC: LABWHC1 09:45
PROVIDERS: ATTEND Internal Medicine Gastroenterology
DX: Z00.00 Encounter for general adult medical examination without abnormal findings (principal); Z12.31 Encounter for screening mammogram for malignant neoplasm of breast; Z13.29 Encounter for screening for other suspected endocrine disorder; Z13.220 Encounter for screening for lipoid disorders; F31.9 Bipolar disorder, unspecified; M79.7 Fibromyalgia; D75.89 Other specified diseases of blood and blood-forming organs
CPT/HCPCS: 36415; 80053; 80061; 82607; 82746; 83516; 84443; 85025

== ENCOUNTER → 2022-04-21 | Outpatient (CLI) | payer BC ==
--- NOTE | 2022-04-21 16:25 | BD ---
EXAMINATION TYPE: Axial Bone Density DATE OF EXAM: 04/21/2022 COMPARISON: BASELINE CLINICAL HISTORY: 56 years year old Female. ICD-10 CODE: Z78.0 POST MENOPAUSAL WITHOUT HRT Height: 64.25" Weight: 147.9 FRAX RISK QUESTIONS: Alcohol (3 or more units per day): NO Family History (Parent hip fracture): NO Glucocorticoids (More than 3mos): NO (Ex: prednisone, prednisolone, methylprednisolone, dexamethasone, and hydrocortisone). History of Fracture in Adulthood: YES, RIGHT FOOT, LEFT FOOT, LEFT HAND Secondary Osteoporosis: 1. Type 1 Diabetes: NO 2. Hyperthyroidism: NO 3. Menopause before 45: NO 4. Malnutrition: YES, AFTER GASTRIC SURGERY 5. Chronic liver disease: NO Rheumatoid Arthritis: NO Current Tobacco Use: NO RISK FACTORS HISTORY OF: Hip Fracture (Right/Left): NO Spine Fracture: NO History of Wrist Fracture: NO Surgery to Spine/Hip(right/left)/Wrist (right/left): NO Family History of Osteoporosis: YES, FATHER AND POSSIBLY MOTHER Active: YES Diet low in dairy products/other sources of calcium: NO Postmenopausal woman: YES Lost more than 2 inches in height since high school: NO Frequent falls: NO Poor Health: NO Hyperparathyroidism: NO Adrenal Insufficiency: NO MEDICATIONS: Prednisone or other steroids: NO Thyroid Medications: NO Osteoporosis Medications: NO Additional Medications: CALCIUM, MULTIVITAMIN, REFLUX MEDICATION, DEPRESSION AND ANXIETY MEDS, IBS ME DS, SEVERAL SUPPLEMENTS, ALLERGY MEDS Additional History: SEVERAL GASTRIC SURGERIES EXAM MEASUREMENTS: Bone mineral densitometry was performed using the [employer] 360 System. Bone mineral density as measured about the Lumbar spine is: ----- L1-L4(G/cm2): 1.171 T Score Values are as follows: ----- L1: -0.7 ----- L2: -0.2 ----- L3: 0.2 ----- L4: 0.1 ----- L1-L4: -0.1 BASELINE Bone mineral density about the R hip (g/cm2): 1.005 Bone mineral density about the L hip (g/cm2): 0.956 T Score values are as follows: -----R Neck: -0.2 -----L Neck: -0.6 -----R Total: -0.7 -----L Total: -0.2 BASELINE FRAX%s: The graph provided illustrates a 10.3% chance for a major osteoporotic fx and a 0.4% chance f or the hips probability for fx in 10 years time. IMPRESSION: Normal (Values between +1 and -1 indicate normal bone mass). Consider repeating this study in 5 year s or sooner if there is some new clinical indication. NOTE: T-SCORE=SD OF THE YOUNG ADULT MEAN.
--- NOTE | 2022-04-25 15:21 | MM ---
Reason for Exam: Screening (asymptomatic). Last mammogram was performed 2 year(s) and 6 month(s) ago. Patient History: Menarche at age 13. First Full-Term at age 23. Hysterectomy at age 45. Hormonal Contraceptives for 10 years from age 18 until age 30. Benign Excisional Biopsy on the left side. Benign Excisional Biopsy on the left side. Risk Values: Leola 5 year model risk: 1.7%. NCI Lifetime model risk: 10.7%. Prior Study Comparison: 12/04/2014 Bilateral Screening Mammogram, [facility]. 10/11/2017 Bilateral Screening Mammogram, [facility]. 10/29/2019 Bilateral Diagnostic Mammogram, [facility]. Tissue Density: The breast tissue is heterogeneously dense. This may lower the sensitivity of mammography. Findings: Analyzed By CAD. Pattern appears symmetrical and stable. Benign calcification within the left breast. No suspicious groups of microcalcifications, spiculated or lobular masses, architectural distortion or other secondary signs of malignancy are mammographically apparent. Overall Assessment: Benign, BI-RAD 2 Management: Screening Mammogram of both breasts in 1 year. A negative mammogram report should not preclude additional follow up of suspicious palpable abnormalities. Patient should continue monthly self breast exam. A clinical breast exam by your physician is recommended on an annual basis and results should be correlated with mammographic findings. Electronically signed and approved by: Frankie Gomez D.O. Radiologis
== END | disposition home or self-care (01) ==
LOC: RADMAMWWP 13:10
PROVIDERS: ATTEND Family Medicine
DX: Z12.31 Encounter for screening mammogram for malignant neoplasm of breast (principal); Z78.0 Asymptomatic menopausal state; Z98.890 Other specified postprocedural states
CPT/HCPCS: 77063; 77067; 77080

== ENCOUNTER → 2022-08-30 | Outpatient (CLI) | payer BC ==
[2022-08-31 13:44] LABS: HLA B27 POSITIVE
== END | disposition home or self-care (01) ==
LOC: LABWHC1 14:42
PROVIDERS: ATTEND Family Medicine
DX: M25.50 Pain in unspecified joint (principal); M79.7 Fibromyalgia
CPT/HCPCS: 36415; 86812

== ENCOUNTER → 2023-03-14 | Outpatient (CLI) | payer BC ==
--- NOTE | 2023-03-14 14:47 | XR ---
EXAMINATION TYPE: XR pelvis AP view DATE OF EXAM: 03/14/2023 CLINICAL HISTORY: pain TECHNIQUE: Single view the pelvis is submitted. FINDINGS: No evidence for fracture, dislocation or bony lesion. Joint spaces are well-preserved. S I joints appear symmetric. IMPRESSION: 1. No acute fracture or dislocation seen. ICD 10 NO FRACTURE, INITIAL EVALUATION
--- NOTE | 2023-03-14 14:49 | XR ---
EXAMINATION TYPE: XR thoracic spine complete DATE OF EXAM: 03/14/2023 CLINICAL HISTORY: pain TECHNIQUE: Frontal, lateral, and swimmer's view of thoracic spine are obtained. COMPARISON: None. FINDINGS: Thoracic spine show satisfactory alignment without evidence of acute fracture or dislocatio n. Vertebral body heights are preserved. Mild scattered degenerative disc space narrowing. Visuali zed ribs are unremarkable. IMPRESSION: No acute fracture or dislocation is seen in the thoracic spine. ICD 10 NO FRACTURE, INIT IAL EVALUATION
--- NOTE | 2023-03-14 14:53 | XR ---
EXAMINATION TYPE: XR cervical spine comp DATE OF EXAM: 03/14/2023 CLINICAL HISTORY: pain COMPARISON: NONE TECHNIQUE: Frontal, lateral, oblique, swimmers, and open mouth view of the cervical spine are obtaine d. FINDINGS: The cervical spine is visualized in its entirety from C1 thru the top of T1 level. It is s atisfactory in alignment without evidence of acute fracture or dislocation. The pre-vertebral soft t issue appears within normal limits. Changes of ACDF at C4-C6 with anterior fixation plate in place an d screws noted. Postoperative alignment is anatomic. Mild degenerative narrowing at C6-7. No malalign ment seen. The C1-C2 articulation is unremarkable on the open mouth view. The oblique images are wit hin normal limits. IMPRESSION: No acute fracture or dislocation is seen in the cervical spine.ICD 10 NO FRACTURE, INITI AL EVALUATION
--- NOTE | 2023-03-16 07:18 | XR ---
EXAMINATION TYPE: XR lumbosacral spine min 4V DATE OF EXAM: 03/14/2023 CLINICAL HISTORY: pain COMPARISON: NONE TECHNIQUE: Frontal, lateral, and oblique images of the lumbar spine are obtained. FINDINGS: There are 5 lumbar type vertebral bodies identified. The lumbar spine shows satisfactory alignment without evidence of acute fracture or dislocation. Vertebral body heights are within normal limits. Disc spaces are well preserved. The overlying soft tissue appears unremarkable. IMPRESSION: No acute fracture or dislocation is seen in the lumbar spine.ICD 10 NO FRACTURE, INITIAL EVALUATION
== END | disposition home or self-care (01) ==
LOC: RADXRMAIN 13:17
PROVIDERS: ATTEND Internal Medicine Rheumatology
DX: M54.6 Pain in thoracic spine (principal); M54.2 Cervicalgia; R10.2 Pelvic and perineal pain
CPT/HCPCS: 72050; 72072; 72110; 72170

== ENCOUNTER → 2023-06-28 | Outpatient (CLI) | payer BC ==
--- NOTE | 2023-07-02 17:55 | MM ---
Reason for Exam: Screening (asymptomatic). Last mammogram was performed 1 year(s) and 2 month(s) ago. Patient History: Menarche at age 13. First Full-Term at age 23. Hysterectomy at age 45. Hormonal Contraceptives for 10 years from age 18 until age 30. Benign Excisional Biopsy on the left side. Benign Excisional Biopsy on the left side. Risk Values: Leola 5 year model risk: 1.7%. NCI Lifetime model risk: 10.4%. Prior Study Comparison: 10/11/2017 Bilateral Screening Mammogram, [facility]. 10/29/2019 Bilateral Diagnostic Mammogram, [facility]. 04/21/2022 Bilateral MG 3D screening mammo w/cad, [facility]. Tissue Density: The breasts are heterogeneously dense, which may obscure small masses. Findings: Analyzed By CAD. There is no suspicious group of microcalcifications or new suspicious mass in either breast. Overall Assessment: Negative, BI-RAD 1 Management: Screening Mammogram of both breasts in 1 year. . Patient should continue monthly self-breast exams. A clinical breast exam by your physician is recommended on an annual basis. This exam should not preclude additional follow-up of suspicious palpable abnormalities. Note on Leola scores and lifetime risk: 1. A Leola score greater than 3% is considered moderate risk. If this is the case, consider specialist referral to assess eligibility for a risk reducing agent. 2. If overall lifetime risk for the development of breast cancer is 20% or higher, the patient may qualify for future screening with alternating mammogram and breast MRI. Electronically signed and approved by: Raheel Patel M.D. Radiologist
== END | disposition home or self-care (01) ==
LOC: RADMAMWWP 15:22
PROVIDERS: ATTEND Family Medicine
DX: Z12.31 Encounter for screening mammogram for malignant neoplasm of breast (principal)
CPT/HCPCS: 77063; 77067

== ENCOUNTER → 2023-06-28 | Outpatient (CLI) | payer BC ==
--- NOTE | 2023-06-28 17:18 | CT ---
EXAMINATION TYPE: CT cervical spine wo con CT DLP: 365.5 mGycm, Automated exposure control for dose reduction was used. DATE OF EXAM: 06/28/2023 4:21 PM COMPARISON: 10/23/2020. CLINICAL INDICATION:Female, 57 years old with history of Z98.1 ARTHRODESIS STATUS; PHH, Migranes and neck pain since last cervical fusion x 2 years ago. TECHNIQUE: Axial CT images from the skull base to the inferior aspect of T2 we obtained without intra venous contrast. Coronal and sagittal reformatted images were also reviewed. Contrast used: mL of , (if blank None) Oral contrast used: (if blank None) FINDINGS: Fracture: None. Osseous structures: Postsurgical changes at C4, C5 and C6. There is osseous fusion of the C4-C5 verte bral bodies is incomplete fusion of C5-C6. Hardware appears intact. Mild multilevel degeneration campbell ges are otherwise visualized disc space narrowing and facet and uncovertebral joint arthropathy. Vertebral alignment: Alignment within normal limits. Spinal canal/Neural Foramina: No evidence of significant spinal canal narrowing. No evidence for sign ificant neural foraminal stenosis. Neck soft tissues: Prevertebral soft tissues are within normal limits. No organizing fluid collection s. Postsurgical changes posterior soft tissues. Other: The airway is patent. The lung apices are clear. IMPRESSION: 1. No evidence of cervical spine fracture. 2. Postsurgical changes at C4-C5 and C6. There is osseous fusion of the C4-C5 vertebral bodies is inc omplete fusion of C5-C6. Hardware appears intact. 3. Mild multilevel degenerative disc disease.
== END | disposition home or self-care (01) ==
LOC: RADCTMAIN 15:50
PROVIDERS: ATTEND Neurological Surgery
DX: Z98.1 Arthrodesis status (principal); M50.30 Other cervical disc degeneration, unspecified cervical region; M43.22 Fusion of spine, cervical region; Z86.69 Personal history of other diseases of the nervous system and sense organs
CPT/HCPCS: 72125

== ENCOUNTER → 2023-08-22 | Outpatient (CLI) | payer BC ==
--- NOTE | 2023-08-22 12:17 | FL ---
EXAMINATION TYPE: FL UGI w esophagus DATE OF EXAM: 08/22/2023 COMPARISON: 04/26/2021 HISTORY: 57-year-old female R11.2 NAUSEA WITH VOMITING, UNSPECIFIED. Patient with history of prior Ni ssen fundoplication 10 years ago and revision 5 years ago. Reports prior esophageal stretching. Recen t endoscopy. Instructed liquid diet. TECHNIQUE: A double contrast esophagram and UGI study is performed. A total of 4 minutes 31 seconds of fluoroscopic time was utilized during procedure and 186 images obtained. Total dose area product (DAP) in uGy*m?, mGy*cm? (or similar): 802.39. FINDINGS: Patient is status post C4-C6 ACDF. Swallowing mechanism appears normal and hypopharyngeal anatomy is maintained. No abnormal narrowing of the cervical esophagus. The thoracic esophagus shows course and caliber. No fixed narrowing. Moderate tertiary peristaltic wa ves are present in the distal esophagus resulting in some delay in clearance. No hiatal hernia or gastroesophageal reflux is identified. There is very unusual, tortuous appearance to the stomach. Only a trickle contrast made its way to th e duodenum despite extensive manipulation and patient positioning. This results in prominent pooling of contrast in the stomach limiting its assessment. IMPRESSION: 1. No esophageal stricture or mucosal abnormality seen. There is moderate dysmotility of the distal e sophagus. 2. No recurrent hiatal hernia. 3. Very tortuous configuration of the stomach seems to have been present back in 2021 as well. 4. There was poor emptying of the stomach despite extensive patient repositioning. The prominently po oled contrast limits the overall assessment of the stomach. Correlate with findings on endoscopy to e xclude an underlying abnormal annular narrowing. Gastroparesis may be a differential consideration.
== END | disposition home or self-care (01) ==
LOC: RADUSWWP 10:16
PROVIDERS: ATTEND Thoracic Surgery (Cardiothoracic Vascular Surgery)
DX: K22.4 Dyskinesia of esophagus (principal); R11.2 Nausea with vomiting, unspecified; Z98.890 Other specified postprocedural states
CPT/HCPCS: 74240

== ENCOUNTER → 2024-08-08 | Outpatient (CLI) | payer BC ==
[2024-08-08 15:08] LABS: Partial Thromboplastin Time 23.4 sec (22.0-30.0); Prothrombin Time 10.7 sec (10.0-12.5)
[2024-08-08 19:36] LABS: Basophils # (A) 0.06 X 10*3/uL (0.00-0.10); Basophils % (A) 1.2 %; HCT 43.5 % (37.2-46.3); HGB 14.1 g/dL (12.0-15.0); Lymphocytes # (A) 1.48 X 10*3/uL (0.90-5.00); Lymphocytes % (A) 29.3 %; MCH 32.9 pg (27.0-32.0); MCHC 32.4 g/dL (32.0-37.0); MCV 101.6 FL (80.0-97.0); Mean Platelet Volume 10.4 FL (9.5-12.2); Monocytes # (A) 0.48 X 10*3/uL (0.20-1.00); Monocytes % (A) 9.5 %; NRBC Per 100 WBC 0 X 10*3/uL (0.00-0.01); Neutrophils # (A) 2.91 X 10*3/uL (1.80-7.70); Neutrophils % (A) 57.6 %; Platelet Count 323 X 10*3/uL (140-440); RBC 4.28 X 10*6/uL (4.10-5.20); RDW 13.1 % (11.5-14.5); WBC 5.05 X 10*3/uL (4.50-10.00)
[2024-08-08 21:40] LABS: ALT 44 U/L (8-44); AST 34 U/L (13-35); Albumin 4.5 g/dL (3.8-4.9); Alkaline Phosphatase 63 U/L (41-126); BUN/Creat Ratio 16.73 Ratio (12.00-20.00); Blood Urea Nitrogen 18.4 mg/dL (9.0-27.0); Calcium 10.5 mg/dL (8.7-10.3); Carbon Dioxide 20.9 mmol/L (21.6-31.8); Chloride 105 mmol/L (96-109); Globulin 2.5 g/dL (1.6-3.3); Glucose 109 mg/dL (70-110); Potassium 4.3 mmol/L (3.5-5.5); Sodium 141 mmol/L (135-145); Total Bilirubin 0.3 mg/dL (0.3-1.2)
[2024-08-09 02:21] LABS: Appearance,Urine Clear (Clear); Bilirubin,Urine Negative (Negative); Blood,Urine Negative (Negative); Color,Urine Yellow (Yellow); Ketones,Urine Trace (Negative); Nitrite,Urine Negative (Negative); PH, Urine 5.5; Specific Gravity,Urine 1.025 (1.001-1.030); Urobilinogen,Urine 0.2 E.U./DL
[2024-08-09 04:23] LABS: Bacteria,Urine None Seen (None Seen); Uric Acid Crystals,Urine Present (None Seen)
== END | disposition home or self-care (01) ==
LOC: LABPAT 13:22
PROVIDERS: ATTEND Neurological Surgery
DX: Z01.818 Encounter for other preprocedural examination (principal)
CPT/HCPCS: 80053; 81001; 83036; 84134; 85025; 85610; 85730; 87070

== ENCOUNTER → 2024-10-14 | Outpatient (CLI) | payer BC ==
--- NOTE | 2024-10-14 15:38 | XR ---
EXAMINATION TYPE: XR cervical spine limited DATE OF EXAM: 10/14/2024 CLINICAL HISTORY: pain TECHNIQUE: 3 views of the cervical spine are submitted. COMPARISON: None. FINDINGS: There is satisfactory in alignment without evidence of acute fracture or dislocation. The pre-vertebral soft tissue appears within normal limits.Postoperative changes of ACDF extending from C4 through C7. Normal postoperative alignment. The C1-C2 articulation is unremarkable on the open linnette th view. IMPRESSION: No acute fracture or dislocation is seen in the cervical spine. [facility], , 10/14/2024 3:36 PM
== END | disposition home or self-care (01) ==
LOC: RADXRMAIN 14:20
PROVIDERS: ATTEND Neurological Surgery
DX: M43.22 Fusion of spine, cervical region (principal)
CPT/HCPCS: 72040